=== PATIENT | female | born 1940 | race Caucasian/White ===

== ENCOUNTER 2016-03-17 12:24 | Inpatient (IN) | payer MEDICARE, OTHER ==
[~2016-03-17] VITALS: Ht 165.1 cm; Wt 68.2 kg
[~2016-03-17 12:24] MED LIST: DONE5TAB7 PO; NEBI5TAB9 PO; PRED20TA PO; TRAM50TA2 PO
[2016-03-17] MEDS ORDERED: morphine 2 MG INJ IV STA (15:46)
[2016-03-17] MEDS ORDERED: SOD CHLORIDE 0.9% 1,000 ML IV STA (15:46)
[2016-03-17] MEDS ORDERED: ONDANSETRON 4 MG INJ IV STA (15:46)
[2016-03-17 16:52] LABS: BASOPHILS % 0.4 % (0.0-2.0); CONDITION 1; HEMATOCRIT 41.9 % (37.0-47.0); HEMOGLOBIN 14.4 g/dl (12.0-16.0); LH ANALYZER COMMENTS 1; LYMPHOCYTES # 1.1 10^3/ul (0.8-2.9); LYMPHOCYTES % 17.4 % (15.0-51.0); MEAN CORPUSCULAR HEMOGLOBIN 30.4 pg (29.0-33.0); MEAN CORPUSCULAR HGB CONC 34.3 g/dl (32.0-37.0); MEAN CORPUSCULAR VOLUME 88.7 fl (82.0-101.0); MEAN PLATELET VOLUME 6.5 fl (7.4-10.4); MONOCYTE # 0.9 10^3/ul (0.3-0.9); NEUTROPHIL # 4.1 10^3/ul (1.6-7.5); NEUTROPHILS % 68.2 % (39.0-77.0); PLATELET COUNT 221 10^3/UL (140-440); RED BLOOD COUNT 4.72 10^6/ul (4.20-5.40); RED CELL DISTRIBUTION WIDTH 14.6 % (11.5-14.5); UNCORRECTED WBC 6.1 10^3/ul (4.8-10.8); WHITE BLOOD COUNT 6.1 10^3/ul (4.8-10.8)
[2016-03-17 17:01] LABS: ALBUMIN 3.5 g/dl (3.3-4.9); CHLORIDE 98 mmol/L (97-110); POTASSIUM 3.7 mmol/L (3.5-5.1); SODIUM 133 mmol/L (135-144)
[2016-03-17 17:02] LABS: INR 0.97; PROTIME 12.9 Sec (12.2-14.2)
[2016-03-17 17:03] LABS: CREATININE 0.88 mg/dl (0.44-1.00); PARTIAL THROMBOPLASTIN TIME 28.7 Sec (25.0-35.0)
[2016-03-17 17:04] LABS: ALANINE AMINOTRANSFERASE 46 IU/L (13-69); ALBUMIN/GLOBULIN RATIO 1.06; ALKALINE PHOSPHATASE 113 IU/L (42-121); ANION GAP 18 (8-16); ASPARTATE AMINO TRANSFERASE 58 IU/L (15-46); BILIRUBIN,INDIRECT 0.5 mg/dl (0-1.1); BILIRUBIN,TOTAL 0.5 mg/dl (0.2-1.3); BLOOD UREA NITROGEN 21 mg/dl (7-20); CARBON DIOXIDE 21 mmol/L (21-31); GLUCOSE 77 mg/dl (70-220); TOTAL PROTEIN 6.8 g/dl (6.1-8.1)
--- NOTE | 2016-03-17 17:10 | ERA ---
ER Documentation Chief Complaint Date/Time DATE: 03/17/16 TIME: 17:07 Chief Complaint sob, diarrhea HPI 75-year-old female who presents with family member for abdominal pain. Family reports abdominal pain nausea and diarrhea. She states multiple episodes of stool to the point where the patient cannot even get out of bed and is having regular bowel movements. She also collapsed once to the floor without hitting her head. She is having mild shortness of breath related to asthma but this is improving. She denies any chest pain, no pleuritic pain. No recent travel, sick contacts, antibiotics. Her abdominal pain is noted to the right upper quadrant, she states prior cholecystectomy. The pain is noted to be sharp and intermittent associated with diarrhea. ROS All systems reviewed and are negative except as per history of present illness. Medications Home Meds Active Scripts Tramadol HCl (Tramadol HCl) 50 Mg Tablet, 50 MG PO BID, #30 TAB Prov:TONY ALEJANDRO MD 01/19/16 Reported Medications Nebivolol* (Bystolic*) 5 Mg Tab, 5 MG PO DAILY, #30 TAB 01/15/16 Donepezil* (Donepezil*) 5 Mg Tablet, 5 MG PO DAILY, #30 TAB 01/15/16 Discontinued Scripts Prednisone* (Prednisone*) 20 Mg Tab, 20 MG PO DAILY for 5 Days, TAB Prov:TONY ALEJANDRO MD 01/19/16 Allergies Allergies: Coded Allergies: No Known Allergy (Unverified , 03/17/16) PMhx/Soc History of Surgery: Yes (APPENDECTOMY, CHOLECYSTECTOMY) Anesthesia Reaction: No Hx Neurological Disorder: No Hx Respiratory Disorders: No Hx Cardiac Disorders: Yes (HTN) Hx Psychiatric Problems: No Hx Miscellaneous Medical Probl: No Hx Alcohol Use: No Hx Substance Use: No Hx Tobacco Use: No Smoking Status: Never smoker FmHx Family History: No diabetes Physical Exam Vitals Vital Signs Date Time Temp Pulse Resp B/P Pulse Ox O2 Delivery O2 Flow Rate FiO2 03/17/16 18:02 74 18 108/57 98 Nasal Cannula 2.0 03/17/16 12:29 99.0 101 20 120/58 98 Physical Exam General: Well developed, well nourished, no acute distress Head: Normocephalic, atraumatic. Eyes: Pupils equally reactive, EOM intact ENT: Moist mucous membranes Neck: Supple, no lymphadenopathy Respiratory: Lungs clear bilaterally, no distress Cardiovascular: RRR, no murmurs, rubs, or gallops Abdominal: Soft, mild focal tenderness in the right upper quadrant without rebound or guarding, no pulsatile mass : Deferred MSK: No edema, no unilateral swelling, 5/5 strength Neurologic: Alert and oriented, moving all extremities, normal speech, no focal weakness, no cerebellar signs Skin: No rash Psych: Normal mood Result Diagram: 03/17/16 1635 03/17/16 1635 Results 24 hrs Laboratory Tests Test 03/17/16 16:35 Activated Partial Thromboplast Time 28.7Sec Alanine Aminotransferase (ALT/SGPT) 46IU/L Albumin 3.5g/dl Albumin/Globulin Ratio 1.06 Alkaline Phosphatase 113IU/L Anion Gap 18 Aspartate Amino Transf (AST/SGOT) 58IU/L Basophils # 0.010^3/ul Basophils % 0.4% Blood Morphology Comment Blood Urea Nitrogen 21mg/dl Calcium Level 9.0mg/dl Carbon Dioxide Level 21mmol/L Chloride Level 98mmol/L Creatinine 0.88mg/dl Direct Bilirubin 0.00mg/dl Eosinophils # 0.010^3/ul Eosinophils % 0.0% Globulin 3.30g/dl Glucose Level 77mg/dl Hematocrit 41.9% Hemoglobin 14.4g/dl INR International Normalized Ratio 0.97 Indirect Bilirubin 0.5mg/dl Lipase 356U/L Lymphocytes # 1.110^3/ul Lymphocytes % 17.4% Mean Corpuscular Hemoglobin 30.4pg Mean Corpuscular Hemoglobin Concent 34.3g/dl Mean Corpuscular Volume 88.7fl Mean Platelet Volume 6.5fl Monocytes # 0.910^3/ul Monocytes % 14.0% Neutrophils # 4.110^3/ul Neutrophils % 68.2% Nucleated Red Blood Cells # 0.010^3/ul Nucleated Red Blood Cells % 0.0/100WBC Platelet Count 35147^3/UL Potassium Level 3.7mmol/L Prothrombin Time 12.9Sec Prothrombin Time Ratio 1.0 Red Blood Count 4.7210^6/ul Red Cell Distribution Width 14.6% Sodium Level 133mmol/L Total Bilirubin 0.5mg/dl Total Protein 6.8g/dl Troponin I < 0.012ng/ml White Blood Count 6.110^3/ul Current Medications Medications (Trade) Dose Ordered Sig/Balaji Route PRN Reason Start Time Stop Time Status Last Admin Dose Admin Sodium Chloride (NS) 1,000 ml @ 1,000 mls/hr Q1H STAT IV 03/17/16 15:46 03/17/16 16:45 DC 03/17/16 17:05 Morphine Sulfate (morphine) 2 mg ONCE STAT IV 03/17/16 15:46 03/17/16 15:48 DC 03/17/16 17:05 Ondansetron HCl 4 mg 4 mg ONCE STAT IV 03/17/16 15:46 03/17/16 15:48 DC 03/17/16 17:04 Azithromycin (Zithromax 500mg/ NS (Pmx)) 250 ml @ 250 mls/hr ONCE ONCE IVPB 03/17/16 20:00 03/17/16 20:59 DC 03/17/16 20:09 Ondansetron HCl (Zofran Inj) 4 mg ER BRIDGE PRN IV NAUSEA AND/OR VOMITING 03/17/16 21:00 03/18/16 20:59 Acetaminophen (Tylenol Tab) 650 mg ER BRIDGE PRN PO MILD PAIN/FEVER 03/17/16 21:00 03/18/16 20:59 Procedures/MDM EKG, MONITORS, & DIAGNOSTIC IMAGING: EKG: I reviewed and interpreted a 12-lead EKG. Rhythm: Normal sinus rhythm Ectopy: None Intervals: No abnormalities ST segments: No elevations or depressions T waves: No contiguous inversions Chest x-ray: I reviewed and interpreted a 1 view of the chest Mediastinum: No enlargement Cardiac silhouette: No cardiomegaly Airspace: Clear lung rivas bilaterally without evidence of pneumothorax Bones: No evidence of fracture CT abdomen and pelvis: IMPRESSION: 1. Small high density fluid in the right adnexal region, likely reflecting small blood products of uncertain etiology. An underlying ruptured hemorrhagic ovarian cyst could be considered.. 2. Patchy reticulonodular interstitial densities through the lower lungs, suspicious for atypical infection, possibly Mycobacterium avium complex. 3. Mild to moderate aortic and branch vessel calcification. 4. Splenorenal venous shunt. 5. There is a prominent anterior left mesenteric vessel, with adjacent fat stranding. This may reflect a mesenteric thrombophlebitis. 6. Lumbar levoscoliosis. RPTAT: HBST Ultrasound pelvis: IMPRESSION: Very limited transabdominal study. Filled urinary bladder and the patient declined endovaginal scanning. Nonvisualization of the ovaries. CT with IV and oral contrast may be helpful to at least better delineate the pelvic small bowel loops. MRI could evaluate the uterus and ovaries if endovaginal ultrasound cannot be performed. RPTAT: [facility] LAB INTERPRETATION: No significant leukocytosis, no anemia MEDICAL DECISION MAKING: The patient presents with abdominal pain and diarrhea. This is most likely a viral process however the patient is elderly with focal tenderness of the right upper quadrant. I believe she would benefit from CT imaging of the abdomen and pelvis. Her symptoms do not seem consistent with acute vascular process such as aneurysm. No evidence of pulmonary embolism. The patient reports a history of cholecystectomy raising the concern for possible bowel obstruction. Her shortness of breath seems to be related to mild asthma, she has no wheezing no hypoxia currently. No signs of acute coronary syndrome. No indication for breathing treatment currently. ER COURSE: The patient has multiple diagnostic imaging that are somewhat confusing. The patient's CT reads multiple issues including possible thrombophlebitis, possible MAC and possible hemorrhagic cyst. The patient's pelvic ultrasound is unrevealing. Her constellation of symptoms do not match the CT findings. The patient has no significant cough, no fevers, no white count. Infection seems unlikely. However, the patient will be covered with azithromycin. No indication for steroids. Her CT findings more likely represent underlying COPD. The patient has no lower abdominal tenderness. Unclear etiology to the patient's possible hemorrhagic cyst. Thrombophlebitis also seems unlikely. The patient may benefit from repeat CT with IV contrast. I discussed this with the admitting team. At this time given the possible near syncope and multiple abnormalities and diagnostic imaging inpatient hospitalization is appropriate. I kept the patient and/or family informed of laboratory and diagnostic imaging results throughout the emergency room course. DISPOSITION PLAN: Telemetry admission for evaluation of near syncope CONSULTATION: Accepting care team and consultations: I discussed the current laboratory data, diagnostic imaging and emergency care provided. Admitting team: Dr. Iniguez Admitting team indication: Insurance directed Departure Diagnosis: Primary Impression: Abdominal pain Qualified Code: R10.84 - Generalized abdominal pain Additional Impressions: Diarrhea Qualified Code: R19.7 - Diarrhea, unspecified type Near syncope Condition: Stable BORM, FRANCISCO A., MD Mar 17, 2016 17:09
[2016-03-17 17:17] LABS: TROPONIN-I < 0.012 ng/ml (0.00-0.12)
--- NOTE | 2016-03-17 17:22 | RADRPT ---
PROCEDURE: XR Chest. CLINICAL INDICATION: Abdominal pain TECHNIQUE: Single frontal view of the chest was obtained COMPARISON: 01/31/2016 FINDINGS: The heart is within normal limits. The thoracic aorta is calcified. There is increased lucency underneath the right diaphragm, which may represent bowel eventration ravinder brenda free air. The lungs are clear. There is no pleural effusion or pneumothorax. RPTAT: AA IMPRESSION: Questionable free air underneath the right diaphragm. Calcified aorta consistent with atherosclerotic disease. A call report was made and the findings discussed with Josef Mccoy at 03/17/2016 5:21:08 P M. .Mayo Cooper MD, MD Date Time Electronically viewed and signed by .Mayo Cooper MD, on 03/17/2016 17:22 .S/
--- NOTE | 2016-03-17 19:02 | RADRPT ---
PROCEDURE: CT abdomen and pelvis without contrast. CLINICAL INDICATION: Patient experiencing Abdominal Pain TECHNIQUE: CT scan of the abdomen and pelvis without contrast was performed. The patient was scan gabriel without intravenous contrast. 3-D coronal reformatted images were obtained from the [facility] images. The calculated radiation dose measures 602 mGy centimeters. The CTDI measures 11 mGy COMPARISON: 01/15/2016 FINDINGS: CT abdomen: There is patchy reticulonodular interstitial densities through the bilateral lower lungs. There is bronchial wall thickening.. The liver is normal in size and density, without intrahepatic biliary dilatation. The spleen and p ancreas are unremarkable noncontrast appearance. The gallbladder is surgically absent . There is mi ld associated prominence of the common bile duct.. The adrenal glands are symmetric and normal. The kidneys appear normal in size and contour. No renal calculus or hydronephrosis is visualized. There is no retroperitoneal lymphadenopathy. There is mild to moderate aortic and branch vessel calc ification. There is a thickened appearing vascular structure in the left anterior abdominal mesenter y, with adjacent fat stranding. There is a splenorenal venous shunt. Visualized bowel loops appear within normal limits. The appendix is not well seen, without adjacent inflammatory change.. CT pelvis: The urinary bladder appears normal. The pelvic organs are within normal limits. There is no abnorm al pelvic mass or adenopathy. There is small high density fluid in the pelvis, seen in the right ad nexal region. There is a right trans sacral stimulator lead. There is a mild lumbar levoscoliosis. IMPRESSION: 1. Small high density fluid in the right adnexal region, likely reflecting small blood products of uncertain etiology. An underlying ruptured hemorrhagic ovarian cyst could be considered.. 2. Patchy reticulonodular interstitial densities through the lower lungs, suspicious for atypical i nfection, possibly Mycobacterium avium complex. 3. Mild to moderate aortic and branch vessel calcification. 4. Splenorenal venous shunt. 5. There is a prominent anterior left mesenteric vessel, with adjacent fat stranding. This may ref lect a mesenteric thrombophlebitis. 6. Lumbar levoscoliosis. RPTAT: HBST .Virgil Butts MD, MD Date Time Electronically viewed and signed by .Virgil Butts MD, on 03/17/2016 19:02 .T/
[2016-03-17] MEDS ORDERED: AZITHROMYCIN 500MG/NS (PMX) 250 ML IVPB ONE (20:00)
--- NOTE | 2016-03-17 20:01 | RADRPT ---
PROCEDURE: US pelvis complete CLINICAL INDICATION: Pelvic high density fluid on CT. Question ovarian lesion. TECHNIQUE: Jimenez scale and color Doppler imaging of the pelvis was performed. The patient declined endovaginal scanning. The images were reviewed on a PACS workstation. COMPARISON: CT from earlier FINDINGS: The uterus measures 8.4 x 4.7 x 6.3 centimeters. The endometrial stripe was not able to be seen as the patient declined endovaginal scanning in the urinary bladder was not filled for the examination. Neither ovary was able to be seen. A small of free fluid was seen in the cul-de-sac but the more h igh-density fluid suggested by CT was not clearly appreciated. Very limited study. IMPRESSION: Very limited transabdominal study. Filled urinary bladder and the patient declined endovaginal scan dayami. Nonvisualization of the ovaries. CT with IV and oral contrast may be helpful to at least bet ter delineate the pelvic small bowel loops. MRI could evaluate the uterus and ovaries if endovagina l ultrasound cannot be performed. RPTAT: [facility] Physician Paula Date Time Electronically viewed and signed by Sarah Padilla Physician on 03/17/2016 20:00 LE/
[2016-03-17] MEDS ORDERED: ACETAMINOPHEN 325 MG TAB PO PRN (21:00)
[2016-03-17] MEDS ORDERED: ONDANSETRON 4 MG INJ IV PRN (21:00)
[2016-03-17] MEDS: FAMOTIDINE 20 MG INJ IV SCH (23:58)
[2016-03-18] VITALS (10 sets, daily range): BP systolic 113–159; BP diastolic 52–74; PULSE 59–78; RESP 16–20; TEMP 98; Ht 165.1 cm; Wt 68.2 kg
[2016-03-18] MEDS ORDERED: ONDANSETRON 4 MG INJ IV PRN
--- NOTE | 2016-03-18 00:40 | HP ---
DATE OF ADMISSION: 03/17/2016 PRESENTING COMPLAINT: Intermittent abdominal pain with associated diarrhea. HISTORY OF PRESENTING COMPLAINT: Ms. Meyers is a 75-year-old female who comes with a myriad of sym ptoms and it is unclear how everything is connected. Physically, she says that she has been having epigastric abdominal pain that has been worse over the last 3 days. She says she has been having th is pain intermittently for the past 9 months and it tends to come on its own and tends to resolve on its own. This episode, however, for the first time is associated with intractable diarrhea that oc curs about 4 or 5 times a day. Her reports that sometimes the patient is unable to control her bowel enough to get to the bathroom to where she has to wear a diaper. The patient also has bee n having some shortness of breath without chest discomfort, but today she had a near collapse episod e, which her attributes to dehydration from the diarrhea. At that point, the decision was m carly to bring her to the emergency room for evaluation. Of note is that there was no fever. There w as no chest pain. She denies any headaches. There is no weakness in any extremity or anything that is suggestive of focal deficit. There are no vision changes. There are no earaches. There is no joint pain. She has occasional blood in her stool, but she does not have nausea, she does not have vomiting. She cannot really ascertain if the blood is in the stool or was present after she wiped. However, she denies history of contacts with sick persons and her and herself are the only ones who live at home and her does not have similar symptoms. In the emergency room, CT sca n of her abdomen and pelvis was read by radiology to show multiple findings, which include a probabi lity of a ruptured hemorrhagic ovarian cyst, atypical probable pneumonia, and probable mesenteric th rombophlebitis. However, pain is located more in the epigastric region and radiates to her right up per quadrant; however, the patient is status post cholecystectomy and there is no evidence of gallst ones on CT of the abdomen. Ultrasound of the upper abdomen was not done. She is being admitted for further workup and better control of her symptoms. The patient and her are extremely poor historians. A lot of our history is obtained by reviewing previous medical records. PAST MEDICAL HISTORY: Positive for high blood pressure only. 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 SURGICAL HISTORY: She has had an appendectomy as well as a cholecystectomy. The patient has had ri [facility] [place] breast partial mastectomy for ductal carcinoma in situ. FAMILY HISTORY: Positive for high blood pressure, diabetes, dementia, and cardiac disease in both p arents and grandparents. SOCIAL HISTORY: The patient is a chronic smoker. She has cut back now, but smokes about half a pac k a day, and has smoked for many years, up to 35 years. She denies alcohol or illicit drug use, how ever. REVIEW OF SYSTEMS: A 12-point review of system was done. Pertinent findings are as noted in the HP I. HOME MEDICATION: 1. Donepezil 5 mg daily. 2. Bystolic 5 mg daily. 3. Tramadol 50 mg p.o. b.i.d. PHYSICAL EXAMINATION VITAL SIGNS: Temperature 99.0, pulse is 74, respirations 18, blood pressure 108/57, saturations are 98% on room air. GENERAL: The patient did look somewhat lethargic, but she was alert and oriented, in no distress. HEENT: Head is normocephalic with equal, round, and reactive pupils. Mucous membranes are moist. She did have mild conjunctival pallor, but there was no scleral jaundice. Her posterior pharynx was clear of erythema and exudate. NECK: Supple and nontender. CHEST: Reveals clear breath sounds with good air entry on both sides. CARDIOVASCULAR: Heart sounds were S1 and S2 only without added sounds or murmurs. ABDOMEN: She did have mild right upper quadrant tenderness, point tenderness to palpation, not so m uch epigastric tenderness, however. There was no flank tenderness. She has normoactive bowel sound s in 4 quadrants. EXTREMITIES: Lower extremity was devoid of edema. SKIN: Devoid of rash or jaundice. NEUROLOGIC: She had no focal deficits. PSYCHIATRIC: She was calm, cooperative with exam, and denies hearing voices or hallucinations. LABORATORY VALUES: She had a CBC that was unremarkable. Her chemistry had the following nonspecifi c abnormalities: Serum sodium that was slightly low at 133. BUN that was slightly elevated at 21. AST that was slightly elevated at 58. However, this is not new for patient. Her troponins and the rest of her LFTs were unremarkable. Globulin level was slightly high at 3.3. Lipase level was jus t barely high at 356. The last time she was here, lipase was 67 two months ago. Urinalysis is pend ing at this time. I reviewed previous lab results and imaging studies. Today's imaging studies, ho andree, a chest x-ray, on my review, basically did not show any real acute cardiopulmonary abnormalit ies. However, the radiologist thought there was some free air underneath the right diaphragm. CT o f the abdomen and pelvis was done and essentially this free air was not confirmed; however, the find ings are summarized in my HPI were noted. A pelvic ultrasound was done to evaluate concerns for pro bable ruptured ovarian cyst. It did show that it was a very limited study, and the high-density flu id on CT was not clearly appreciated. The radiologist is recommending that if we wanted to proceed, we could do an MRI of the pelvis to further evaluate the uterus and the ovaries more appropriately, if patient continues to refuse and endovaginal ultrasound, which would have been more informative. EKG: I reviewed her EKG and it was nonischemic with normal sinus rhythm, normal rate control. ASSESSMENT: A 75-year-old female who presents with a 3-day history of abdominal pain and diarrhea a nd CT of the abdomen showing multiple abnormalities. 1. Epigastric abdominal pain and diarrhea. This could be secondary to an acute pancreatitis. Even though the patient's lipase levels are barely elevated, they are still significantly elevated as co mpared to prior and could explain the symptoms. Hence, the patient will be treated as ____ for panc reatitis, keeping her n.p.o., IV fluid hydration, and intravenous PPI therapy as well as pain contro l. We will also, however, order stool studies and see what we find. 2. Near syncopal episode likely secondary to dehydration from diarrhea. The dehydration is also vickers pported by the elevated BUN in her labs. Again continue hydration and see how she does. We will al so put the patient on fall precautions. 3. Chronic smoker. The patient is status post tobacco cessation counseling. This will continue to be reinforced during her hospitalization. This has taken more than [address] findings of reticulonodular densities throughout the lower lungs concerning for possible atyp ical infection. I will get a dedicated CT of the chest to better define the lung parenchyma, prefer ably with IV contrast and depending on the findings, we will proceed from there. 5. Findings of small high-density fluid in the right adnexal region with concerns for probable hemo rrhagic ovarian cyst. This is unlikely in this patient; however, patient also has no symptoms of pe lvic pain at this time or concerns of pelvic etiology of her problems. As such, we will continue to observe only and intervene only if there is concern, if the patient develops belly pain or develops vaginal bleeding that is concerning. 6. Concern for mesenteric thrombophlebitis based on findings of a prominent anterior mesenteric ves ronald. We will repeat the CT of the abdomen with intravenous contrast again to properly define these regions and intervene only if findings are confirmed. 7. History of ductal carcinoma in situ status post partial mastectomy. We will try and obtain andrew rds to find out where the patient stands with this, as the patient's and herself are not ravinder y good historians, and see if any further interventions are required. Probability of occult metasta sis would explain some of the CT findings. Again followup CT with IV contrast. 8. Chronic dementia. Continue home donepezil. 9. High blood pressure. Continue home Bystolic. 10. Supportive care will include pain control, antiemetics, and antipyretics as necessary. 11. Prophylaxis will be with heparin as well as Pepcid intravenously. For further intervention and clarifications, please review the patient's chart and my orders. Admission time has been about an hour. Dictated By: ROZ BECK MD, BA/MAYKEL Conf#: [id number] DID#: [id number]
[2016-03-18 00:43] LABS: CREATINE KINASE 30 IU/L (23-200)
[2016-03-18 00:53] LABS: CK-MB 0.39 ng/ml (0.0-2.4)
[2016-03-18 01:07] LABS: TROPONIN-I < 0.012 ng/ml (0.00-0.12)
[2016-03-18] MEDS: DEXTROSE 5%-0.45% NACL 1,000 ML IV SCH ×3 (01:08→20:11)
[2016-03-18 06:01] LABS: BASOPHILS % 0.8 % (0.0-2.0); EOSINOPHILS % 0.4 % (0.0-7.0); HEMATOCRIT 37.9 % (37.0-47.0); HEMOGLOBIN 12.9 g/dl (12.0-16.0); LYMPHOCYTES # 1.4 10^3/ul (0.8-2.9); LYMPHOCYTES % 34.8 % (15.0-51.0); MEAN CORPUSCULAR HEMOGLOBIN 30.4 pg (29.0-33.0); MEAN CORPUSCULAR HGB CONC 33.9 g/dl (32.0-37.0); MEAN CORPUSCULAR VOLUME 89.5 fl (82.0-101.0); MEAN PLATELET VOLUME 6.8 fl (7.4-10.4); MONOCYTE # 0.6 10^3/ul (0.3-0.9); NEUTROPHIL # 1.9 10^3/ul (1.6-7.5); PLATELET COUNT 151 10^3/UL (140-440); RED BLOOD COUNT 4.23 10^6/ul (4.20-5.40); RED CELL DISTRIBUTION WIDTH 14.8 % (11.5-14.5)
[2016-03-18 06:03] LABS: CONDITION 1; LH ANALYZER COMMENTS 1
[2016-03-18 06:05] LABS: ALBUMIN 2.5 g/dl (3.3-4.9)
[2016-03-18 06:06] LABS: POTASSIUM 3.7 mmol/L (3.5-5.1)
[2016-03-18 06:07] LABS: CREATININE 0.77 mg/dl (0.44-1.00)
[2016-03-18 06:08] LABS: BILIRUBIN,INDIRECT 0.4 mg/dl (0-1.1); BILIRUBIN,TOTAL 0.4 mg/dl (0.2-1.3); CALCIUM 8.1 mg/dl (8.4-10.2); TOTAL PROTEIN 5.2 g/dl (6.1-8.1)
[2016-03-18 06:09] LABS: CHOL/HDL RATIO 4.7 RATIO
[2016-03-18 06:12] LABS: CREATINE KINASE 30 IU/L (23-200)
[2016-03-18 06:26] LABS: TROPONIN-I < 0.012 ng/ml (0.00-0.12)
[2016-03-18] MEDS: traMADol 50 MG TAB PO PRN ×2 (06:34→20:11)
[2016-03-18] MEDS: ASPIRIN (EC) 81 MG TAB PO SCH (08:45)
[2016-03-18] MEDS: FAMOTIDINE 20 MG INJ IV SCH ×2 (08:45→20:11)
[2016-03-18] MEDS: DOCUSATE SODIUM 100 MG CAP PO SCH ×3 (08:45→20:11)
[2016-03-18] MEDS: ENOXAPARIN 40 MG/0.4 ML SYG SC SCH (08:49)
[2016-03-18] MEDS: NEBIVOLOL 5 MG TAB PO SCH ×2 (08:50→12:17)
[2016-03-18] MEDS: DONEPEZIL 5 MG TAB PO SCH ×2 (08:50→12:16)
[2016-03-18] MEDS ORDERED: IOHEXOL 300MG/ML 150 ML BTL ONE (08:56)
[2016-03-18] MEDS ORDERED: SOD CHLORIDE 0.9% 100 ML ONE (08:56)
--- NOTE | 2016-03-18 12:04 | PN ---
Date/Time of Note Date/Time of Note DATE: 03/18/16 TIME: 11:54 Assessment/Plan VTE Prophylaxis VTE Prophylaxis Intervention: LMWH Lines/Catheters IV Catheter Type (from [facility]): Peripheral IV Urinary Cath still in place: No Assessment/Plan Chief Complaint/Hosp Course Assessment and plan 1. Abdominal pain. Suspect secondary to pancreatitis. Continue IV fluids for now. npo for now. Continue on PPI 2. Reported syncope. Suspect secondary to dehydration from reported diarrhea. Continue IV hydration. 3. Suspect mesenteric thrombophlebitis. CT scan of the abdomen with IV contrast is pending. Follow-up. 4. Suspect underlying ruptured hemorrhagic ovarian cyst. A CT scan of the abdomen and pelvis with IV contrast ordered. We'll follow-up with diagnostic for better imaging. 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 Awaiting CT scan of the chest with contrast for further delineation. Check AFB 6. History of dementia. Continue on donepezil 7. Essential hypertension. Continue on antihypertensives and adjust as needed Disposition and plan: Follow-up on CT scan of the abdomen and chest with contrast. npo for now. Continue IV fluids Discussed plan of care with Problems: Subjective 24 Hr Interval Summary Free Text/Dictation still with reported abdominal pain Exam/Review of Systems Vital Signs Vitals Vital Signs Date Time Temp Pulse Resp B/P Pulse Ox O2 Delivery O2 Flow Rate FiO2 03/18/16 09:01 68 03/18/16 07:31 98.4 18 136/60 95 03/18/16 06:53 Room Air 03/18/16 02:00 2.0 Results Result Diagram: 03/18/16 0510 03/18/16 0510 Results 24 hrs Laboratory Tests Test 03/17/16 16:35 03/18/16 05:10 03/18/16 05:16 Activated Partial Thromboplast Time 28.7 Alanine Aminotransferase (ALT/SGPT) 46 33 Albumin 3.5 2.5 #L Albumin/Globulin Ratio 1.06 Alkaline Phosphatase 113 86 Anion Gap 18 H 12 Aspartate Amino Transf (AST/SGOT) 58 H 59 H Basophils # 0.0 0.0 Basophils % 0.4 0.8 Blood Morphology Comment Blood Urea Nitrogen 21 H 23 H Calcium Level 9.0 8.1 L Carbon Dioxide Level 21 24 Chloride Level 98 103 Creatinine 0.88 0.77 Direct Bilirubin 0.00 0.00 Eosinophils # 0.0 0.0 Eosinophils % 0.0 0.4 Globulin 3.30 H Glucose Level 77 70 Hematocrit 41.9 37.9 Hemoglobin 14.4 12.9 INR International Normalized Ratio 0.97 Indirect Bilirubin 0.5 0.4 Lipase 356 H 373 H Lymphocytes # 1.1 1.4 Lymphocytes % 17.4 34.8 Mean Corpuscular Hemoglobin 30.4 30.4 Mean Corpuscular Hemoglobin Concent 34.3 33.9 Mean Corpuscular Volume 88.7 89.5 Mean Platelet Volume 6.5 L 6.8 L Monocytes # 0.9 0.6 Monocytes % 14.0 H 16.0 H Neutrophils # 4.1 1.9 Neutrophils % 68.2 48.0 Nucleated Red Blood Cells # 0.0 0.0 Nucleated Red Blood Cells % 0.0 0.0 Platelet Count 221 151 # Potassium Level 3.7 3.7 Prothrombin Time 12.9 Prothrombin Time Ratio 1.0 Red Blood Count 4.72 4.23 Red Cell Distribution Width 14.6 H 14.8 H Sodium Level 133 L 135 Total Bilirubin 0.5 0.4 Total Protein 6.8 5.2 #L Troponin I < 0.012 < 0.012 White Blood Count 6.1 4.0 #L Amylase Level 104 Cholesterol Level 137 Cholesterol/HDL Ratio 4.7 HDL Cholesterol 29 L LDL Cholesterol, Calculated 88 Magnesium Level 2.0 Triglycerides Level 99 Creatine Kinase 30 Creatine Kinase Index 1.3 Creatinine Kinase MB (Mass) 0.40 Medications Medications Current Medications Donepezil HCl (Aricept) 5 mg DAILY PO ; Start 03/18/16 at 09:00 Miscellaneous Medication (Bystolic) 5 mg DAILY PO ; Start 03/18/16 at 09:00 Tramadol HCl (Ultram) 50 mg BID PRN PO pain Last administered on 03/18/16at 06: 34; Admin Dose 50 MG; Start 03/17/16 at 23:30 Aspirin (Halfprin) 81 mg DAILY PO Last administered on 03/18/16at 08:45; Admin Dose 81 MG; Start 03/18/16 at 09:00 Ondansetron HCl 4 mg 4 mg Q6H PRN IV NAUSEA AND/OR VOMITING; Start 03/18/16 at 00:00 Dextrose/Sodium Chloride (D5-1/2ns) 1,000 ml @ 100 mls/hr Q10H IV Last administered on 03/18/16at 08:46; Admin Dose 100 MLS/HR; Start 03/18/16 at 00: 00 Famotidine (Pepcid Iv) 20 mg BID IV Last administered on 03/18/16at 08:45; Admin Dose 20 MG; Start 03/18/16 at 00:00 Enoxaparin Sodium (Lovenox) 40 mg DAILY SC Last administered on 03/18/16at 08: 49; Admin Dose 40 MG; Start 03/18/16 at 09:00 Acetaminophen (Tylenol Tab) 650 mg Q6H PRN PO PAIN AND OR ELEVATED TEMP; Start 03/18/16 at 00:00 Morphine Sulfate (morphine) 2 mg Q4H PRN IV pain; Start 03/18/16 at 00:00 Docusate Sodium (Colace) 100 mg BID PO ; Start 03/18/16 at 00:00 LUCAS VELASCO Mar 18, 2016 12:03
--- NOTE | 2016-03-18 13:07 | RADRPT ---
PROCEDURE: CT Chest, Abdomen and Pelvis with intravenous contrast CLINICAL INDICATION: Dyspnea, pain. TECHNIQUE: CT of the chest, abdomen, and pelvis was performed on a multi-detector scanner. The pa tietroy was scanned following the uncomplicated administration of 100 cc Omnipaque-300 intravenous con trast. Coronal and sagittal images were obtained from the axial data set. Images were reviewed on a high-resolution PACS workstation. CTDI = 12.48 mGy. DLP = 866 mGy-cm. COMPARISON: CT, 03/17/2016 and 08/30/2015 FINDINGS: CT chest: Chronic biapical scarring and bronchiectasis is again noted, greater on the right, grossly stable ov er time. There is mild pulmonary emphysema. Areas of tree in bud opacity are noted at the bilatera l lung bases, greater on the left, new when compared to the prior CT, suggestive of infectious or in flammatory bronchiolitis. No pleural effusion or pneumothorax is seen. No suspicious pulmonary nod ule or mass lesion is identified. The heart size is normal, without pericardial effusion. There is no thoracic aortic aneurysm or dis section. Aortic atherosclerotic calcifications are noted. No mediastinal, hilar, axillary or supra clavicular lymphadenopathy is identified. The patient appears to be status post right breast lumpec tiffany. 4.4 cm low density collection is seen in the right breast, most likely postoperative seroma. CT abdomen and pelvis: Gallbladder is surgically absent. Liver demonstrates surface nodularity, concerning for cirrhosis. Superior mesenteric vein to left renal vein portosystemic shunt is identified, which can be seen in the setting of portal hypertension. Biliary tree, pancreas, spleen, adrenal glands and kidneys are unremarkable. No urolithiasis or obstructive uropathy is identified. The stomach is grossly unrem arkable. There is no abdominal aortic aneurysm or dissection. Aortic vascular calcifications are present. T here is no retroperitoneal lymphadenopathy. The ramon hepatis region is clear. No bowel obstruction, free intraperitoneal air or abscess is identified. There is no diverticulosis , diverticulitis, colitis or appendicitis. Again noted is mild inflammatory stranding surrounding a vascular structure in the lateral left omental fat, of uncertain etiology or significance. Urinary bladder is unremarkable. Uterus demonstrates a 3 cm fibroid. No pelvic free fluid or lymphadenopa thy is seen. Implanted stimulator device is present within left flank subcutaneous fat. The surrounding osseous structures are remarkable for degenerative spondylosis of the spine. No ost eolytic or osteoblastic lesion is detected. IMPRESSION: 1. Findings compatible with bilateral lower lobe infectious/inflammatory bronchiolitis, as above. 2. Mild pulmonary emphysema. 3. The patient is status post right breast lumpectomy. 4.4 cm low density collection is seen in th e surgical bed, most likely postoperative seroma. 4. Liver demonstrates surface nodularity, concerning for cirrhosis. Portosystemic shunt is identif ied, as described above, which can be seen in the setting of portal hypertension. 5. Gallbladder is surgically absent. 6. Aortoiliac atherosclerotic calcifications are present. 7. Mild inflammatory stranding/edema is seen surrounding a vascular structure in the lateral left o mental fat, unchanged from recent prior CT, of uncertain significance or etiology. 8. Uterus demonstrates a 3 cm fibroid. No pelvic free fluid is seen. RPTAT: UU .Dann Barnett MD, MD Date Time Electronically viewed and signed by .Dann Barnett MD, on 03/18/2016 13:07 .R/
--- NOTE | 2016-03-18 14:06 | RADRPT ---
Echocardiogram Report Patient Name: KATHLEEN ENCINAS Gender: Female Date: 1940 Study Date: 18-Mar-2016 [employer] Advisor: Johanna Rodriguez RDCS Location: [id number] Ref. Physician: ROZ BECK Quality: Good Procedures: Transthoracic echocardiogram with complete 2D, M-Mode, and doppler examination. Indications: Shortness of breath. 2D/M Mode Doppler Measurement Value Normal Ranges Measurement Value Normal Ranges LVIDd 2D 4.2 3.5 - 5.6 cm AV Peak Rodrigue 1.7 m/sec LVIDs 2D 2.2 2.1 - 4.1 cm AV Peak PG 12.0 mmHg LVPWd 2D 0.9 0.6 - 1.1 cm LVOT Peak Rodrigue 1.2 m/sec IVSd 2D 0.8 0.6 - 1.1 cm LVOT Peak PG 5.5 mmHg AoR Diam 2D 1.9 2.0 - 3.7 cm MV E Peak Rodrigue 0.8 m/sec EDV 2D 78.6 cm3 MV A Peak Rodrigue 0.8 m/sec ESV 2D 10.5 cm3 MV E/A 0.9 LA Dimen 2D 3.7 2.3 - 4.0 cm MV Decel Time 262 msec MV Decel [place] 3 MV E/A 0.9 Findings Left Ventricle: Normal left ventricular systolic function. Normal left ventricular cavity size. Normal left ventricular wall thickness. Ejection fraction is visually estimated at 65 %. Tissue Doppler/Mitral Doppler indices are consistent with impaired relaxation (Stage I diastolic dysfunction). Right Ventricle: Normal right ventricular size. Normal right ventricular systolic function. Left Atrium: The left atrium is normal in size. Right Atrium: The right atrium is normal in size. Mitral Valve: Mitral valve leaflets appear mildly thickened. Trace mitral regurgitation. Aortic Valve: Normal appearance of the aortic valve. No significant aortic stenosis or insufficiency. Tricuspid Valve: Normal appearance and function of the tricuspid valve with trace physiologic regurgitation. Pulmonic Valve: Normal pulmonic valve appearance. Pericardium: Normal pericardium with no significant pericardial effusion. Aorta: Normal aortic root. IVC: Normal size and normal respiratory collapse consistent with normal right atrial pressure. Pulmonary Artery: Normal pulmonary artery size. Conclusions 1.Normal left ventricular systolic function. Normal left ventricular cavity size. Normal left ventricular wall thickness. Ejection fraction is visually estimated at 65 %. Tissue Doppler/Mitral Doppler indices are consistent with impaired relaxation (Stage I diastolic dysfunction). 2.Normal right ventricular size. Normal right ventricular systolic function. 3.The left atrium is normal in size. 4.The right atrium is normal in size. 5.No significant valvular stenosis or regurgitation seen. 6.Normal pericardium with no significant pericardial effusion. Electronically Signed By: Ben Mark 18-Mar-2016 14:05:58 -0800 Patient Name: KATHLEEN ENCINAS Study Date: 18-Mar-2016 [id number]
[2016-03-18] MEDS: morphine 2 MG INJ IV PRN (17:04)
[2016-03-19 06:52] LABS: ADD UMIC YES; URINE BILIRUBIN (Dip) NEGATIVE (NEGATIVE); URINE BLOOD (Dip) 1+ (NEGATIVE); URINE COLOR LT. YELLOW (YELLOW); URINE GLUCOSE (Dip) NEGATIVE (NEGATIVE); URINE KETONES (Dip) NEGATIVE (NEGATIVE); URINE LEUKOCYTE ESTERASE (Dip) 1+ (NEGATIVE); URINE NITRITE (Dip) NEGATIVE (NEGATIVE); URINE TOTAL PROTEIN (Dip) NEGATIVE (NEGATIVE); URINE UROBILINOGEN (Dip) 1.0 E.U./dL (0.1-1.0)
[2016-03-19 07:34] LABS: BACTERIA,URINE FEW; URINE RBCS 0-2 /HPF (0)
[2016-03-19] MEDS: LEVOFLOXACIN 500MG/D5W (PMX) 100 ML IVPB SCH (09:40)
[2016-03-19] MEDS: FAMOTIDINE 20 MG INJ IV SCH ×2 (09:42→23:13)
[2016-03-19] MEDS: ENOXAPARIN 40 MG/0.4 ML SYG SC SCH (09:42)
[2016-03-19] MEDS: DEXTROSE 5%-0.45% NACL 1,000 ML IV SCH ×2 (09:48→18:54)
--- NOTE | 2016-03-19 10:34 | PN ---
Date/Time of Note Date/Time of Note DATE: 03/19/16 TIME: 10:22 Assessment/Plan VTE Prophylaxis VTE Prophylaxis Intervention: LMWH Lines/Catheters IV Catheter Type (from Nrs): Peripheral IV Urinary Cath still in place: No Assessment/Plan Assessment/Plan 1. Abdominal pain and diarrhea. Suspect secondary to pancreatitis vs gastroenteritis vs abd pain possibly from ?raptured ovarian cyst. - symptom improved, pt already asking to eat. plan is to start clear diet and advance as tolerated. Will consider additional imaging as needed. pain meds PRN. Continue on PPI 2. Reported syncope. Suspect secondary to dehydration from reported diarrhea. Continue IV hydration. - 2D-echo with preserved EF and trops neg x 3 - Cont to monitor closely 3. Suspect mesenteric thrombophlebitis. CT scan of the abdomen with IV contrast is pending. Follow-up. 4. Suspect underlying ruptured hemorrhagic ovarian cyst. REWORKER consult based on clinical course. 5. 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 checking AFB. Awaiting pulmonary eval 6. History of dementia. Continue Donepezil 7. Essential hypertension. Continue on antihypertensives and adjust as needed Subjective 24 Hr Interval Summary Free Text/Dictation sleepy, but somehow arousable. not interested in talking. No diarrhea per nursing Exam/Review of Systems Vital Signs Vitals Vital Signs Date Time Temp Pulse Resp B/P Pulse Ox O2 Delivery O2 Flow Rate FiO2 03/18/16 20:10 98.6 59 20 148/64 98 Room Air 03/18/16 02:00 2.0 Intake and Output 03/18/16 03/18/16 03/19/16 14:59 22:59 06:59 Intake Total 740 ml 700 ml Output Total 200 ml Balance 740 ml 500 ml Exam Constitutional: other (sleepy, but somehow arousable. not interested in talking ) Head: atraumatic, normocephalic Respiratory: diminished breath sounds Cardiovascular: regular rate and rhythm Gastrointestinal: other (mild grimaces noted on palpation), soft Extremities: normal pulses Results Result Diagram: 03/18/16 0510 03/18/16 0510 Results 24 hrs Laboratory Tests Test 03/19/16 04:30 Urine Bacteria FEW Urine Bilirubin NEGATIVE Urine Clarity CLEAR Urine Color LT. YELLOW Urine Epithelial Cells FEW Urine Glucose NEGATIVE Urine Hemoglobin 1+ H Urine Ketones NEGATIVE Urine Leukocyte Esterase 1+ H Urine Microscopic RBC 0-2 Urine Microscopic WBC 10-25 Urine Nitrite NEGATIVE Urine Specific [place] 1.010 Urine Total Protein NEGATIVE Urine Urobilinogen 1.0 E.U./dL Urine pH 6.5 Medications Medications Current Medications Donepezil HCl (Aricept) 5 mg DAILY PO Last administered on 03/18/16 12:16; Admin Dose 5 MG; Start 03/18/16 at 09:00 Miscellaneous Medication (Bystolic) 5 mg DAILY PO Last administered on 12:17; Admin Dose 5 MG; Start 03/18/16 at 09:00 Tramadol HCl (Ultram) 50 mg BID PRN PO pain Last administered on 03/18/16 20: 11; Admin Dose 50 MG; Start 03/17/16 at 23:30 Aspirin (Halfprin) 81 mg DAILY PO Last administered on 03/18/16 08:45; Admin Dose 81 MG; Start 03/18/16 at 09:00 Ondansetron HCl 4 mg 4 mg Q6H PRN IV NAUSEA AND/OR VOMITING; Start 03/18/16 at 00:00 Dextrose/Sodium Chloride (D5-1/2ns) 1,000 ml @ 100 mls/hr Q10H IV Last administered on 03/19/16 09:48; Admin Dose 100 MLS/HR; Start 03/18/16 at 00: 00 Famotidine (Pepcid Iv) 20 mg BID IV Last administered on 03/19/16 09:42; Admin Dose 20 MG; Start 03/18/16 at 00:00 Enoxaparin Sodium (Lovenox) 40 mg DAILY SC Last administered on 03/19/16 09: 42; Admin Dose 40 MG; Start 03/18/16 at 09:00 Acetaminophen (Tylenol Tab) 650 mg Q6H PRN PO PAIN AND OR ELEVATED TEMP; Start 03/18/16 at 00:00 Morphine Sulfate (morphine) 2 mg Q4H PRN IV pain Last administered on 17:04; Admin Dose 2 MG; Start 03/18/16 at 00:00 Docusate Sodium 100 mg 100 mg BID PO Last administered on 03/18/16at 20:11; Admin Dose 100 MG; Start 03/18/16 at 00:00 Levofloxacin/ Dextrose (Levaquin 500mg/ D5W 100 ml (Pmx)) 100 ml @ 100 mls/hr Q24H IVPB Last administered on 03/19/16at 09:40; Admin Dose 100 MLS/HR; Start 03/19/16 at 09:00 TONY ALEJANDRO MD Mar 19, 2016 10:32
[2016-03-19] MEDS: ASPIRIN (EC) 81 MG TAB PO SCH (12:45)
[2016-03-19] MEDS: DONEPEZIL 5 MG TAB PO SCH (12:45)
[2016-03-19] MEDS: DOCUSATE SODIUM 100 MG CAP PO SCH ×2 (12:46→20:57)
[2016-03-19] MEDS: NEBIVOLOL 5 MG TAB PO SCH (12:46)
[2016-03-19 13:13] VITALS: BP 146/81; PULSE 66; RESP 20
[2016-03-19 14:04] LABS: POTASSIUM 3.3 mmol/L (3.5-5.1)
[2016-03-19 14:06] LABS: CREATININE 0.56 mg/dl (0.44-1.00)
[2016-03-19 14:07] LABS: BASOPHILS % 0.3 % (0.0-2.0); CALCIUM 8.3 mg/dl (8.4-10.2); EOSINOPHILS % 0.4 % (0.0-7.0); HEMATOCRIT 37.2 % (37.0-47.0); HEMOGLOBIN 12.4 g/dl (12.0-16.0); LYMPHOCYTES # 1.7 10^3/ul (0.8-2.9); LYMPHOCYTES % 42.1 % (15.0-51.0); MEAN CORPUSCULAR HEMOGLOBIN 29.8 pg (29.0-33.0); MEAN CORPUSCULAR HGB CONC 33.5 g/dl (32.0-37.0); MEAN PLATELET VOLUME 6.6 fl (7.4-10.4); MONOCYTE # 0.6 10^3/ul (0.3-0.9); MONOCYTES % 14.2 % (0.0-11.0); NEUTROPHIL # 1.7 10^3/ul (1.6-7.5); PLATELET COUNT 194 10^3/UL (140-440); RED BLOOD COUNT 4.17 10^6/ul (4.20-5.40); RED CELL DISTRIBUTION WIDTH 14.8 % (11.5-14.5)
[2016-03-19 14:20] LABS: CONDITION 1; LH ANALYZER COMMENTS 1
[2016-03-19] MEDS: morphine 2 MG INJ IV PRN ×2 (15:23→23:14)
[2016-03-19 20:00] VITALS: BP 105/46; PULSE 58; RESP 24
[2016-03-19] MEDS ORDERED: POTASSIUM CHLORIDE 20 MEQ POWDER FOR ORAL SOLN PO ONE (20:00)
[2016-03-19] MEDS ORDERED: POTASSIUM CHLORIDE 20 MEQ in SOD CHLORIDE 0.9% 100 ML IVPB ONE (20:00)
[2016-03-20] MEDS: DEXTROSE 5%-0.45% NACL 1,000 ML IV SCH ×3 (02:00→16:52)
[2016-03-20] MEDS: morphine 2 MG INJ IV PRN ×3 (05:44→16:48)
[2016-03-20 06:04] LABS: BASOPHILS % 0.4 % (0.0-2.0); EOSINOPHILS # 0.1 10^3/ul (0.0-0.5); EOSINOPHILS % 1.1 % (0.0-7.0); HEMATOCRIT 38.5 % (37.0-47.0); HEMOGLOBIN 13.1 g/dl (12.0-16.0); LYMPHOCYTES # 2.3 10^3/ul (0.8-2.9); LYMPHOCYTES % 46.4 % (15.0-51.0); MEAN CORPUSCULAR HEMOGLOBIN 30.3 pg (29.0-33.0); MEAN CORPUSCULAR VOLUME 89.2 fl (82.0-101.0); MEAN PLATELET VOLUME 6.7 fl (7.4-10.4); MONOCYTE # 0.8 10^3/ul (0.3-0.9); NEUTROPHIL # 1.8 10^3/ul (1.6-7.5); NEUTROPHILS % 36.1 % (39.0-77.0); PLATELET COUNT 178 10^3/UL (140-440); RED BLOOD COUNT 4.32 10^6/ul (4.20-5.40); RED CELL DISTRIBUTION WIDTH 14.8 % (11.5-14.5); UNCORRECTED WBC 4.9 10^3/ul (4.8-10.8); WHITE BLOOD COUNT 4.9 10^3/ul (4.8-10.8)
[2016-03-20 06:05] LABS: POTASSIUM 3.8 mmol/L (3.5-5.1)
[2016-03-20 06:07] LABS: CREATININE 0.51 mg/dl (0.44-1.00)
[2016-03-20 06:08] LABS: CALCIUM 8.7 mg/dl (8.4-10.2)
[2016-03-20 06:28] LABS: CONDITION 1; LH ANALYZER COMMENTS 1
[2016-03-20] MEDS: LEVOFLOXACIN 500MG/D5W (PMX) 100 ML IVPB SCH (08:33)
[2016-03-20] MEDS: FAMOTIDINE 20 MG INJ IV SCH ×2 (08:36→20:04)
[2016-03-20] MEDS: DOCUSATE SODIUM 100 MG CAP PO SCH ×2 (08:38→20:05)
[2016-03-20] MEDS: ASPIRIN (EC) 81 MG TAB PO SCH (08:38)
[2016-03-20] MEDS: NEBIVOLOL 5 MG TAB PO SCH (08:38)
[2016-03-20] MEDS: DONEPEZIL 5 MG TAB PO SCH (08:39)
[2016-03-20] MEDS: ENOXAPARIN 40 MG/0.4 ML SYG SC SCH (08:43)
[2016-03-20 10:30] VITALS: BP 138/68; PULSE 60; RESP 18
--- NOTE | 2016-03-20 10:43 | PN ---
Date/Time of Note Date/Time of Note DATE: 03/20/16 TIME: 10:41 Assessment/Plan VTE Prophylaxis VTE Prophylaxis Intervention: LMWH Lines/Catheters IV Catheter Type (from Nrs): Peripheral IV Urinary Cath still in place: No Assessment/Plan Assessment/Plan 1. Abdominal pain and diarrhea. Suspect secondary to pancreatitis vs gastroenteritis vs abd pain possibly from ?raptured ovarian cyst. - symptom improved, pt already asking to eat. plan is to start clear diet and advance as tolerated. Will consider additional imaging as needed. pain meds PRN. Continue on PPI 2. Reported syncope. Suspect secondary to dehydration from reported diarrhea. Continue IV hydration. - 2D-echo with preserved EF and trops neg x 3 - Cont to monitor closely 3. Suspect mesenteric thrombophlebitis. CT scan of the abdomen with IV contrast is pending. Follow-up. 4. Suspect underlying ruptured hemorrhagic ovarian cyst. [employer]ER consult based on clinical course. 5. 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 checking AFB. Awaiting pulmonary eval 6. History of dementia. Continue Donepezil 7. Essential hypertension. Continue on antihypertensives and adjust as needed Subjective 24 Hr Interval Summary Free Text/Dictation sleepy. no distress. AFB sputum was collected today Exam/Review of Systems Vital Signs Vitals Vital Signs Date Time Temp Pulse Resp B/P Pulse Ox O2 Delivery O2 Flow Rate FiO2 03/20/16 10:30 98.1 60 18 138/68 100 Room Air 03/18/16 02:00 2.0 Intake and Output 03/19/16 03/19/16 03/20/16 15:00 23:00 07:00 Intake Total 900 ml 1900 ml 1440 ml Output Total 1400 ml Balance 900 ml 500 ml 1440 ml Exam Constitutional: other (sleepy, but somehow arousable. not interested in talking ) Head: atraumatic, normocephalic Respiratory: diminished breath sounds Cardiovascular: regular rate and rhythm Gastrointestinal: other (mild grimaces noted on palpation), soft Extremities: normal pulses Results Result Diagram: 03/20/16 0517 03/20/16 0506 Results 24 hrs Laboratory Tests Test 03/19/16 13:35 03/20/16 05:06 03/20/16 05:17 Anion Gap 14 15 Basophils # 0.0 0.0 Basophils % 0.3 0.4 Blood Morphology Comment Blood Urea Nitrogen 8 # 5 L Calcium Level 8.3 L 8.7 Carbon Dioxide Level 25 25 Chloride Level 105 109 Creatinine 0.56 0.51 Eosinophils # 0.0 0.1 Eosinophils % 0.4 1.1 Glucose Level 108 73 Hematocrit 37.2 38.5 Hemoglobin 12.4 13.1 Lipase 394 H Lymphocytes # 1.7 2.3 Lymphocytes % 42.1 46.4 Mean Corpuscular Hemoglobin 29.8 30.3 Mean Corpuscular Hemoglobin Concent 33.5 34.0 Mean Corpuscular Volume 89.0 89.2 Mean Platelet Volume 6.6 L 6.7 L Monocytes # 0.6 0.8 Monocytes % 14.2 H 16.0 H Neutrophils # 1.7 1.8 Neutrophils % 43.0 36.1 L Nucleated Red Blood Cells # 0.0 0.0 Nucleated Red Blood Cells % 0.0 0.0 Platelet Count 194 # 178 Potassium Level 3.3 L 3.8 Red Blood Count 4.17 L 4.32 Red Cell Distribution Width 14.8 H 14.8 H Sodium Level 141 145 H White Blood Count 4.0 L 4.9 # Medications Medications Current Medications Donepezil HCl (Aricept) 5 mg DAILY PO Last administered on 03/20/16at 08:39; Admin Dose 5 MG; Start 03/18/16 at 09:00 Miscellaneous Medication (Bystolic) 5 mg DAILY PO Last administered on 08:38; Admin Dose 5 MG; Start 03/18/16 at 09:00 Tramadol HCl (Ultram) 50 mg BID PRN PO pain Last administered on 03/18/16at 20: 11; Admin Dose 50 MG; Start 03/17/16 at 23:30 Aspirin (Halfprin) 81 mg DAILY PO Last administered on 03/20/16 08:38; Admin Dose 81 MG; Start 03/18/16 at 09:00 Ondansetron HCl 4 mg 4 mg Q6H PRN IV NAUSEA AND/OR VOMITING; Start 03/18/16 at 00:00 Dextrose/Sodium Chloride (D5-1/2ns) 1,000 ml @ 100 mls/hr Q10H IV Last administered on 03/20/16at 05:48; Admin Dose 100 MLS/HR; Start 03/18/16 at 00: 00 Famotidine (Pepcid Iv) 20 mg BID IV Last administered on 03/20/16 08:36; Admin Dose 20 MG; Start 03/18/16 at 00:00 Enoxaparin Sodium (Lovenox) 40 mg DAILY SC Last administered on 03/20/16 08: 43; Admin Dose 40 MG; Start 03/18/16 at 09:00 Acetaminophen (Tylenol Tab) 650 mg Q6H PRN PO PAIN AND OR ELEVATED TEMP; Start 03/18/16 at 00:00 Morphine Sulfate (morphine) 2 mg Q4H PRN IV pain Last administered on 05:44; Admin Dose 2 MG; Start 03/18/16 at 00:00 Docusate Sodium 100 mg 100 mg BID PO Last administered on 03/20/16 08:38; Admin Dose 100 MG; Start 03/18/16 at 00:00 Levofloxacin/ Dextrose (Levaquin 500mg/ D5W 100 ml (Pmx)) 100 ml @ 100 mls/hr Q24H IVPB Last administered on 03/20/16 08:33; Admin Dose 100 MLS/HR; Start 03/19/16 at 09:00 TONY ALEJANDRO MD Mar 20, 2016 10:42
[2016-03-20 15:25] LABS: TB-NIL 0.45 IU/mL
[2016-03-20 20:00] VITALS: BP 166/67; PULSE 57; RESP 18
[2016-03-20] MEDS: hydrALAzine 20 MG INJ IV PRN (20:58)
[2016-03-20] MEDS: ACETAMINOPHEN 325 MG TAB PO PRN (22:44)
[2016-03-21] MEDS: DEXTROSE 5%-0.45% NACL 1,000 ML IV SCH ×3 (04:39→18:00)
[2016-03-21 06:35] LABS: BASOPHILS % 0.7 % (0.0-2.0); EOSINOPHILS % 1.6 % (0.0-7.0); HEMATOCRIT 34.2 % (37.0-47.0); HEMOGLOBIN 12.1 g/dl (12.0-16.0); LYMPHOCYTES # 1.8 10^3/ul (0.8-2.9); LYMPHOCYTES % 66.8 % (15.0-51.0); MEAN CORPUSCULAR HEMOGLOBIN 31.1 pg (29.0-33.0); MEAN CORPUSCULAR HGB CONC 35.3 g/dl (32.0-37.0); MONOCYTE # 0.2 10^3/ul (0.3-0.9); MONOCYTES % 7.2 % (0.0-11.0); NEUTROPHIL # 0.6 10^3/ul (1.6-7.5); NEUTROPHILS % 23.7 % (39.0-77.0); RED BLOOD COUNT 3.88 10^6/ul (4.20-5.40); RED CELL DISTRIBUTION WIDTH 15.3 % (11.5-14.5); UNCORRECTED WBC 2.7 10^3/ul (4.8-10.8); WHITE BLOOD COUNT 2.7 10^3/ul (4.8-10.8)
[2016-03-21 06:38] LABS: CONDITION 1; MEAN PLATELET VOLUME 9.8 fl (7.4-10.4); PLATELET COUNT 105 10^3/UL (140-440)
[2016-03-21 06:39] LABS: LH ANALYZER COMMENTS 1
[2016-03-21 06:44] LABS: ALBUMIN 2.7 g/dl (3.3-4.9)
[2016-03-21 06:45] LABS: POTASSIUM 4.1 mmol/L (3.5-5.1)
[2016-03-21 06:47] LABS: ALBUMIN/GLOBULIN RATIO 0.9; BILIRUBIN,INDIRECT 0.7 mg/dl (0-1.1); BILIRUBIN,TOTAL 0.7 mg/dl (0.2-1.3); CREATININE 0.46 mg/dl (0.44-1.00); TOTAL PROTEIN 5.7 g/dl (6.1-8.1)
[2016-03-21 06:48] LABS: CALCIUM 8.6 mg/dl (8.4-10.2)
[2016-03-21 07:30] VITALS: BP 168/73; PULSE 66; RESP 18
[2016-03-21] MEDS: FAMOTIDINE 20 MG INJ IV SCH ×2 (09:12→20:32)
[2016-03-21] MEDS: morphine 2 MG INJ IV PRN (09:12)
[2016-03-21] MEDS: DOCUSATE SODIUM 100 MG CAP PO SCH ×2 (09:12→20:32)
[2016-03-21] MEDS: ASPIRIN (EC) 81 MG TAB PO SCH (09:12)
[2016-03-21] MEDS: LEVOFLOXACIN 500MG/D5W (PMX) 100 ML IVPB SCH (09:12)
[2016-03-21] MEDS: DONEPEZIL 5 MG TAB PO SCH (09:13)
[2016-03-21] MEDS: NEBIVOLOL 5 MG TAB PO SCH (09:13)
[2016-03-21] MEDS: ENOXAPARIN 40 MG/0.4 ML SYG SC SCH (09:18)
[2016-03-21 09:41] LABS: ANISOCYTOSIS 1+
[2016-03-21 09:42] LABS: PLATELET ESTIMATE PLT APPEAR DECREASED
--- NOTE | 2016-03-21 11:15 | PN ---
Date/Time of Note Date/Time of Note DATE: 03/21/16 TIME: 11:13 Assessment/Plan VTE Prophylaxis VTE Prophylaxis Intervention: LMWH Lines/Catheters IV Catheter Type (from Nrs): Peripheral IV Urinary Cath still in place: No Assessment/Plan Assessment/Plan 1. Abdominal pain and diarrhea. Suspect secondary to pancreatitis vs gastroenteritis vs abd pain possibly from ?raptured ovarian cyst. - symptom improved, pt already asking to eat. plan is to start clear diet and advance as tolerated. Will consider additional imaging as needed. pain meds PRN. Continue on PPI 2. Reported syncope. Suspect secondary to dehydration from reported diarrhea. Continue IV hydration. - 2D-echo with preserved EF and trops neg x 3 - Cont to monitor closely 3. Suspect mesenteric thrombophlebitis. CT scan of the abdomen with IV contrast is pending. Follow-up. 4. Suspect underlying ruptured hemorrhagic ovarian cyst. 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 5. 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 awaiting AFB sputum results. Quantiferon test was positive. Will place an ID consult. also awaiting pulmonary eval 6. History of dementia. Continue Donepezil 7. Essential hypertension. Continue on antihypertensives and adjust as needed Subjective 24 Hr Interval Summary Free Text/Dictation sleepy. no distress Exam/Review of Systems Vital Signs Vitals Vital Signs Date Time Temp Pulse Resp B/P Pulse Ox O2 Delivery O2 Flow Rate FiO2 03/21/16 07:30 98.4 66 18 168/73 96 Room Air 03/18/16 02:00 2.0 Intake and Output 03/20/16 03/20/16 03/21/16 15:00 23:00 07:00 Intake Total 550 ml 1050 ml Balance 550 ml 1050 ml Exam Constitutional: other (sleepy, but somehow arousable. not interested in talking ) Head: atraumatic, normocephalic Respiratory: diminished breath sounds Cardiovascular: regular rate and rhythm Gastrointestinal: other (mild grimaces noted on palpation), soft Extremities: normal pulses Results Result Diagram: 03/21/16 0503/21/16 0520 Results 24 hrs Laboratory Tests Test 03/21/16 05:20 Alanine Aminotransferase (ALT/SGPT) 26 Albumin 2.7 L Albumin/Globulin Ratio 0.90 Alkaline Phosphatase 89 Anion Gap 12 Anisocytosis 1+ Aspartate Amino Transf (AST/SGOT) 49 H Basophils # 0.0 Basophils % 0.7 Blood Morphology Comment Blood Urea Nitrogen 3 L Calcium Level 8.6 Carbon Dioxide Level 25 Chloride Level 110 Creatinine 0.46 Direct Bilirubin 0.00 Eosinophils # 0.0 Eosinophils % 1.6 Globulin 3.00 Glucose Level 88 Hematocrit 34.2 L Hemoglobin 12.1 Indirect Bilirubin 0.7 Lymphocytes # 1.8 Lymphocytes % 66.8 H Mean Corpuscular Hemoglobin 31.1 Mean Corpuscular Hemoglobin Concent 35.3 Mean Corpuscular Volume 88.0 Mean Platelet Volume 9.8 # Monocytes # 0.2 L Monocytes % 7.2 Neutrophils # 0.6 L Neutrophils % 23.7 L Nucleated Red Blood Cells # 0.0 Nucleated Red Blood Cells % 0.0 Platelet Count 105 #L Platelet Estimate PLT APPEAR DECREASED Potassium Level 4.1 Red Blood Count 3.88 L Red Cell Distribution Width 15.3 H Sodium Level 143 Total Bilirubin 0.7 Total Protein 5.7 L White Blood Count 2.7 #L Medications Medications Current Medications Donepezil HCl (Aricept) 5 mg DAILY PO Last administered on 03/21/16 09:13; Admin Dose 5 MG; Start 03/18/16 at 09:00 Miscellaneous Medication (Bystolic) 5 mg DAILY PO Last administered on 09:13; Admin Dose 5 MG; Start 03/18/16 at 09:00 Tramadol HCl (Ultram) 50 mg BID PRN PO pain Last administered on 03/18/16 20: 11; Admin Dose 50 MG; Start 03/17/16 at 23:30 Aspirin (Halfprin) 81 mg DAILY PO Last administered on 03/21/16 09:12; Admin Dose 81 MG; Start 03/18/16 at 09:00 Ondansetron HCl 4 mg 4 mg Q6H PRN IV NAUSEA AND/OR VOMITING; Start 03/18/16 at 00:00 Dextrose/Sodium Chloride (D5-1/2ns) 1,000 ml @ 100 mls/hr Q10H IV Last administered on 03/21/16 04:39; Admin Dose 100 MLS/HR; Start 03/18/16 at 00: 00 Famotidine (Pepcid Iv) 20 mg BID IV Last administered on 03/21/16 09:12; Admin Dose 20 MG; Start 03/18/16 at 00:00 Enoxaparin Sodium (Lovenox) 40 mg DAILY SC Last administered on 03/21/16 09: 18; Admin Dose 40 MG; Start 03/18/16 at 09:00 Acetaminophen (Tylenol Tab) 650 mg Q6H PRN PO PAIN AND OR ELEVATED TEMP Last administered on 03/20/16 22:44; Admin Dose 650 MG; Start 03/18/16 at 00:00 Morphine Sulfate (morphine) 2 mg Q4H PRN IV pain Last administered on 09:12; Admin Dose 2 MG; Start 03/18/16 at 00:00 Docusate Sodium 100 mg 100 mg BID PO Last administered on 03/21/16 09:12; Admin Dose 100 MG; Start 03/18/16 at 00:00 Levofloxacin/ Dextrose (Levaquin 500mg/ D5W 100 ml (Pmx)) 100 ml @ 100 mls/hr Q24H IVPB Last administered on 03/21/16 09:12; Admin Dose 100 MLS/HR; Start 03/19/16 at 09:00 Hydralazine HCl (Apresoline) 10 mg Q6H PRN IV ELEVATED BLOOD PRESSURE Last administered on 03/20/16 20:58; Admin Dose 10 MG; Start 03/20/16 at 21:00 TONY ALEJANDRO MD Mar 21, 2016 11:15
[2016-03-21] MEDS: hydrALAzine 20 MG INJ IV PRN (14:16)
--- NOTE | 2016-03-21 17:00 | CONS ---
DATE OF ADMISSION: 03/19/2016 DATE OF CONSULTATION: 03/21/2016 TYPE OF CONSULTATION: Infectious disease. REASON FOR CONSULTATION: Antibiotic management. HISTORY OF PRESENT ILLNESS: Eva Meyers is a 75-year-old female who comes in with inte rmittent abdominal pain and associated diarrhea. The patient has had epigastric abdominal pain, wor se over the last 3 days. The pain has been intermittent over the last 9 months. It tends to resolve on its own. This episode was also associated with intractable diarrhea 4 or 5 times a day. She has had to wear a diaper because it has gotten so bad. She also has some shortness of breath without ch est discomfort. She almost had a collapse, probably secondary to dehydration. She came to the [facility] room. She has no fever or chest pain. There is no nausea or vomiting. She denies contact wi th sick individuals. In the ER her CT scan of the abdomen and pelvis was read by radiology to show multiple findings, which include a probable ruptured hemorrhagic ovarian cyst, atypical pneumonia, a nd probable mesenteric thrombophlebitis. The pain is, however, more distinctly located in the epiga stric region, radiating to the right upper quadrant. She is status post cholecystectomy. There is no evidence of gallstones on the CT scan of the abdomen. Her past problems include COPD. 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 She had an tiffany endectomy and a cholecystectomy, as noted. FAMILY HISTORY: Positive for high blood pressure, diabetes, dementia and cardiac disease. SOCIAL HISTORY: She is a chronic smoker. She smokes about a half pack of cigarettes a day. She bhandari s smoked for many years, up to 35 years. She denies alcohol or illicit drugs. LABORATORY DATA: On admission on the her white count was 6.1, H and H of 14.4 and 41.9, platel et count 221,000. Her white count has gone down to 4.0 and then 4.9, and then 2.7 today, with plate lets appearing to be decreased as well, 105,000 platelets. BUN and creatinine are 3/0.46. Urine, 1 + leukocyte esterase, 1+ hemoglobin. Her urine showed mixed gram-positive organisms. Stool culture s show coliform. Clostridium difficile assay was negative. She had a sputum for AFB. She actually had 2 done, which are negative. The CT scan of the abdomen and pelvis showed bilateral lower lobe infectious inflammatory bronchiolitis, mild pulmonary emphysema, status post right breast lumpectomy . A 4.4 cm low density collection is seen in the surgical bed, most likely postoperative seroma. Her liver demonstrated surface nodularity, positive for cirrhosis. Portosystemic shunt is identified, consistent with portal hypertension. Gallbladder is absent. Aortoiliac atherosclerosis is present . Mild inflammatory stranding and edema are seen. Uterus demonstrates a 3-cm fibroid. No pelvic f luid is seen. PHYSICAL EXAMINATION: GENERAL: The patient is an elderly 75-year-old female, who is lethargic but arousable, in no acute distress. VITAL SIGNS: Stable. She is afebrile. SKIN: Without generalized rash. HEENT: Within normal limits. There is some scleral conjunctival pallor, but no scleral icterus. M outh is without pharyngeal exudates or injection. NECK: Supple. LYMPH NODES: None palpable. CHEST: Decreased breath sounds at the bases. HEART: Without murmur or gallop. ABDOMEN: Soft, nontender, without organosplenomegaly or masses. EXTREMITIES: Without cyanosis, clubbing, or edema. RECTAL AND GENITAL EXAM: Deferred. NEUROLOGIC EVALUATION: No focal neurological abnormalities. IMPRESSION AND PLAN: The patient comes in with epigastric abdominal pain and diarrhea, which could be secondary to pancreatitis; however, her lipase is elevated at 373, amylase is 104, so the lipase is somewhat elevated. She does not have C. difficile. In her hospital course her abdominal pain co ntinues to improve. It could be secondary to pancreatitis, gastroenteritis or a possibly ruptured o varian cyst. A 2D echo was done, with a normal ejection fraction. She has bilateral lower lobe infe ctious inflammatory bronchiolitis and patchy reticular nodular interstitial densities, suspect for M ycobacterium avium complex. QuantiFERON test was positive, which goes for her a past history of con tact with [employer]. Will complete the AFB. Will continue her on Levaquin, which was started on the . Will continue to observe for leukopenia and thrombocytopenia. She may need a hematology/oncology consult. She may also need treatment for an atypical Mycobacterium. I will dictate my findings to felipa ramos hospitalist. Thank you for asking us to see this vaughn lady in consultation. Dictated By: JASMYNE NAILS MD, JD/MAYKEL Conf#: [id number] DID#: [id number]
[2016-03-21 17:07] VITALS: BP 130/75; PULSE 73; RESP 16
--- NOTE | 2016-03-21 18:34 | CONS ---
DATE OF ADMISSION: 03/19/2016 DATE OF CONSULTATION: 03/21/2016 REASON FOR CONSULTATION: Abnormal chest CT. HISTORY OF PRESENT ILLNESS: This is a 75-year-old lady, with multiple medical problems, admitted to the hospital for abdominal pain, diarrhea, mild nausea and vomiting. Denied any shortness of breat h or palpitations. Had a subsequent CT abdomen and chest, which demonstrated significant abnormalit ies in the right apex, consistent with bronchiectasis, possible prior Mycobacterium avium disease. QuantiFERON Gold was positive. The patient denies any prior history of TB; unclear of TB exposure. Denies any hemoptysis. SOCIAL HISTORY: Nonsmoker, no alcohol, no history of drug use. PAST MEDICAL HISTORY: A history of breast cancer with partial mastectomy, dementia, hypertension, h yperlipidemia, history of tobacco use. 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 Patient to continue with sputum studies, bronchodilators, deep veno us thrombosis/gastrointestinal prophylaxis. Given radiographic changes, I think that it is unlikely that this is active Mycobacterium tuberculosis. Dictated By: MAXIM LEDBETTER/MAYKEL Conf#: [id number] DID#: [id number]
[2016-03-21 20:00] VITALS: BP 119/56; PULSE 68; RESP 18
[2016-03-22] MEDS: DEXTROSE 5%-0.45% NACL 1,000 ML IV SCH ×2 (04:00→05:34)
[2016-03-22 08:01] VITALS: BP 170/76; RESP 20
[2016-03-22] MEDS: ENOXAPARIN 40 MG/0.4 ML SYG SC SCH (10:53)
[2016-03-22] MEDS: DONEPEZIL 5 MG TAB PO SCH (10:54)
[2016-03-22] MEDS: FAMOTIDINE 20 MG INJ IV SCH (10:54)
[2016-03-22] MEDS: LEVOFLOXACIN 500MG/D5W (PMX) 100 ML IVPB SCH (10:54)
[2016-03-22 10:55] LABS: BASOPHILS % 0.5 % (0.0-2.0); EOSINOPHILS # 0.1 10^3/ul (0.0-0.5); EOSINOPHILS % 1.3 % (0.0-7.0); HEMATOCRIT 40.4 % (37.0-47.0); HEMOGLOBIN 13.4 g/dl (12.0-16.0); LYMPHOCYTES # 1.7 10^3/ul (0.8-2.9); LYMPHOCYTES % 31.2 % (15.0-51.0); MEAN CORPUSCULAR HEMOGLOBIN 29.8 pg (29.0-33.0); MEAN CORPUSCULAR HGB CONC 33.2 g/dl (32.0-37.0); MEAN CORPUSCULAR VOLUME 89.6 fl (82.0-101.0); MEAN PLATELET VOLUME 6.6 fl (7.4-10.4); MONOCYTE # 0.7 10^3/ul (0.3-0.9); MONOCYTES % 12.3 % (0.0-11.0); NEUTROPHILS % 54.7 % (39.0-77.0); PLATELET COUNT 275 10^3/UL (140-440); RED BLOOD COUNT 4.51 10^6/ul (4.20-5.40); RED CELL DISTRIBUTION WIDTH 15.2 % (11.5-14.5); UNCORRECTED WBC 5.4 10^3/ul (4.8-10.8); WHITE BLOOD COUNT 5.4 10^3/ul (4.8-10.8)
[2016-03-22] MEDS: ASPIRIN (EC) 81 MG TAB PO SCH (10:55)
[2016-03-22] MEDS: NEBIVOLOL 5 MG TAB PO SCH (10:55)
[2016-03-22] MEDS: DOCUSATE SODIUM 100 MG CAP PO SCH ×2 (10:55→21:03)
[2016-03-22 10:59] LABS: CONDITION 1; LH ANALYZER COMMENTS 1
[2016-03-22] MEDS: morphine 2 MG INJ IV PRN (10:59)
[2016-03-22 11:18] LABS: POTASSIUM 3.3 mmol/L (3.5-5.1)
[2016-03-22 11:20] LABS: ALBUMIN/GLOBULIN RATIO 0.9; BILIRUBIN,INDIRECT 0.8 mg/dl (0-1.1); BILIRUBIN,TOTAL 0.8 mg/dl (0.2-1.3); CREATININE 0.5 mg/dl (0.44-1.00); TOTAL PROTEIN 6.3 g/dl (6.1-8.1)
[2016-03-22 11:21] LABS: CALCIUM 9.1 mg/dl (8.4-10.2)
--- NOTE | 2016-03-22 12:55 | PN ---
Date/Time of Note Date/Time of Note DATE: 03/22/16 TIME: 12:47 Assessment/Plan VTE Prophylaxis VTE Prophylaxis Intervention: LMWH Lines/Catheters IV Catheter Type (from Nrs): Peripheral IV Urinary Cath still in place: No Assessment/Plan Chief Complaint/Hosp Course A/P 1) Diarrhea/abd pain; ukn etio; possible colitis/G-E/viral illness/ vs pancreatitis; stable, cont supportive care; may need GI eval 2) COPD/emphysema 3) Atypical Pneumonia/ MAC? ro MTB; +QGold; cont isolation. 4) Tobacco 5) Pre syncope; likely hypovolemia related 6) Vre stool? contaminant?? 7) Htn 8) Cirrhosis? viral eval 9) Leukopenia/ monocytic predominence? 10) Fibroids 11) Abd Lt Lateral Omental Fat vascular structure? GI eval 12) Ho Ca Breast Problems: Subjective 24 Hr Interval Summary Free Text/Dictation S- no further abd pain/ diarrhea. no gi bleed. denies previous dairy issues. no sig dyspnea/ hemoptysis. 2 afb's in lab. wants diet changed. refused pelvic usg. Exam/Review of Systems Vital Signs Vitals Vital Signs Date Time Temp Pulse Resp B/P Pulse Ox O2 Delivery O2 Flow Rate FiO2 03/22/16 08:01 98.6 62 20 170/76 96 03/21/16 20:00 Room Air Intake and Output 03/21/16 03/21/16 03/22/16 15:00 23:00 07:00 Intake Total 100 ml 2120 ml 350 ml Balance 100 ml 2120 ml 350 ml Exam Constitutional: alert Respiratory: clear to auscultation, diminished breath sounds Cardiovascular: regular rate and rhythm Gastrointestinal: non-tender (nd; no r r g; ), soft Extremities: other (no edema) Results Result Diagram: 03/22/16 1040 03/22/16 1042 Results 24 hrs Laboratory Tests Test 03/22/16 10:40 03/22/16 10:42 Basophils # 0.0 Basophils % 0.5 Blood Morphology Comment Eosinophils # 0.1 Eosinophils % 1.3 Hematocrit 40.4 Hemoglobin 13.4 Lymphocytes # 1.7 Lymphocytes % 31.2 Mean Corpuscular Hemoglobin 29.8 Mean Corpuscular Hemoglobin Concent 33.2 Mean Corpuscular Volume 89.6 Mean Platelet Volume 6.6 #L Monocytes # 0.7 Monocytes % 12.3 H Neutrophils # 3.0 Neutrophils % 54.7 Nucleated Red Blood Cells # 0.0 Nucleated Red Blood Cells % 0.0 Platelet Count 275 # Red Blood Count 4.51 Red Cell Distribution Width 15.2 H White Blood Count 5.4 # Alanine Aminotransferase (ALT/SGPT) 32 Albumin 3.0 L Albumin/Globulin Ratio 0.90 Alkaline Phosphatase 110 Anion Gap 12 Aspartate Amino Transf (AST/SGOT) 33 Blood Urea Nitrogen 5 L Calcium Level 9.1 Carbon Dioxide Level 27 Chloride Level 109 Creatinine 0.50 Direct Bilirubin 0.00 Globulin 3.30 H Glucose Level 110 Indirect Bilirubin 0.8 Potassium Level 3.3 L Sodium Level 145 H Total Bilirubin 0.8 Total Protein 6.3 Medications Medications Current Medications Donepezil HCl (Aricept) 5 mg DAILY PO Last administered on 03/22/16 10:54; Admin Dose 5 MG; Start 03/18/16 at 09:00 Miscellaneous Medication (Bystolic) 5 mg DAILY PO Last administered on 10:55; Admin Dose 5 MG; Start 03/18/16 at 09:00 Tramadol HCl (Ultram) 50 mg BID PRN PO pain Last administered on 03/18/16at 20: 11; Admin Dose 50 MG; Start 03/17/16 at 23:30 Aspirin (Halfprin) 81 mg DAILY PO Last administered on 03/22/16 10:55; Admin Dose 81 MG; Start 03/18/16 at 09:00 Ondansetron HCl 4 mg 4 mg Q6H PRN IV NAUSEA AND/OR VOMITING; Start 03/18/16 at 00:00 Dextrose/Sodium Chloride (D5-1/2ns) 1,000 ml @ 100 mls/hr Q10H IV Last administered on 03/22/16 05:34; Admin Dose 100 MLS/HR; Start 03/18/16 at 00:00 Famotidine (Pepcid Iv) 20 mg BID IV Last administered on 03/22/16 10:54; Admin Dose 20 MG; Start 03/18/16 at 00:00 Enoxaparin Sodium (Lovenox) 40 mg DAILY SC Last administered on 03/22/16 10:53 ; Admin Dose 40 MG; Start 12/28/16 at 09:00 Acetaminophen (Tylenol Tab) 650 mg Q6H PRN PO PAIN AND OR ELEVATED TEMP Last administered on 03/20/16at 22:44; Admin Dose 650 MG; Start 03/18/16 at 00:00 Morphine Sulfate (morphine) 2 mg Q4H PRN IV pain Last administered on 03/22/16 10:59; Admin Dose 2 MG; Start 03/18/16 at 00:00 Docusate Sodium 100 mg 100 mg BID PO Last administered on 03/22/16 10:55; Admin Dose 100 MG; Start 03/18/16 at 00:00 Levofloxacin/ Dextrose (Levaquin 500mg/ D5W 100 ml (Pmx)) 100 ml @ 100 mls/hr Q24H IVPB Last administered on 03/22/16 10:54; Admin Dose 100 MLS/HR; Start at 09:00 Hydralazine HCl (Apresoline) 10 mg Q6H PRN IV ELEVATED BLOOD PRESSURE Last administered on 03/21/16at 14:16; Admin Dose 10 MG; Start 03/20/16 at 21:00 ODILON VOSS MD Mar 22, 2016 12:54
[2016-03-22] MEDS ORDERED: ALBUTEROL HFA 8 GM INHALER INH PRN (13:00)
[2016-03-22] MEDS: POTASSIUM CHLORIDE 20 MEQ POWDER FOR ORAL SOLN PO SCH (14:50)
[2016-03-22 14:54] VITALS: BP 163/70; PULSE 64; RESP 18
--- NOTE | 2016-03-22 17:42 | CONS ---
Date/Time of Note Date/Time of Note DATE: 03/22/16 TIME: 17:42 Assessment/Plan Assessment/Plan Chief Complaint/Hosp Course DUPLICATE NOTE PLACED IN ERROR -- UNABLE TO DELETE PLEASE REFER TO ALTERNATIVE ID PROGRESS NOTE OF SAME DATE Problems: Consultation Date/Type/Reason Admit Date/Time Mar 19, 2016 at 11:28 Initial Consult Date Exam/Review of Systems Vital Signs Vitals Vital Signs Date Time Temp Pulse Resp B/P Pulse Ox O2 Delivery O2 Flow Rate FiO2 03/22/16 14:54 64 18 163/70 95 Room Air 03/22/16 08:01 98.6 Intake and Output 03/21/16 03/21/16 03/22/16 15:00 23:00 07:00 Intake Total 100 ml 2120 ml 350 ml Balance 100 ml 2120 ml 350 ml Results Result Diagram: 03/22/16 1040 03/22/16 1042 Results 24 hrs Laboratory Tests Test 03/22/16 10:40 03/22/16 10:42 Basophils # 0.0 Basophils % 0.5 Blood Morphology Comment Eosinophils # 0.1 Eosinophils % 1.3 Hematocrit 40.4 Hemoglobin 13.4 Lymphocytes # 1.7 Lymphocytes % 31.2 Mean Corpuscular Hemoglobin 29.8 Mean Corpuscular Hemoglobin Concent 33.2 Mean Corpuscular Volume 89.6 Mean Platelet Volume 6.6 #L Monocytes # 0.7 Monocytes % 12.3 H Neutrophils # 3.0 Neutrophils % 54.7 Nucleated Red Blood Cells # 0.0 Nucleated Red Blood Cells % 0.0 Platelet Count 275 # Red Blood Count 4.51 Red Cell Distribution Width 15.2 H White Blood Count 5.4 # Alanine Aminotransferase (ALT/SGPT) 32 Albumin 3.0 L Albumin/Globulin Ratio 0.90 Alkaline Phosphatase 110 Anion Gap 12 Aspartate Amino Transf (AST/SGOT) 33 Blood Urea Nitrogen 5 L Calcium Level 9.1 Carbon Dioxide Level 27 Chloride Level 109 Creatinine 0.50 Direct Bilirubin 0.00 Globulin 3.30 H Glucose Level 110 Indirect Bilirubin 0.8 Potassium Level 3.3 L Sodium Level 145 H Total Bilirubin 0.8 Total Protein 6.3 Medications Medications Current Medications Donepezil HCl (Aricept) 5 mg DAILY PO Last administered on 03/22/16t 10:54; Admin Dose 5 MG; Start 03/18/16 at 09:00 Miscellaneous Medication (Bystolic) 5 mg DAILY PO Last administered on 10:55; Admin Dose 5 MG; Start 03/18/16 at 09:00 Tramadol HCl (Ultram) 50 mg BID PRN PO pain Last administered on 03/18/16at 20: 11; Admin Dose 50 MG; Start 03/17/16 at 23:30 Aspirin (Halfprin) 81 mg DAILY PO Last administered on 03/22/16 10:55; Admin Dose 81 MG; Start 03/18/16 at 09:00 Ondansetron HCl 4 mg 4 mg Q6H PRN IV NAUSEA AND/OR VOMITING; Start 03/18/16 at 00:00 Dextrose/Sodium Chloride (D5-1/2ns) 1,000 ml @ 50 mls/hr Q20H IV Last administered on 03/22/16 05:34; Admin Dose 100 MLS/HR; Start 03/18/16 at 00:00 ; Stop 03/22/16 at 23:00 Enoxaparin Sodium (Lovenox) 40 mg DAILY SC Last administered on 03/22/16 10:53 ; Admin Dose 40 MG; Start 03/18/16 at 09:00 Acetaminophen (Tylenol Tab) 650 mg Q6H PRN PO PAIN AND OR ELEVATED TEMP Last administered on 03/20/16at 22:44; Admin Dose 650 MG; Start 03/18/16 at 00:00 Morphine Sulfate (morphine) 2 mg Q4H PRN IV pain Last administered on 03/22/16 10:59; Admin Dose 2 MG; Start 03/18/16 at 00:00 Docusate Sodium (Colace) 100 mg BID PO Last administered on 03/22/16 10:55; Admin Dose 100 MG; Start 03/18/16 at 00:00 Hydralazine HCl (Apresoline) 10 mg Q6H PRN IV ELEVATED BLOOD PRESSURE Last administered on 03/21/16at 14:16; Admin Dose 10 MG; Start 03/20/16 at 21:00 Levofloxacin (Levaquin) 500 mg DAILY@06 PO ; Start 03/23/16 at 06:00 Famotidine (Pepcid) 20 mg DAILY PO ; Start 03/23/16 at 09:00 Lactobacillus Acidoph/Bulgaricus (Floranex) 1 tab BID PO ; Start 03/22/16 at 21: 00 Potassium Chloride (Potassium Chloride Pwd/Soln) 40 meq DAILY PO Last administered on 03/22/16 14:50; Admin Dose 40 MEQ; Start 03/22/16 at 13:30 CASSIA EDMONDSON NP Mar 22, 2016 17:42 at 00:00 Dextrose/Sodium Chloride (D5-1/2ns) 1,000 ml @ 50 mls/hr Q20H IV Last administered on 03/22/16 05:34; Admin Dose 100 MLS/HR; Start 03/18/16 at 00:00 ; Stop 03/22/16 at 23:00 Enoxaparin Sodium (Lovenox) 40 mg DAILY SC Last administered on 03/22/16 10:53 ; Admin Dose 40 MG; Start 03/18/16 at 09:00 Acetaminophen (Tylenol Tab) 650 mg Q6H PRN PO PAIN AND OR ELEVATED TEMP Last administered on 03/20/16at 22:44; Admin Dose 650 MG; Start 03/18/16 at 00:00 Morphine Sulfate (morphine) 2 mg Q4H PRN IV pain Last administered on 03/22/16 10:59; Admin Dose 2 MG; Start 03/18/16 at 00:00 Docusate Sodium (Colace) 100 mg BID PO Last administered on 03/22/16 10:55; Admin Dose 100 MG; Start 03/18/16 at 00:00 Hydralazine HCl (Apresoline) 10 mg Q6H PRN IV ELEVATED BLOOD PRESSURE Last administered on 03/21/16at 14:16; Admin Dose 10 MG; Start 03/20/16 at 21:00 Levofloxacin (Levaquin) 500 mg DAILY@06 PO ; Start 03/23/16 at 06:00 Famotidine (Pepcid) 20 mg DAILY PO ; Start 03/23/16 at 09:00 Lactobacillus Acidoph/Bulgaricus (Floranex) 1 tab BID PO ; Start 03/22/16 at 21: 00 Potassium Chloride (Potassium Chloride Pwd/Soln) 40 meq DAILY PO Last administered on 03/22/16 14:50; Admin Dose 40 MEQ; Start 03/22/16 at 13:30 CASSIA EDMONDSON NP Mar 22, 2016 17:42
--- NOTE | 2016-03-22 18:05 | CONS ---
Date/Time of Note Date/Time of Note DATE: 03/22/16 TIME: 17:39 Assessment/Plan Assessment/Plan Chief Complaint/Hosp Course Assessment and Recommendations: 1) abd pain: ddx include ruptured ovarian cyst, pancreatitis, and possible mesenteric mesenteric thrombophlebitis. Currently has no abdominal pain. 2) Diarrhea: resolving 3) Atypical Pneumonia/ MAC? ro MTB; +QGold; cont isolation. - f/u ID eval 4) Mesenteric thrombophlebitis: usually due to some kind of bowel or [employer] inflammmation/infection, associated with venous thrombosis. Tobacco use is also a risk factor. - hematology consult to see if pt needs hypercoagulable w/u and anti-coagulation - continue abx per ID 5) Pre syncope; likely hypovolemia related 6) Vre stool: management per ID. 7) CT showing nodular liver thus possible cirrhosis. Even if she has cirrhosis, it is well compensated as her liver synthetic function is preserved. - check acute hepatitis panel - check autoimmune serology to screen for autoimmune caused cirrhosis Problems: Consultation Date/Type/Reason Admit Date/Time Mar 19, 2016 at 11:28 Type of Consultation: GI Reason for Consultation diarrhea, possible cirrhosis, abdominal pain Hx of Present Illness 75-year-old female who is admitted with intermittent abdominal pain and associated diarrhea. The patient has had epigastric abdominal pain, worse over the last 3 days. The pain has been intermittent over the last 9 months. It tends to resolve on its own. This episode was also associated with intractable diarrhea 4 or 5 times a day with bowel incontinence that lead patient to wear a diaper. She also has some shortness of breath without chest discomfort. She almost had a collapse, probably secondary to dehydration. She has no fever or chest pain. There is no nausea or vomiting. She denies contact with sick individuals. Hospital w/u with CT scan of the abdomen and pelvis showed a probable ruptured hemorrhagic ovarian cyst, atypical pneumonia, and probable mesenteric thrombophlebitis. She is status post cholecystectomy. There is no evidence of gallstones on the CT scan of the abdomen. At this time, her abdominal pain, diarrhea has resolved. All point ROS administered, pertinent positives and negatives in HPI otherwise negative. 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 Past Surgical History Past Surgical Hx: appendectomy, cholecystectomy, endoscopy, other (partial right mastectomy) Family History Significant Family History: heart disease, diabetes, hypertension, other ( dementia) Social History Alcohol Use: none Smoking Status: Current every day smoker Drug Use: none Exam/Review of Systems Vital Signs Vitals Vital Signs Date Time Temp Pulse Resp B/P Pulse Ox O2 Delivery O2 Flow Rate FiO2 03/22/16 14:54 64 18 163/70 95 Room Air 03/22/16 08:01 98.6 Intake and Output 03/21/16 03/21/16 03/22/16 15:00 23:00 07:00 Intake Total 100 ml 2120 ml 350 ml Balance 100 ml 2120 ml 350 ml Exam Constitutional: alert, oriented, well developed Psych: nl mood/affect, no complaints Head: atraumatic, normocephalic Eyes: EOMI, nl conjunctiva, nl lids ENMT: nl external ears & nose, nl lips & teeth, nl nasal mucosa & septum Neck: non-tender, supple Respiratory: clear to auscultation, normal air movement Cardiovascular: nl pulses, regular rate and rhythm Gastrointestinal: bowel sounds, non-tender, soft Neurological: nl mental status, nl speech, nl strength Results Result Diagram: 03/22/16 1040 03/22/16 1042 Results 24 hrs Laboratory Tests Test 03/22/16 10:40 03/22/16 10:42 Basophils # 0.0 Basophils % 0.5 Blood Morphology Comment Eosinophils # 0.1 Eosinophils % 1.3 Hematocrit 40.4 Hemoglobin 13.4 Lymphocytes # 1.7 Lymphocytes % 31.2 Mean Corpuscular Hemoglobin 29.8 Mean Corpuscular Hemoglobin Concent 33.2 Mean Corpuscular Volume 89.6 Mean Platelet Volume 6.6 #L Monocytes # 0.7 Monocytes % 12.3 H Neutrophils # 3.0 Neutrophils % 54.7 Nucleated Red Blood Cells # 0.0 Nucleated Red Blood Cells % 0.0 Platelet Count 275 # Red Blood Count 4.51 Red Cell Distribution Width 15.2 H White Blood Count 5.4 # Alanine Aminotransferase (ALT/SGPT) 32 Albumin 3.0 L Albumin/Globulin Ratio 0.90 Alkaline Phosphatase 110 Anion Gap 12 Aspartate Amino Transf (AST/SGOT) 33 Blood Urea Nitrogen 5 L Calcium Level 9.1 Carbon Dioxide Level 27 Chloride Level 109 Creatinine 0.50 Direct Bilirubin 0.00 Globulin 3.30 H Glucose Level 110 Indirect Bilirubin 0.8 Potassium Level 3.3 L Sodium Level 145 H Total Bilirubin 0.8 Total Protein 6.3 Medications Medications Current Medications Donepezil HCl (Aricept) 5 mg DAILY PO Last administered on 03/22/16 10:54; Admin Dose 5 MG; Start 03/18/16 at 09:00 Miscellaneous Medication (Bystolic) 5 mg DAILY PO Last administered on 10:55; Admin Dose 5 MG; Start 03/18/16 at 09:00 Tramadol HCl (Ultram) 50 mg BID PRN PO pain Last administered on 03/18/16at 20: 11; Admin Dose 50 MG; Start 03/17/16 at 23:30 Aspirin (Halfprin) 81 mg DAILY PO Last administered on 03/22/16 10:55; Admin Dose 81 MG; Start 03/18/16 at 09:00 Ondansetron HCl 4 mg 4 mg Q6H PRN IV NAUSEA AND/OR VOMITING; Start 03/18/16 at 00:00 Dextrose/Sodium Chloride (D5-1/2ns) 1,000 ml @ 50 mls/hr Q20H IV Last administered on 03/22/16 05:34; Admin Dose 100 MLS/HR; Start 03/18/16 at 00:00 ; Stop 03/22/16 at 23:00 Enoxaparin Sodium (Lovenox) 40 mg DAILY SC Last administered on 03/22/16 10:53 ; Admin Dose 40 MG; Start 03/18/16 at 09:00 Acetaminophen (Tylenol Tab) 650 mg Q6H PRN PO PAIN AND OR ELEVATED TEMP Last administered on 03/20/16at 22:44; Admin Dose 650 MG; Start 03/18/16 at 00:00 Morphine Sulfate (morphine) 2 mg Q4H PRN IV pain Last administered on 03/22/16 10:59; Admin Dose 2 MG; Start 03/18/16 at 00:00 Docusate Sodium (Colace) 100 mg BID PO Last administered on 03/22/16 10:55; Admin Dose 100 MG; Start 03/18/16 at 00:00 Hydralazine HCl (Apresoline) 10 mg Q6H PRN IV ELEVATED BLOOD PRESSURE Last administered on 03/21/16at 14:16; Admin Dose 10 MG; Start 03/20/16 at 21:00 Levofloxacin (Levaquin) 500 mg DAILY@06 PO ; Start 03/23/16 at 06:00 Famotidine (Pepcid) 20 mg DAILY PO ; Start 03/23/16 at 09:00 Lactobacillus Acidoph/Bulgaricus (Floranex) 1 tab BID PO ; Start 03/22/16 at 21: 00 Potassium Chloride (Potassium Chloride Pwd/Soln) 40 meq DAILY PO Last administered on 03/22/16t 14:50; Admin Dose 40 MEQ; Start 03/22/16 at 13:30 HOWARD LEMA MD Mar 22, 2016 17:49
--- NOTE | 2016-03-22 18:32 | CONS ---
Date/Time of Note Date/Time of Note DATE: 03/22/16 TIME: 17:42 Assessment/Plan Assessment/Plan Chief Complaint/Hosp Course ID PROGRESS NOTE TOTAL ABX DAY #6 => Levaquin #4 s/p Azith 03/17 s/p Vanco 24H INTERVAL SUMMARY * Awake, alert, taking Filipino on the phone, without dyspnea with talking, room air * No fevers, VSS, NAD * Chart reviewed PHYSICAL EXAMINATION: GENERAL: 75 yo F, VSS, NAD HEENT: Unremarkable NECK: Supple, trachea midline. CHEST: Rise symmetrical without dyspnea, no wheezing HEART: Pulse RRR ABDOMEN: Soft EXTREMITIES: Warm SKIN:Warm, dry, intact ID ASSESSMENT: 75 yo M w/MMP admit with: 1. Admit 03/17/16 w/SIRS, Tmax 99.+, tachycardia, SOB, diarrhea, ABD pain, + near syncopal episode = multifactorial as per acute conditions below * ?early UTI w/mixed pathogens contaminated urine sample vs early true UTI? 2. GI: Acute recurrent ABD epigastric pain =>?etiology Pancreatitis vs ? Ischemic bowel vs GERD w/?Gastroparesis while on opioids ? * Recurrent Pancreatitis * Lipase elevated 394 * ABD PAD/PVD => Ischemic Bowel? * CT 03/17/16: There is a prominent anterior left mesenteric vessel, with adjacent fat stranding. This may reflect a mesenteric thrombophlebitis. 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 Related to liver disease ? * Hx of Cholecystectomy followed by choledocholithiasis=> s/p 04/16/15 ERCP w/ sphincterectomy and removal of gallstones * Hx of remote appendectomy * Hx of Constipation = opioid pain meds * Diarrhea on admission = resolved: (-)Ova/Para/(-)C.Diff/(+)VRE Stool colonization 3. PULM: Acute infectious vs Inflammatory bronchiolitis on CT: Patchy reticulonodular interstitial densities through the lower lungs, suspicious for atypical infection, possibly Mycobacterium avium complex. * (+)QTF Gold Serology w/AFB sputum (-)smears x2 * (-)Influenza A/B screening * Acute COPD exacerbation on chronic Emphysema/Asthmatic-bronchitis = STABLE 4. [employer]/: Suspect underlying ruptured hemorrhagic ovarian cyst. [employer] consult based on clinical course. * Hx of Cystocele per records = Declined endovaginal US exam on limited Pelvic US Screening * Urine cx w/mixed pathogens = contaminant vs early true UTI ? 5. 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 Hx of CAD, HTN, HLD 7. (+)Tobacco user 8. Leukopenia and thrombocytopenia. 9. History of dementia. Continue Donepezil = suspect chronic microvascular ischemic changes per hx of risk factors CURRENT ABX: Levaquin s/p Azith s/p Vanco IV ID RECOMMENDATIONS/PLAN: Awaiting results of AFB cultures = so far AFB smears x2/3 are (-)for AFB. Await further recs from surgery . Problems: Consultation Date/Type/Reason Admit Date/Time Mar 19, 2016 at 11:28 Exam/Review of Systems Vital Signs Vitals Vital Signs Date Time Temp Pulse Resp B/P Pulse Ox O2 Delivery O2 Flow Rate FiO2 03/22/16 14:54 64 18 163/70 95 Room Air 03/22/16 08:01 98.6 Intake and Output 03/21/16 03/21/16 03/22/16 15:00 23:00 07:00 Intake Total 100 ml 2120 ml 350 ml Balance 100 ml 2120 ml 350 ml Results Result Diagram: 03/22/16 1040 03/22/16 1042 Results 24 hrs Laboratory Tests Test 03/22/16 10:40 03/22/16 10:42 Basophils # 0.0 Basophils % 0.5 Blood Morphology Comment Eosinophils # 0.1 Eosinophils % 1.3 Hematocrit 40.4 Hemoglobin 13.4 Lymphocytes # 1.7 Lymphocytes % 31.2 Mean Corpuscular Hemoglobin 29.8 Mean Corpuscular Hemoglobin Concent 33.2 Mean Corpuscular Volume 89.6 Mean Platelet Volume 6.6 #L Monocytes # 0.7 Monocytes % 12.3 H Neutrophils # 3.0 Neutrophils % 54.7 Nucleated Red Blood Cells # 0.0 Nucleated Red Blood Cells % 0.0 Platelet Count 275 # Red Blood Count 4.51 Red Cell Distribution Width 15.2 H White Blood Count 5.4 # Alanine Aminotransferase (ALT/SGPT) 32 Albumin 3.0 L Albumin/Globulin Ratio 0.90 Alkaline Phosphatase 110 Anion Gap 12 Aspartate Amino Transf (AST/SGOT) 33 Blood Urea Nitrogen 5 L Calcium Level 9.1 Carbon Dioxide Level 27 Chloride Level 109 Creatinine 0.50 Direct Bilirubin 0.00 Globulin 3.30 H Glucose Level 110 Indirect Bilirubin 0.8 Potassium Level 3.3 L Sodium Level 145 H Total Bilirubin 0.8 Total Protein 6.3 Medications Medications Current Medications Donepezil HCl (Aricept) 5 mg DAILY PO Last administered on 03/22/16 10:54; Admin Dose 5 MG; Start 03/18/16 at 09:00 Miscellaneous Medication (Bystolic) 5 mg DAILY PO Last administered on 10:55; Admin Dose 5 MG; Start 03/18/16 at 09:00 Tramadol HCl (Ultram) 50 mg BID PRN PO pain Last administered on 03/18/16at 20: 11; Admin Dose 50 MG; Start 03/17/16 at 23:30 Aspirin (Halfprin) 81 mg DAILY PO Last administered on 03/22/16 10:55; Admin Dose 81 MG; Start 03/18/16 at 09:00 Ondansetron HCl 4 mg 4 mg Q6H PRN IV NAUSEA AND/OR VOMITING; Start 03/18/16 at 00:00 Dextrose/Sodium Chloride (D5-1/2ns) 1,000 ml @ 50 mls/hr Q20H IV Last administered on 03/22/16 05:34; Admin Dose 100 MLS/HR; Start 03/18/16 at 00:00 ; Stop 03/22/16 at 23:00 Enoxaparin Sodium (Lovenox) 40 mg DAILY SC Last administered on 03/22/16 10:53 ; Admin Dose 40 MG; Start 03/18/16 at 09:00 Acetaminophen (Tylenol Tab) 650 mg Q6H PRN PO PAIN AND OR ELEVATED TEMP Last administered on 03/20/16at 22:44; Admin Dose 650 MG; Start 03/18/16 at 00:00 Morphine Sulfate (morphine) 2 mg Q4H PRN IV pain Last administered on 03/22/16 10:59; Admin Dose 2 MG; Start 03/18/16 at 00:00 Docusate Sodium (Colace) 100 mg BID PO Last administered on 03/22/16 10:55; Admin Dose 100 MG; Start 03/18/16 at 00:00 Hydralazine HCl (Apresoline) 10 mg Q6H PRN IV ELEVATED BLOOD PRESSURE Last administered on 03/21/16at 14:16; Admin Dose 10 MG; Start 03/20/16 at 21:00 Levofloxacin (Levaquin) 500 mg DAILY@06 PO ; Start 03/23/16 at 06:00 Famotidine (Pepcid) 20 mg DAILY PO ; Start 03/23/16 at 09:00 Lactobacillus Acidoph/Bulgaricus (Floranex) 1 tab BID PO ; Start 03/22/16 at 21: 00 Potassium Chloride (Potassium Chloride Pwd/Soln) 40 meq DAILY PO Last administered on 03/22/16 14:50; Admin Dose 40 MEQ; Start 03/22/16 at 13:30 CASSIA EDMONDSON NP Mar 22, 2016 18:07
[2016-03-22 19:28] VITALS: BP 140/60; RESP 20
[2016-03-22] MEDS: LACTOBACILLUS CHEW TAB PO SCH (21:03)
[2016-03-23] MEDS: LEVOFLOXACIN 500 MG TAB PO SCH (05:11)
[2016-03-23 07:40] VITALS: BP 143/59; RESP 18
[2016-03-23] MEDS: LACTOBACILLUS CHEW TAB PO SCH ×2 (09:00→20:55)
[2016-03-23] MEDS: ENOXAPARIN 40 MG/0.4 ML SYG SC SCH (09:00)
[2016-03-23] MEDS: DOCUSATE SODIUM 100 MG CAP PO SCH ×2 (09:20→20:55)
[2016-03-23] MEDS: FAMOTIDINE 20 MG TAB PO SCH (09:20)
[2016-03-23] MEDS: ASPIRIN (EC) 81 MG TAB PO SCH (09:21)
[2016-03-23] MEDS: NEBIVOLOL 5 MG TAB PO SCH (09:21)
[2016-03-23] MEDS: DONEPEZIL 5 MG TAB PO SCH (09:21)
[2016-03-23] MEDS: POTASSIUM CHLORIDE 20 MEQ POWDER FOR ORAL SOLN PO SCH (09:22)
[2016-03-23 10:07] LABS: HAAIG REFLEX REFLEX FILED
[2016-03-23 10:12] LABS: BASOPHILS % 0.4 % (0.0-2.0); CONDITION 1; EOSINOPHILS # 0.1 10^3/ul (0.0-0.5); EOSINOPHILS % 2.4 % (0.0-7.0); HEMOGLOBIN 12.8 g/dl (12.0-16.0); LH ANALYZER COMMENTS 1; LYMPHOCYTES # 1.5 10^3/ul (0.8-2.9); LYMPHOCYTES % 24.9 % (15.0-51.0); MEAN CORPUSCULAR HEMOGLOBIN 29.7 pg (29.0-33.0); MEAN CORPUSCULAR HGB CONC 32.9 g/dl (32.0-37.0); MEAN CORPUSCULAR VOLUME 90.2 fl (82.0-101.0); MEAN PLATELET VOLUME 6.6 fl (7.4-10.4); MONOCYTE # 0.9 10^3/ul (0.3-0.9); MONOCYTES % 14.3 % (0.0-11.0); NEUTROPHIL # 3.5 10^3/ul (1.6-7.5); PLATELET COUNT 313 10^3/UL (140-440); RED BLOOD COUNT 4.32 10^6/ul (4.20-5.40); RED CELL DISTRIBUTION WIDTH 14.6 % (11.5-14.5)
[2016-03-23 10:25] LABS: INR 1.08; PT RATIO 1.1
[2016-03-23 10:29] LABS: ALBUMIN 3.1 g/dl (3.3-4.9)
[2016-03-23 10:31] LABS: BILIRUBIN,INDIRECT 0.8 mg/dl (0-1.1); BILIRUBIN,TOTAL 0.8 mg/dl (0.2-1.3); CREATININE 0.55 mg/dl (0.44-1.00)
[2016-03-23 10:32] LABS: ALBUMIN/GLOBULIN RATIO 0.93; CALCIUM 9.4 mg/dl (8.4-10.2); PHOSPHORUS 2.9 mg/dl (2.5-4.9); TOTAL PROTEIN 6.4 g/dl (6.1-8.1)
[2016-03-23 10:33] LABS: MAGNESIUM 1.6 mg/dl (1.7-2.5)
--- NOTE | 2016-03-23 10:37 | CONS ---
Date/Time of Note Date/Time of Note DATE: 03/23/16 TIME: 10:34 Assessment/Plan Assessment/Plan Chief Complaint/Hosp Course Assessment and Recommendations: 1) abd pain: ddx include ruptured ovarian cyst, pancreatitis, and possible mesenteric mesenteric thrombophlebitis. Currently has no abdominal pain. 2) Diarrhea: resolving 3) Atypical Pneumonia/ MAC? ro MTB; +QGold; cont isolation. - f/u ID eval 4) Mesenteric thrombophlebitis: usually due to some kind of bowel or Business Practices Supervisor inflammmation/infection, associated with venous thrombosis. Tobacco use is also a risk factor. - hematology consult to see if pt needs hypercoagulable w/u and anti-coagulation - continue abx per ID which will treat the mesenteric thrombophlebitis if it is caused by intra-abdominal infection from GI or Business Practices Supervisor causes. 5) Pre syncope; likely hypovolemia related 6) Vre stool: management per ID. 7) CT showing nodular liver thus possible cirrhosis. Even if she has cirrhosis, it is well compensated as her liver synthetic function is preserved. - check acute hepatitis panel - check autoimmune serology to screen for autoimmune caused cirrhosis 8) Anemia: occult blood negative Dr. Reyes to resume the care of this patient tomorrow. Problems: Consultation Date/Type/Reason Admit Date/Time Mar 19, 2016 at 11:28 Initial Consult Date Type of Consultation: GI 24 HR Interval Summary Free Text/Dictation no further abd pain/ diarrhea. no gi bleed. Constitutional: improved Exam/Review of Systems Vital Signs Vitals Vital Signs Date Time Temp Pulse Resp B/P Pulse Ox O2 Delivery O2 Flow Rate FiO2 03/23/16 07:40 98.1 68 18 143/59 97 03/22/16 20:00 Room Air Intake and Output 03/22/16 03/22/16 03/23/16 15:00 23:00 07:00 Intake Total 2280 ml 400 ml Balance 2280 ml 400 ml Exam Constitutional: alert, oriented, well developed Psych: nl mood/affect, no complaints Head: atraumatic, normocephalic Eyes: EOMI, nl conjunctiva, nl lids, nl sclera ENMT: mucosa pink and moist, nl external ears & nose, nl lips & teeth, nl nasal mucosa & septum Neck: non-tender, supple Respiratory: clear to auscultation, normal air movement Cardiovascular: nl pulses, regular rate and rhythm Gastrointestinal: bowel sounds, non-tender, soft Results Result Diagram: 03/23/16 0554 03/23/16 0954 Results 24 hrs Laboratory Tests Test 03/22/16 10:40 03/22/16 10:42 03/23/16 05:54 03/23/16 09:54 Basophils # 0.0 0.0 Basophils % 0.5 0.4 Blood Morphology Comment Eosinophils # 0.1 0.1 Eosinophils % 1.3 2.4 Hematocrit 40.4 39.0 Hemoglobin 13.4 12.8 Lymphocytes # 1.7 1.5 Lymphocytes % 31.2 24.9 Mean Corpuscular Hemoglobin 29.8 29.7 Mean Corpuscular Hemoglobin Concent 33.2 32.9 Mean Corpuscular Volume 89.6 90.2 Mean Platelet Volume 6.6 #L 6.6 L Monocytes # 0.7 0.9 Monocytes % 12.3 H 14.3 H Neutrophils # 3.0 3.5 Neutrophils % 54.7 58.0 Nucleated Red Blood Cells # 0.0 0.0 Nucleated Red Blood Cells % 0.0 0.0 Platelet Count 275 # 313 Red Blood Count 4.51 4.32 Red Cell Distribution Width 15.2 H 14.6 H White Blood Count 5.4 # 6.0 Alanine Aminotransferase (ALT/SGPT) 32 25 Albumin 3.0 L 3.1 L Albumin/Globulin Ratio 0.90 0.93 Alkaline Phosphatase 110 93 Anion Gap 12 14 Aspartate Amino Transf (AST/SGOT) 33 30 Blood Urea Nitrogen 5 L 7 Calcium Level 9.1 9.4 Carbon Dioxide Level 27 29 Chloride Level 109 105 Creatinine 0.50 0.55 Direct Bilirubin 0.00 0.00 Globulin 3.30 H 3.30 H Glucose Level 110 111 Indirect Bilirubin 0.8 0.8 Potassium Level 3.3 L 4.0 Sodium Level 145 H 144 Total Bilirubin 0.8 0.8 Total Protein 6.3 6.4 Hepatitis B Core Total Antibody Pending Hepatitis B Surface Antigen Pending Hepatitis C Antibody Pending INR International Normalized Ratio 1.08 Magnesium Level 1.6 L Phosphorus Level 2.9 Prothrombin Time 14.0 Prothrombin Time Ratio 1.1 Thyroid Stimulating Hormone (TSH) Pending Test 03/23/16 09:58 Lipase 184 Medications Medications Current Medications Donepezil HCl (Aricept) 5 mg DAILY PO Last administered on 03/23/16 09:21; Admin Dose 5 MG; Start 03/18/16 at 09:00 Miscellaneous Medication (Bystolic) 5 mg DAILY PO Last administered on 09:21; Admin Dose 5 MG; Start 03/18/16 at 09:00 Tramadol HCl (Ultram) 50 mg BID PRN PO pain Last administered on 03/18/16at 20: 11; Admin Dose 50 MG; Start 03/17/16 at 23:30 Aspirin (Halfprin) 81 mg DAILY PO Last administered on 03/23/16 09:21; Admin Dose 81 MG; Start 03/18/16 at 09:00 Ondansetron HCl (Zofran Inj) 4 mg Q6H PRN IV NAUSEA AND/OR VOMITING; Start at 00:00 Enoxaparin Sodium (Lovenox) 40 mg DAILY SC Last administered on 03/22/16 10:53 ; Admin Dose 40 MG; Start 03/18/16 at 09:00 Acetaminophen (Tylenol Tab) 650 mg Q6H PRN PO PAIN AND OR ELEVATED TEMP Last administered on 03/20/16at 22:44; Admin Dose 650 MG; Start 03/18/16 at 00:00 Morphine Sulfate (morphine) 2 mg Q4H PRN IV pain Last administered on 03/22/16 10:59; Admin Dose 2 MG; Start 03/18/16 at 00:00 Docusate Sodium (Colace) 100 mg BID PO Last administered on 03/23/16 09:20; Admin Dose 100 MG; Start 03/18/16 at 00:00 Hydralazine HCl (Apresoline) 10 mg Q6H PRN IV ELEVATED BLOOD PRESSURE Last administered on 03/21/16at 14:16; Admin Dose 10 MG; Start 03/20/16 at 21:00 Levofloxacin (Levaquin) 500 mg DAILY@06 PO Last administered on 03/23/16 05:11 ; Admin Dose 500 MG; Start 03/23/16 at 06:00 Famotidine (Pepcid) 20 mg DAILY PO Last administered on 03/23/16 09:20; Admin Dose 20 MG; Start 03/23/16 at 09:00 Lactobacillus Acidoph/Bulgaricus (Floranex) 1 tab BID PO Last administered on 21:03; Admin Dose 1 TAB; Start 03/22/16 at 21:00 Potassium Chloride (Potassium Chloride Pwd/Soln) 40 meq DAILY PO Last administered on 03/23/16 09:22; Admin Dose 40 MEQ; Start 03/22/16 at 13:30 HOWARD LEMA MD Mar 23, 2016 10:37
[2016-03-23 11:03] LABS: THYROID STIMULATING HORMONE 1.07 MIU/L (0.465-4.680)
[2016-03-23 12:02] LABS: HEPATITIS B CORE ANTIBODY NEGATIVE (NEGATIVE)
--- NOTE | 2016-03-23 15:45 | RADRPT ---
PROCEDURE: US guidance for PICC line CLINICAL INDICATION: PICC line placement TECHNIQUE: Multiple real-time images were acquired of the patient's arm utilizing a high resolutio n transducer. This was performed by the PICC line nurse for venous access. COMPARISON: None FINDINGS: Ultrasound guidance for PICC line placement. IMPRESSION: Ultrasound guidance for PICC line placement. RPTAT: AA .Mayo Cooper MD, MD Date Time Electronically viewed and signed by .Mayo Cooper MD, on 03/23/2016 15:45 .S/
--- NOTE | 2016-03-23 15:53 | RADRPT ---
PROCEDURE: XR Chest. CLINICAL INDICATION: PICC line placement TECHNIQUE: Single frontal view of the chest was obtained COMPARISON: 03/17/16 FINDINGS: There is a new left-sided PICC line in place with its tip overlying the mid SVC. The heart, mediastinum, and lungs are unchanged. The heart is normal in size . There is a patchy right upper lobe nodularity/infiltrate. The thoracic aorta is calcified. RPTAT: AA IMPRESSION: New PICC line in appropriate position. Patchy right upper lobe nodularity/infiltrate. .Mayo Cooper MD, MD Date Time Electronically viewed and signed by .Mayo Cooper MD, on 03/23/2016 15:53 .S/
--- NOTE | 2016-03-23 16:11 | CONS ---
Date/Time of Note Date/Time of Note DATE: 03/23/16 TIME: 15:44 Assessment/Plan Assessment/Plan Chief Complaint/Hosp Course ID PROGRESS NOTE TOTAL ABX DAY #7 => Levaquin #5 s/p Azith 03/17 s/p Vanco 24H INTERVAL SUMMARY * DDX: ABD Pain = ruptured ovarian cyst, pancreatitis, and possible mesenteric mesenteric thrombophlebitis. * DDX: MTB vs Atyipical mycobacterium w/(+)QTFG serology w/AFB smears (-)x2 * Awake, alert, taking Armenian on the phone, without dyspnea with talking, room air * No fevers, VSS, NAD * Chart reviewed PHYSICAL EXAMINATION: GENERAL: 75 yo F, VSS, NAD HEENT: Unremarkable NECK: Supple, trachea midline. CHEST: Rise symmetrical without dyspnea, no wheezing HEART: Pulse RRR ABDOMEN: Soft EXTREMITIES: Warm SKIN:Warm, dry, intact ID ASSESSMENT: 75 yo M w/MMP admit with: 1. Admit 03/17/16 w/SIRS, Tmax 99.+, tachycardia, SOB, diarrhea, ABD pain, + near syncopal episode = multifactorial as per acute conditions below * ?early UTI w/mixed pathogens contaminated urine sample vs early true UTI? 2. GI: Acute recurrent ABD epigastric pain =>?etiology Pancreatitis vs ? Ischemic bowel vs GERD w/?Gastroparesis while on opioids ? * Recurrent Pancreatitis * Lipase elevated 394 * ABD PAD/PVD => Ischemic Bowel? * CT 03/17/16: There is a prominent anterior left mesenteric vessel, with adjacent fat stranding. This may reflect a mesenteric thrombophlebitis. 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 Related to liver disease ? * Hx of Cholecystectomy followed by choledocholithiasis=> s/p 04/16/15 ERCP w/ sphincterectomy and removal of gallstones * Hx of remote appendectomy * Hx of Constipation = opioid pain meds * Diarrhea on admission = resolved: (-)Ova/Para/(-)C.Diff/(+)VRE Stool colonization 3. PULM: Acute infectious vs Inflammatory bronchiolitis on CT: Patchy reticulonodular interstitial densities through the lower lungs, suspicious for atypical infection, possibly Mycobacterium avium complex. * (+)QTF Gold Serology w/AFB sputum (-)smears x2 * (-)Influenza A/B screening * Acute COPD exacerbation on chronic Emphysema/Asthmatic-bronchitis = STABLE 4. BANK VAULT CLERK/: Suspect underlying ruptured hemorrhagic ovarian cyst. BANK VAULT CLERK consult based on clinical course. * Hx of Cystocele per records = Declined endovaginal US exam on limited Pelvic US Screening * Urine cx w/mixed pathogens = contaminant vs early true UTI ? 5. 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 Hx of CAD, HTN, HLD 7. (+)Tobacco user 8. Leukopenia and thrombocytopenia. 9. History of dementia. Continue Donepezil = suspect chronic microvascular ischemic changes per hx of risk factors CURRENT ABX: Levaquin s/p Azith s/p Vanco IV ID RECOMMENDATIONS/PLAN: Awaiting results of AFB cultures = so far AFB smears x2/3 are (-)for AFB. * Suspect Atypical NTB strains (+)QTFG DDX: M. Kasasii and M. Marinum, M. Riyadhense, M. Szulgai which will results in (+)QTFG w/expected SLOW GROWTH NTB. LITERATURE REVIEW https://www.ncbi.nlm.nih.gov/pmc/articles/ZWS9739040/ PLoS One. 2014; 9(4): t44343. Published online 2013Jun 23. doi: 10.1371/journal.pone.3012454 PMCID: [id number] Non-Tuberculous Mycobacteria and the Performance of Interferon Gamma Release Assays in [place] The RD1 is present in mycobacteria belonging to the M. tuberculosis complex ( M.tuberculosis, M. africanum, M. bovis, M. canettii, M. caprae, M. microti, M. pinnipedii, M. mungi and M. orygis) [23] and very few NTM species also share the RD1 of MTB (M. gastri, M. kansasii, M. marinum, M. riyadhense and M. szulgai ) [13], [24], [25]. Infection with these strains can potentially result in a positive QFT-result [13]. In the vaccine strain M. bovis BCG and in the majority of NTMs, the RD1 is absent. Thus, in BCG-vaccinated and the vast majority of individuals infected with NTM, the QFT should be negative. Problems: Consultation Date/Type/Reason Admit Date/Time Mar 19, 2016 at 11:28 Type of Consultation: ID Exam/Review of Systems Vital Signs Vitals Vital Signs Date Time Temp Pulse Resp B/P Pulse Ox O2 Delivery O2 Flow Rate FiO2 03/23/16 07:40 98.1 68 18 143/59 97 03/22/16 20:00 Room Air Intake and Output 03/22/16 03/22/16 03/23/16 15:00 23:00 07:00 Intake Total 2280 ml 400 ml Balance 2280 ml 400 ml Results Result Diagram: 03/23/16 0554 03/23/16 0954 Results 24 hrs Laboratory Tests Test 03/23/16 05:54 03/23/16 09:54 03/23/16 09:58 Basophils # 0.0 Basophils % 0.4 Blood Morphology Comment Eosinophils # 0.1 Eosinophils % 2.4 Hematocrit 39.0 Hemoglobin 12.8 Lymphocytes # 1.5 Lymphocytes % 24.9 Mean Corpuscular Hemoglobin 29.7 Mean Corpuscular Hemoglobin Concent 32.9 Mean Corpuscular Volume 90.2 Mean Platelet Volume 6.6 L Monocytes # 0.9 Monocytes % 14.3 H Neutrophils # 3.5 Neutrophils % 58.0 Nucleated Red Blood Cells # 0.0 Nucleated Red Blood Cells % 0.0 Platelet Count 313 Red Blood Count 4.32 Red Cell Distribution Width 14.6 H White Blood Count 6.0 Alanine Aminotransferase (ALT/SGPT) 25 Albumin 3.1 L Albumin/Globulin Ratio 0.93 Alkaline Phosphatase 93 Anion Gap 14 Aspartate Amino Transf (AST/SGOT) 30 Blood Urea Nitrogen 7 Calcium Level 9.4 Carbon Dioxide Level 29 Chloride Level 105 Creatinine 0.55 Direct Bilirubin 0.00 Free Thyroxine 1.70 Globulin 3.30 H Glucose Level 111 Hepatitis B Core Total Antibody NEGATIVE Hepatitis B Surface Antigen NEGATIVE Hepatitis C Antibody REACTIVE H INR International Normalized Ratio 1.08 Indirect Bilirubin 0.8 Magnesium Level 1.6 L Phosphorus Level 2.9 Potassium Level 4.0 Prothrombin Time 14.0 Prothrombin Time Ratio 1.1 Sodium Level 144 Thyroid Stimulating Hormone (TSH) 1.070 Total Bilirubin 0.8 Total Protein 6.4 Hemoglobin A1c 5.0 Lipase 184 Medications Medications Current Medications Donepezil HCl (Aricept) 5 mg DAILY PO Last administered on 03/23/16 09:21; Admin Dose 5 MG; Start 03/18/16 at 09:00 Miscellaneous Medication (Bystolic) 5 mg DAILY PO Last administered on 09:21; Admin Dose 5 MG; Start 03/18/16 at 09:00 Tramadol HCl (Ultram) 50 mg BID PRN PO pain Last administered on 03/18/16at 20: 11; Admin Dose 50 MG; Start 03/17/16 at 23:30 Aspirin (Halfprin) 81 mg DAILY PO Last administered on 03/23/16 09:21; Admin Dose 81 MG; Start 03/18/16 at 09:00 Ondansetron HCl (Zofran Inj) 4 mg Q6H PRN IV NAUSEA AND/OR VOMITING; Start at 00:00 Enoxaparin Sodium (Lovenox) 40 mg DAILY SC Last administered on 03/22/16 10:53 ; Admin Dose 40 MG; Start 03/18/16 at 09:00 Acetaminophen (Tylenol Tab) 650 mg Q6H PRN PO PAIN AND OR ELEVATED TEMP Last administered on 03/20/16at 22:44; Admin Dose 650 MG; Start 03/18/16 at 00:00 Morphine Sulfate (morphine) 2 mg Q4H PRN IV pain Last administered on 03/22/16 10:59; Admin Dose 2 MG; Start 03/18/16 at 00:00 Docusate Sodium (Colace) 100 mg BID PO Last administered on 03/23/16 09:20; Admin Dose 100 MG; Start 03/18/16 at 00:00 Hydralazine HCl (Apresoline) 10 mg Q6H PRN IV ELEVATED BLOOD PRESSURE Last administered on 03/21/16at 14:16; Admin Dose 10 MG; Start 03/20/16 at 21:00 Levofloxacin (Levaquin) 500 mg DAILY@06 PO Last administered on 03/23/16 05:11 ; Admin Dose 500 MG; Start 03/23/16 at 06:00 Famotidine (Pepcid) 20 mg DAILY PO Last administered on 03/23/16 09:20; Admin Dose 20 MG; Start 03/23/16 at 09:00 Lactobacillus Acidoph/Bulgaricus (Floranex) 1 tab BID PO Last administered on 21:03; Admin Dose 1 TAB; Start 03/22/16 at 21:00 Potassium Chloride (Potassium Chloride Pwd/Soln) 40 meq DAILY PO Last administered on 03/23/16 09:22; Admin Dose 40 MEQ; Start 03/22/16 at 13:30 CASSIA EDMONDSON NP Mar 23, 2016 16:11
--- NOTE | 2016-03-23 16:34 | PN ---
Date/Time of Note Date/Time of Note DATE: 03/23/16 TIME: 16:33 Assessment/Plan VTE Prophylaxis VTE Prophylaxis Intervention: LMWH Lines/Catheters IV Catheter Type (from Nrs): Peripheral IV Urinary Cath still in place: No Assessment/Plan Assessment/Plan 1. Abdominal pain and diarrhea. Suspect secondary to pancreatitis vs gastroenteritis vs abd pain possibly from ?raptured ovarian cyst. - symptom improved, pt already asking to eat. plan is to start clear diet and advance as tolerated. Will consider additional imaging as needed. pain meds PRN. Continue on PPI 2. Reported syncope. Suspect secondary to dehydration from reported diarrhea. Continue IV hydration. - 2D-echo with preserved EF and trops neg x 3 - Cont to monitor closely 3. Suspect mesenteric thrombophlebitis. CT scan of the abdomen with IV contrast is pending. Follow-up. 4. Suspect underlying ruptured hemorrhagic ovarian cyst. RADIOLOGIC TECHNOLOGY PROGRAM DIRECTOR consult based on clinical course. 5. 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 awaiting AFB sputum results. Quantiferon test was positive. Will place an ID consult. also awaiting pulmonary eval 6. History of dementia. Continue Donepezil 7. Essential hypertension. Continue on antihypertensives and adjust as needed Subjective 24 Hr Interval Summary Free Text/Dictation no distress Exam/Review of Systems Vital Signs Vitals Vital Signs Date Time Temp Pulse Resp B/P Pulse Ox O2 Delivery O2 Flow Rate FiO2 03/23/16 07:40 98.1 68 18 143/59 97 03/22/16 20:00 Room Air Intake and Output 03/22/16 03/22/16 03/23/16 14:59 22:59 06:59 Intake Total 2280 ml 400 ml Balance 2280 ml 400 ml Exam Constitutional: other (sleepy, but somehow arousable. not interested in talking ) Head: atraumatic, normocephalic Respiratory: diminished breath sounds Cardiovascular: regular rate and rhythm Gastrointestinal: other (mild grimaces noted on palpation), soft Extremities: normal pulses Results Result Diagram: 03/23/16 0554 03/23/16 0954 Results 24 hrs Laboratory Tests Test 03/23/16 05:54 03/23/16 09:54 03/23/16 09:58 Basophils # 0.0 Basophils % 0.4 Blood Morphology Comment Eosinophils # 0.1 Eosinophils % 2.4 Hematocrit 39.0 Hemoglobin 12.8 Lymphocytes # 1.5 Lymphocytes % 24.9 Mean Corpuscular Hemoglobin 29.7 Mean Corpuscular Hemoglobin Concent 32.9 Mean Corpuscular Volume 90.2 Mean Platelet Volume 6.6 L Monocytes # 0.9 Monocytes % 14.3 H Neutrophils # 3.5 Neutrophils % 58.0 Nucleated Red Blood Cells # 0.0 Nucleated Red Blood Cells % 0.0 Platelet Count 313 Red Blood Count 4.32 Red Cell Distribution Width 14.6 H White Blood Count 6.0 Alanine Aminotransferase (ALT/SGPT) 25 Albumin 3.1 L Albumin/Globulin Ratio 0.93 Alkaline Phosphatase 93 Anion Gap 14 Aspartate Amino Transf (AST/SGOT) 30 Blood Urea Nitrogen 7 Calcium Level 9.4 Carbon Dioxide Level 29 Chloride Level 105 Creatinine 0.55 Direct Bilirubin 0.00 Free Thyroxine 1.70 Globulin 3.30 H Glucose Level 111 Hepatitis B Core Total Antibody NEGATIVE Hepatitis B Surface Antigen NEGATIVE Hepatitis C Antibody REACTIVE H INR International Normalized Ratio 1.08 Indirect Bilirubin 0.8 Magnesium Level 1.6 L Phosphorus Level 2.9 Potassium Level 4.0 Prothrombin Time 14.0 Prothrombin Time Ratio 1.1 Sodium Level 144 Thyroid Stimulating Hormone (TSH) 1.070 Total Bilirubin 0.8 Total Protein 6.4 Hemoglobin A1c 5.0 Lipase 184 Medications Medications Current Medications Donepezil HCl (Aricept) 5 mg DAILY PO Last administered on 03/23/16 09:21; Admin Dose 5 MG; Start 03/18/16 at 09:00 Miscellaneous Medication (Bystolic) 5 mg DAILY PO Last administered on 09:21; Admin Dose 5 MG; Start 03/18/16 at 09:00 Tramadol HCl (Ultram) 50 mg BID PRN PO pain Last administered on 03/18/16at 20: 11; Admin Dose 50 MG; Start 03/17/16 at 23:30 Aspirin (Halfprin) 81 mg DAILY PO Last administered on 03/23/16 09:21; Admin Dose 81 MG; Start 03/18/16 at 09:00 Ondansetron HCl (Zofran Inj) 4 mg Q6H PRN IV NAUSEA AND/OR VOMITING; Start at 00:00 Enoxaparin Sodium (Lovenox) 40 mg DAILY SC Last administered on 03/22/16 10:53 ; Admin Dose 40 MG; Start 03/18/16 at 09:00 Acetaminophen (Tylenol Tab) 650 mg Q6H PRN PO PAIN AND OR ELEVATED TEMP Last administered on 03/20/16 22:44; Admin Dose 650 MG; Start 03/18/16 at 00:00 Morphine Sulfate (morphine) 2 mg Q4H PRN IV pain Last administered on 03/22/16 10:59; Admin Dose 2 MG; Start 03/18/16 at 00:00 Docusate Sodium (Colace) 100 mg BID PO Last administered on 03/23/16 09:20; Admin Dose 100 MG; Start 03/18/16 at 00:00 Hydralazine HCl (Apresoline) 10 mg Q6H PRN IV ELEVATED BLOOD PRESSURE Last administered on 03/21/16 14:16; Admin Dose 10 MG; Start 03/20/16 at 21:00 Levofloxacin (Levaquin) 500 mg DAILY@06 PO Last administered on 03/23/16 05:11 ; Admin Dose 500 MG; Start 03/23/16 at 06:00 Famotidine (Pepcid) 20 mg DAILY PO Last administered on 03/23/16 09:20; Admin Dose 20 MG; Start 03/23/16 at 09:00 Lactobacillus Acidoph/Bulgaricus (Floranex) 1 tab BID PO Last administered on 21:03; Admin Dose 1 TAB; Start 03/22/16 at 21:00 Potassium Chloride (Potassium Chloride Pwd/Soln) 40 meq DAILY PO Last administered on 03/23/16 09:22; Admin Dose 40 MEQ; Start 03/22/16 at 13:30 TONY ALEJANDRO MD Mar 23, 2016 16:34
[2016-03-23 20:57] VITALS: BP 138/63; RESP 20
[2016-03-24] MEDS: LEVOFLOXACIN 500 MG TAB PO SCH (05:55)
[2016-03-24 07:58] VITALS: BP 200/75; RESP 16
[2016-03-24] MEDS: ASPIRIN (EC) 81 MG TAB PO SCH (08:11)
[2016-03-24] MEDS: DONEPEZIL 5 MG TAB PO SCH (08:11)
[2016-03-24] MEDS: DOCUSATE SODIUM 100 MG CAP PO SCH ×2 (08:11→20:19)
[2016-03-24] MEDS: ENOXAPARIN 40 MG/0.4 ML SYG SC SCH (08:11)
[2016-03-24] MEDS: LACTOBACILLUS CHEW TAB PO SCH ×2 (08:11→20:19)
[2016-03-24] MEDS: POTASSIUM CHLORIDE 20 MEQ POWDER FOR ORAL SOLN PO SCH (08:11)
[2016-03-24] MEDS: FAMOTIDINE 20 MG TAB PO SCH (08:11)
[2016-03-24] MEDS: ACETAMINOPHEN 325 MG TAB PO PRN (08:11)
[2016-03-24] MEDS: NEBIVOLOL 5 MG TAB PO SCH (08:19)
[2016-03-24 08:20] VITALS: BP 148/77; PULSE 69
--- NOTE | 2016-03-24 12:39 | PN ---
DATE: 03/24/2016 SUBJECTIVE: No changes overnight per report. The patient is awake, looks comfortable, no fevers. No labs this morning. MICROBIOLOGY: Sputum for AFB came back negative x2 sets. ANTIMICROBIALS: Levaquin. PHYSICAL EXAMINATION: GENERAL: Fragile, elderly woman who is awake, in no distress. HEENT: Head atraumatic, normocephalic. Sclerae anicteric. Buccal mucosa dry. NECK: Supple, trachea midline. CHEST: Rise symmetrical. Breath sounds diminished to bases. HEART: S1, S2. ABDOMEN: Soft. Bowel tones present. EXTREMITIES: Without cyanosis. ASSESSMENT: 1. Bronchiectasis infectious versus inflammatory. Rule out Mycobacterium avium disease. So far, sputum for AFB was negative x2 sets. 2. Abdominal pain and diarrhea, questionable gastroenteritis, questionable pancreatitis, gastroente rology on case. 3. History of dementia. 4. Status post syncopal episodes. PLAN: The patient remains hemodynamically stable, awaiting for third AFB smear. Continue present c are, antibiotics. Pulmonary gastroenterology recommendations. Dictated By: ULISSES SANDERS INSPECTING SUPERVISOR for JASMYNE WHITE/MAYKEL Conf#: [id number] DID#: [id number]
--- NOTE | 2016-03-24 17:27 | PN ---
Date/Time of Note Date/Time of Note DATE: 03/24/16 TIME: 17:25 Assessment/Plan VTE Prophylaxis VTE Prophylaxis Intervention: LMWH Lines/Catheters IV Catheter Type (from Nrsg): PICC Line Central line still needed: Yes Urinary Cath still in place: No Assessment/Plan Assessment/Plan 1. Abdominal pain and diarrhea. Suspect secondary to pancreatitis vs gastroenteritis vs abd pain possibly from ?raptured ovarian cyst. - symptom improved, pt already tolerating po. Will consider additional imaging as needed. pain meds PRN. Continue on PPI 2. Reported syncope. Suspect secondary to dehydration from reported diarrhea. Continue IV hydration. - 2D-echo with preserved EF and trops neg x 3 - Cont to monitor closely 3. Suspect mesenteric thrombophlebitis. CT scan of the abdomen with IV contrast is pending. Follow-up. 4. Suspect underlying ruptured hemorrhagic ovarian cyst. LINUX SOLARIS ADMINISTRATOR consult based on clinical course. 5. 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 awaiting third AFB sputum result. Quantiferon test was positive. ID and pulmonary on board. 6. History of dementia. Continue Donepezil 7. Essential hypertension. Continue on antihypertensives and adjust as needed Subjective 24 Hr Interval Summary Free Text/Dictation no acute issue. Exam/Review of Systems Vital Signs Vitals Vital Signs Date Time Temp Pulse Resp B/P Pulse Ox O2 Delivery O2 Flow Rate FiO2 03/24/16 08:20 69 148/77 03/24/16 07:58 98.1 16 96 03/22/16 20:00 Room Air Intake and Output 03/23/16 03/23/16 03/24/16 14:59 22:59 06:59 Intake Total 760 ml 720 ml Balance 760 ml 720 ml Exam Constitutional: other (sleepy, but somehow arousable. not interested in talking ) Head: atraumatic, normocephalic Respiratory: diminished breath sounds Cardiovascular: regular rate and rhythm Gastrointestinal: other (mild grimaces noted on palpation), soft Extremities: normal pulses Results Result Diagram: 03/23/16 0554 03/23/16 0954 Medications Medications Current Medications Donepezil HCl (Aricept) 5 mg DAILY PO Last administered on 03/24/16t 08:11; Admin Dose 5 MG; Start 03/18/16 at 09:00 Miscellaneous Medication (Bystolic) 5 mg DAILY PO Last administered on 08:19; Admin Dose 5 MG; Start 03/18/16 at 09:00 Tramadol HCl (Ultram) 50 mg BID PRN PO pain Last administered on 03/18/16at 20: 11; Admin Dose 50 MG; Start 03/17/16 at 23:30 Aspirin (Halfprin) 81 mg DAILY PO Last administered on 03/24/16 08:11; Admin Dose 81 MG; Start 03/18/16 at 09:00 Ondansetron HCl (Zofran Inj) 4 mg Q6H PRN IV NAUSEA AND/OR VOMITING; Start at 00:00 Enoxaparin Sodium (Lovenox) 40 mg DAILY SC Last administered on 03/24/16 08:11 ; Admin Dose 40 MG; Start 03/18/16 at 09:00 Acetaminophen (Tylenol Tab) 650 mg Q6H PRN PO PAIN AND OR ELEVATED TEMP Last administered on 03/24/16 08:11; Admin Dose 650 MG; Start 03/18/16 at 00:00 Morphine Sulfate (morphine) 2 mg Q4H PRN IV pain Last administered on 03/22/16 10:59; Admin Dose 2 MG; Start 03/18/16 at 00:00 Docusate Sodium (Colace) 100 mg BID PO Last administered on 03/24/16 08:11; Admin Dose 100 MG; Start 03/18/16 at 00:00 Hydralazine HCl (Apresoline) 10 mg Q6H PRN IV ELEVATED BLOOD PRESSURE Last administered on 03/21/16at 14:16; Admin Dose 10 MG; Start 03/20/16 at 21:00 Levofloxacin (Levaquin) 500 mg DAILY@06 PO Last administered on 03/24/16 05:55 ; Admin Dose 500 MG; Start 03/23/16 at 06:00 Famotidine (Pepcid) 20 mg DAILY PO Last administered on 03/24/16 08:11; Admin Dose 20 MG; Start 03/23/16 at 09:00 Lactobacillus Acidoph/Bulgaricus (Floranex) 1 tab BID PO Last administered on 08:11; Admin Dose 1 TAB; Start 03/22/16 at 21:00 Potassium Chloride (Potassium Chloride Pwd/Soln) 40 meq DAILY PO Last administered on 03/24/16t 08:11; Admin Dose 40 MEQ; Start 03/22/16 at 13:30 IV Flush (NS 10 ml) 10 ml PRN PRN IV IV PROTOCOL; Start 03/23/16 at 17:30 TONY ALEJANDRO MD Mar 24, 2016 17:27
--- NOTE | 2016-03-24 18:42 | CONS ---
Date/Time of Note Date/Time of Note DATE: 03/24/16 TIME: 18:38 Assessment/Plan Assessment/Plan Additional Assessment/Plan 1) abd pain: ddx include ruptured ovarian cyst, pancreatitis, and possible mesenteric thrombophlebitis. Currently has no abdominal pain. 2) Diarrhea: resolving 3) Atypical Pneumonia/ MAC? ro MTB; +QGold; cont isolation. - f/u ID eval 4) Mesenteric thrombophlebitis: usually due to some kind of bowel or Merchandise Manager inflammation/infection, associated with venous thrombosis. Tobacco use is also a risk factor. - hematology consult to see if pt needs hypercoagulable w/u and anti-coagulation - continue abx per ID which will treat the mesenteric thrombophlebitis if it is caused by intra-abdominal infection from GI or Merchandise Manager causes. 5) Pre syncope; likely hypovolemia related 6) Vre stool: management per ID. 7) CT showing nodular liver thus possible cirrhosis. Even if she has cirrhosis, it is well compensated as her liver synthetic function is preserved. - check acute hepatitis panel - check autoimmune serology to screen for autoimmune caused cirrhosis 8) Anemia: occult blood negative Consultation Date/Type/Reason Admit Date/Time Mar 19, 2016 at 11:28 Initial Consult Date Type of Consultation: ID 24 HR Interval Summary Free Text/Dictation Will order CT angiogram of abdomen to r/out mesenteric thrombophlebitis Patient denies abdominal pain, nausea/vomiting, and diarrhea AFB in process Exam/Review of Systems Vital Signs Vitals Vital Signs Date Time Temp Pulse Resp B/P Pulse Ox O2 Delivery O2 Flow Rate FiO2 03/24/16 08:20 69 148/77 03/24/16 07:58 98.1 16 96 03/22/16 20:00 Room Air Intake and Output 03/23/16 03/23/16 03/24/16 15:00 23:00 07:00 Intake Total 760 ml 720 ml Balance 760 ml 720 ml Results Result Diagram: 03/23/16 0554 03/23/16 0954 Medications Medications Current Medications Donepezil HCl (Aricept) 5 mg DAILY PO Last administered on 03/24/16 08:11; Admin Dose 5 MG; Start 03/18/16 at 09:00 Miscellaneous Medication (Bystolic) 5 mg DAILY PO Last administered on 08:19; Admin Dose 5 MG; Start 03/18/16 at 09:00 Tramadol HCl (Ultram) 50 mg BID PRN PO pain Last administered on 03/18/16at 20: 11; Admin Dose 50 MG; Start 03/17/16 at 23:30 Aspirin (Halfprin) 81 mg DAILY PO Last administered on 03/24/16 08:11; Admin Dose 81 MG; Start 03/18/16 at 09:00 Ondansetron HCl (Zofran Inj) 4 mg Q6H PRN IV NAUSEA AND/OR VOMITING; Start at 00:00 Enoxaparin Sodium (Lovenox) 40 mg DAILY SC Last administered on 03/24/16 08:11 ; Admin Dose 40 MG; Start 03/18/16 at 09:00 Acetaminophen (Tylenol Tab) 650 mg Q6H PRN PO PAIN AND OR ELEVATED TEMP Last administered on 03/24/16 08:11; Admin Dose 650 MG; Start 03/18/16 at 00:00 Morphine Sulfate (morphine) 2 mg Q4H PRN IV pain Last administered on 03/22/16 10:59; Admin Dose 2 MG; Start 03/18/16 at 00:00 Docusate Sodium (Colace) 100 mg BID PO Last administered on 03/24/16 08:11; Admin Dose 100 MG; Start 03/18/16 at 00:00 Hydralazine HCl (Apresoline) 10 mg Q6H PRN IV ELEVATED BLOOD PRESSURE Last administered on 03/21/16at 14:16; Admin Dose 10 MG; Start 03/20/16 at 21:00 Levofloxacin (Levaquin) 500 mg DAILY@06 PO Last administered on 03/24/16 05:55 ; Admin Dose 500 MG; Start 03/23/16 at 06:00 Famotidine (Pepcid) 20 mg DAILY PO Last administered on 03/24/16 08:11; Admin Dose 20 MG; Start 03/23/16 at 09:00 Lactobacillus Acidoph/Bulgaricus (Floranex) 1 tab BID PO Last administered on 08:11; Admin Dose 1 TAB; Start 03/22/16 at 21:00 Potassium Chloride (Potassium Chloride Pwd/Soln) 40 meq DAILY PO Last administered on 1/3/17at 08:11; Admin Dose 40 MEQ; Start 03/22/16 at 13:30 IV Flush (NS 10 ml) 10 ml PRN PRN IV IV PROTOCOL; Start 03/23/16 at 17:30 JANAY HWANG Mar 24, 2016 18:41
[2016-03-24] MEDS: morphine 2 MG INJ IV PRN (20:19)
[2016-03-24 20:30] VITALS: BP 157/68; PULSE 67; RESP 18
[2016-03-24 20:43] VITALS: BP 157/68; RESP 18
[2016-03-25] MEDS: LEVOFLOXACIN 500 MG TAB PO SCH (05:26)
[2016-03-25 08:15] VITALS: BP 187/72; RESP 18
[2016-03-25] MEDS: ACETAMINOPHEN 325 MG TAB PO PRN (08:47)
[2016-03-25] MEDS: ENOXAPARIN 40 MG/0.4 ML SYG SC SCH (08:48)
[2016-03-25] MEDS: LACTOBACILLUS CHEW TAB PO SCH ×2 (08:48→20:00)
[2016-03-25] MEDS: POTASSIUM CHLORIDE 20 MEQ POWDER FOR ORAL SOLN PO SCH (08:48)
[2016-03-25] MEDS: ASPIRIN (EC) 81 MG TAB PO SCH (08:48)
[2016-03-25] MEDS: FAMOTIDINE 20 MG TAB PO SCH (08:49)
[2016-03-25] MEDS: DONEPEZIL 5 MG TAB PO SCH (08:49)
[2016-03-25] MEDS: NEBIVOLOL 5 MG TAB PO SCH (08:49)
[2016-03-25] MEDS: DOCUSATE SODIUM 100 MG CAP PO SCH ×2 (08:49→20:00)
[2016-03-25 09:11] VITALS: BP 154/66; PULSE 68
--- NOTE | 2016-03-25 12:26 | PN ---
DATE: 03/25/2016 SUBJECTIVE: Patient is awake, looks comfortable, no fevers. Vital signs stable. She is on Levaqui n. PHYSICAL EXAMINATION: GENERAL: Fragile, elderly woman in no distress. HEENT: Head atraumatic, normocephalic. Sclerae anicteric. Buccal mucosa pink. NECK: Supple, trachea midline. CHEST: Rise symmetrical. Breath sounds diminished at the bases. HEART: S1, S2. ABDOMEN: Soft. Bowel tones present. EXTREMITIES: Without cyanosis. ASSESSMENT: 1. Bronchiectasis, infectious versus inflammatory, rule out mycobacterium avium disease, so far AFB smears 2 sets have been negative, awaiting for third one. 2. Resolving abdominal pain with diarrhea. 3. History of dementia. 4. Questionable mesenteric thrombophlebitis pending CT of the abdomen with IV contrast. PLAN: The patient remains stable. Continue present care. Continue on current antibiotics. Await for third AFB smear. Follow GI and pulmonary recommendations. Dictated By: ULISSES SANDERS WHALE TRAINER for JASMYNE WHITE/MAYKEL Conf#: [id number] DID#: [id number]
[2016-03-25 12:54] LABS: ANA SCREEN NEGATIVE (NEGATIVE)
--- NOTE | 2016-03-25 18:59 | CONS ---
Date/Time of Note Date/Time of Note DATE: 03/25/16 TIME: 18:53 Assessment/Plan Assessment/Plan Additional Assessment/Plan 1) abd pain: ddx include ruptured ovarian cyst, pancreatitis, and possible mesenteric thrombophlebitis. Currently has no abdominal pain. 2) Diarrhea: resolving 3) Atypical Pneumonia/ MAC? ro MTB; +QGold; cont isolation. - f/u ID eval 4) Mesenteric thrombophlebitis: usually due to some kind of bowel or Pump Room Operator inflammation/infection, associated with venous thrombosis. Tobacco use is also a risk factor. - hematology consult to see if pt needs hypercoagulable w/u and anti-coagulation - continue abx per ID which will treat the mesenteric thrombophlebitis if it is caused by intra-abdominal infection from GI or Pump Room Operator causes. 5) Pre syncope; likely hypovolemia related 6) Vre stool: management per ID. 7) Hep C pos and CT showing nodular liver thus possible cirrhosis. Even if she has cirrhosis, it is well compensated as her liver synthetic function is preserved. - Hep C positive, awaiting HCV RNA quantitative - check autoimmune serology to screen for autoimmune caused cirrhosis 8) Anemia: occult blood negative Consultation Date/Type/Reason Admit Date/Time Mar 19, 2016 at 11:28 Type of Consultation: Gastroenterology 24 HR Interval Summary Free Text/Dictation Awaiting AFB and HCV viral load results Tolerating diet CT angiogram in process Hemoglobin stable Denies abdominal pain, nausea, vomiting Exam/Review of Systems Vital Signs Vitals Vital Signs Date Time Temp Pulse Resp B/P Pulse Ox O2 Delivery O2 Flow Rate FiO2 03/25/16 09:11 68 154/66 03/25/16 08:15 98.1 18 96 03/24/16 20:30 Room Air Intake and Output 03/24/16 03/24/16 03/25/16 15:00 23:00 07:00 Intake Total 960 ml 500 ml Balance 960 ml 500 ml Exam Constitutional: alert, oriented, well developed Psych: nl mood/affect, no complaints Head: atraumatic, normocephalic Eyes: EOMI, nl conjunctiva, nl lids, nl sclera ENMT: mucosa pink and moist, nl external ears & nose, nl lips & teeth, nl nasal mucosa & septum Neck: non-tender, supple Respiratory: clear to auscultation, normal air movement Cardiovascular: nl pulses, regular rate and rhythm Gastrointestinal: bowel sounds, non-tender, soft Results Result Diagram: 03/23/16 0554 03/23/16 0954 Medications Medications Current Medications Donepezil HCl (Aricept) 5 mg DAILY PO Last administered on 03/25/16 08:49; Admin Dose 5 MG; Start 03/18/16 at 09:00 Miscellaneous Medication (Bystolic) 5 mg DAILY PO Last administered on 08:49; Admin Dose 5 MG; Start 03/18/16 at 09:00 Tramadol HCl (Ultram) 50 mg BID PRN PO pain Last administered on 03/18/16at 20: 11; Admin Dose 50 MG; Start 03/17/16 at 23:30 Aspirin (Halfprin) 81 mg DAILY PO Last administered on 03/25/16 08:48; Admin Dose 81 MG; Start 03/18/16 at 09:00 Ondansetron HCl (Zofran Inj) 4 mg Q6H PRN IV NAUSEA AND/OR VOMITING; Start at 00:00 Enoxaparin Sodium (Lovenox) 40 mg DAILY SC Last administered on 03/25/16 08:48 ; Admin Dose 40 MG; Start 03/18/16 at 09:00 Acetaminophen (Tylenol Tab) 650 mg Q6H PRN PO PAIN AND OR ELEVATED TEMP Last administered on 03/25/16 08:47; Admin Dose 650 MG; Start 03/18/16 at 00:00 Morphine Sulfate (morphine) 2 mg Q4H PRN IV pain Last administered on 03/24/16 20:19; Admin Dose 2 MG; Start 03/18/16 at 00:00 Docusate Sodium (Colace) 100 mg BID PO Last administered on 03/25/16 08:49; Admin Dose 100 MG; Start 03/18/16 at 00:00 Hydralazine HCl (Apresoline) 10 mg Q6H PRN IV ELEVATED BLOOD PRESSURE Last administered on 03/21/16at 14:16; Admin Dose 10 MG; Start 03/20/16 at 21:00 Levofloxacin (Levaquin) 500 mg DAILY@06 PO Last administered on 03/25/16 05:26 ; Admin Dose 500 MG; Start 03/23/16 at 06:00 Famotidine (Pepcid) 20 mg DAILY PO Last administered on 03/25/16 08:49; Admin Dose 20 MG; Start 03/23/16 at 09:00 Lactobacillus Acidoph/Bulgaricus (Floranex) 1 tab BID PO Last administered on 08:48; Admin Dose 1 TAB; Start 03/22/16 at 21:00 Potassium Chloride (Potassium Chloride Pwd/Soln) 40 meq DAILY PO Last administered on 03/25/16 08:48; Admin Dose 40 MEQ; Start 03/22/16 at 13:30 IV Flush (NS 10 ml) 10 ml PRN PRN IV IV PROTOCOL; Start 03/23/16 at 17:30 JANAY HWANG Mar 25, 2016 18:59
--- NOTE | 2016-03-25 19:17 | PN ---
Date/Time of Note Date/Time of Note DATE: 03/25/16 TIME: 19:17 Assessment/Plan VTE Prophylaxis VTE Prophylaxis Intervention: SCD's Lines/Catheters IV Catheter Type (from Nrsg): PICC Line Central line still needed: Yes Urinary Cath still in place: No Assessment/Plan Assessment/Plan 1. Abdominal pain and diarrhea. Suspect secondary to pancreatitis vs gastroenteritis vs abd pain possibly from ?raptured ovarian cyst. - symptom improved, pt already tolerating po. Will consider additional imaging as needed. pain meds PRN. Continue on PPI 2. Reported syncope. Suspect secondary to dehydration from reported diarrhea. Continue IV hydration. - 2D-echo with preserved EF and trops neg x 3 - Cont to monitor closely 3. Suspect mesenteric thrombophlebitis. CT scan of the abdomen with IV contrast is pending. Follow-up. 4. Suspect underlying ruptured hemorrhagic ovarian cyst. [employer] consult based on clinical course. 5. 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 awaiting third AFB sputum result. Quantiferon test was positive. ID and pulmonary on board. 6. History of dementia. Continue Donepezil 7. Essential hypertension. Continue on antihypertensives and adjust as needed Exam/Review of Systems Vital Signs Vitals Vital Signs Date Time Temp Pulse Resp B/P Pulse Ox O2 Delivery O2 Flow Rate FiO2 03/25/16 09:11 68 154/66 03/25/16 08:15 98.1 18 96 03/24/16 20:30 Room Air Intake and Output 03/24/16 03/24/16 03/25/16 15:00 23:00 07:00 Intake Total 960 ml 500 ml Balance 960 ml 500 ml Exam Constitutional: other (sleepy, but somehow arousable. not interested in talking ) Head: atraumatic, normocephalic Respiratory: diminished breath sounds Cardiovascular: regular rate and rhythm Gastrointestinal: other (mild grimaces noted on palpation), soft Extremities: normal pulses Results Result Diagram: 03/23/16 0554 03/23/16 0954 Medications Medications Current Medications Donepezil HCl (Aricept) 5 mg DAILY PO Last administered on 03/25/16t 08:49; Admin Dose 5 MG; Start 03/18/16 at 09:00 Miscellaneous Medication (Bystolic) 5 mg DAILY PO Last administered on 08:49; Admin Dose 5 MG; Start 03/18/16 at 09:00 Tramadol HCl (Ultram) 50 mg BID PRN PO pain Last administered on 03/18/16at 20: 11; Admin Dose 50 MG; Start 03/17/16 at 23:30 Aspirin (Halfprin) 81 mg DAILY PO Last administered on 03/25/16 08:48; Admin Dose 81 MG; Start 03/18/16 at 09:00 Ondansetron HCl (Zofran Inj) 4 mg Q6H PRN IV NAUSEA AND/OR VOMITING; Start at 00:00 Enoxaparin Sodium (Lovenox) 40 mg DAILY SC Last administered on 03/25/16 08:48 ; Admin Dose 40 MG; Start 03/18/16 at 09:00 Acetaminophen (Tylenol Tab) 650 mg Q6H PRN PO PAIN AND OR ELEVATED TEMP Last administered on 03/25/16 08:47; Admin Dose 650 MG; Start 03/18/16 at 00:00 Morphine Sulfate (morphine) 2 mg Q4H PRN IV pain Last administered on 03/24/16 20:19; Admin Dose 2 MG; Start 03/18/16 at 00:00 Docusate Sodium (Colace) 100 mg BID PO Last administered on 03/25/16 08:49; Admin Dose 100 MG; Start 03/18/16 at 00:00 Hydralazine HCl (Apresoline) 10 mg Q6H PRN IV ELEVATED BLOOD PRESSURE Last administered on 03/21/16at 14:16; Admin Dose 10 MG; Start 03/20/16 at 21:00 Levofloxacin (Levaquin) 500 mg DAILY@06 PO Last administered on 03/25/16 05:26 ; Admin Dose 500 MG; Start 03/23/16 at 06:00 Famotidine (Pepcid) 20 mg DAILY PO Last administered on 03/25/16 08:49; Admin Dose 20 MG; Start 03/23/16 at 09:00 Lactobacillus Acidoph/Bulgaricus (Floranex) 1 tab BID PO Last administered on 08:48; Admin Dose 1 TAB; Start 03/22/16 at 21:00 Potassium Chloride (Potassium Chloride Pwd/Soln) 40 meq DAILY PO Last administered on 03/25/16 08:48; Admin Dose 40 MEQ; Start 03/22/16 at 13:30 IV Flush (NS 10 ml) 10 ml PRN PRN IV IV PROTOCOL; Start 03/23/16 at 17:30 TONY ALEJANDRO MD Mar 25, 2016 19:17
[2016-03-25] MEDS: morphine 2 MG INJ IV PRN (20:01)
[2016-03-25 20:13] VITALS: BP 200/76; RESP 18
[2016-03-25 20:17] VITALS: BP 200/76
[2016-03-25] MEDS: hydrALAzine 20 MG INJ IV PRN (20:17)
[2016-03-25 21:00] VITALS: BP 133/63
[2016-03-26] MEDS: LEVOFLOXACIN 500 MG TAB PO SCH (05:19)
[2016-03-26] MEDS: morphine 2 MG INJ IV PRN (05:21)
[2016-03-26] MEDS: hydrALAzine 20 MG INJ IV PRN (06:34)
[2016-03-26 06:39] VITALS: BP 176/72
[2016-03-26 07:47] VITALS: BP 127/56; RESP 21
[2016-03-26] MEDS: POTASSIUM CHLORIDE 20 MEQ POWDER FOR ORAL SOLN PO SCH ×2 (09:00→09:55)
[2016-03-26] MEDS: ENOXAPARIN 40 MG/0.4 ML SYG SC SCH (09:54)
[2016-03-26] MEDS: DONEPEZIL 5 MG TAB PO SCH (09:54)
[2016-03-26] MEDS: DOCUSATE SODIUM 100 MG CAP PO SCH ×2 (09:55→19:56)
[2016-03-26] MEDS: FAMOTIDINE 20 MG TAB PO SCH (09:55)
[2016-03-26] MEDS: ASPIRIN (EC) 81 MG TAB PO SCH (09:55)
[2016-03-26] MEDS: NEBIVOLOL 5 MG TAB PO SCH (09:55)
[2016-03-26] MEDS: LACTOBACILLUS CHEW TAB PO SCH ×2 (09:55→19:56)
[2016-03-26] MEDS ORDERED: SOD CHLORIDE 0.9% 100 ML ONE (10:29)
[2016-03-26] MEDS ORDERED: IODIXANOL LOCM 100 ML BTL ONE (10:29)
[2016-03-26] MEDS ORDERED: IODIXANOL LOCM 50 ML BTL ONE (10:29)
[2016-03-26] MEDS: traMADol 50 MG TAB PO PRN (13:07)
--- NOTE | 2016-03-26 13:18 | PN ---
DATE: 03/26/2016 SUBJECTIVE: No changes overnight. The patient is alert, feels good, looks comfortable. Denies amira n, discomfort. MICROBIOLOGY: Her third AFB smear came back negative. ANTIMICROBIALS: The patient remains on Levaquin. PHYSICAL EXAMINATION: GENERAL: Well-developed, elderly woman who is awake, in no distress. HEENT: Head atraumatic, normocephalic. Sclerae anicteric. Buccal mucosa pink. NECK: Supple, trachea midline. CHEST: Rise symmetrical. Breath sounds clear, diminished to bases. HEART: S1, S2. ABDOMEN: Soft, bowel sounds present. EXTREMITIES: No cyanosis. ASSESSMENT: 1. Bronchiectasis, questionable inflammatory versus infectious. So far, 3 AFB smears have been neg ative. Patient remains on Levaquin. 2. Resolving abdominal pain and diarrhea. 3. Questionable mesenteric thrombophlebitis. PLAN: The patient remains stable. We are going to discontinue her isolation given 3 negative AFB s kristi. Continue her on Levaquin for now. Follow GI and pulmonary recommendations. Dictated By: ULISSES SANDERS OUTBOARD MOTORBOAT OPERATOR for JASMYNE WHITE/MAYKEL Conf#: [id number] DID#: [id number]
--- NOTE | 2016-03-26 16:26 | RADRPT ---
PROCEDURE: CT scan of the abdomen and pelvis with contrast. CT angiogram of the abdomen, and pelvi s. CLINICAL INDICATION: Abdominal and pelvic pain. TECHNIQUE: CT scan of the abdomen, and pelvis with contrast was performed with helical axial secti ons. The patient was scanned during intravenous administration of 110 ml of Visipaque 320. 2-D cor onal reformatted images were obtained from the axial source images. In addition, 3-D post processin g was performed. Total exam DLP is 750.82 mGy-cm. CTDIvol is 49.29 mGy. One or more of the follow ing dose reduction techniques were used: Automated exposure control, adjustment of the mA and/or kV according to patient size, use of iterative reconstruction technique. COMPARISON: None available FINDINGS: The liver is normal in size and attenuation. There is no focal hepatic lesion. The gallbladder is surgically absent with clips noted in the gallbladder bed. The bile ducts are no rmal. The spleen is normal in size. There is no focal splenic lesion. The pancreas is normal with no mass or evidence of pancreatitis. Both adrenals are normal with no enlargement or mass. Both kidneys demonstrate normal contrast enhancement. There is no renal mass or hydronephrosis. There is no retroperitoneal lymphadenopathy or mass. There is no pelvic lymphadenopathy or mass. The bladder and distal ureters are normal. The periappendiceal region is unremarkable with no evidence of appendicitis. The bowel and mesentery are normal. There is no free fluid or free gas. There is a stimulator device with the generator in the left gluteal subcutaneous region and a wire e xtending to the right side of the sacrum. CT angiogram: The abdominal aorta demonstrates atherosclerotic calcification in the wall. The abdominal aorta is otherwise normal with no aneurysm or dissection. The celiac axis, superior mesenteric artery, and inferior mesenteric artery are all well seen and ap pear normal with no stenosis or occlusion. The renal arteries are normal with no stenosis or occlusion. The common iliac arteries, internal iliac arteries, and external iliac arteries are normal. The com mon femoral arteries are normal. IMPRESSION: 1. Status post cholecystectomy. 2. Atherosclerosis. 3. Otherwise normal CT angiogram of the abdomen and pelvis. 4. Electronic stimulator device noted in the sacrum. RPTAT: QQ .Ronaldo Sharpe MD, MD Date Time Electronically viewed and signed by .Ronaldo Sharpe MD, on 03/26/2016 16:26 .R/
[2016-03-26] MEDS ORDERED: hydrOXYzine HCL 25 MG TAB PO PRN (17:00)
--- NOTE | 2016-03-26 17:55 | CONS ---
Date/Time of Note Date/Time of Note DATE: 03/26/16 TIME: 17:55 Assessment/Plan Assessment/Plan Additional Assessment/Plan 1) abd pain: ddx include ruptured ovarian cyst, pancreatitis, and possible mesenteric thrombophlebitis. Currently has no abdominal pain. 2) Diarrhea: Improved 3) Atypical Pneumonia/ MAC? ro MTB; +QGold; cont isolation. - f/u ID eval 4) Mesenteric thrombophlebitis: usually due to some kind of bowel or Rail Manager inflammation/infection, associated with venous thrombosis. Tobacco use is also a risk factor. - hematology consult to see if pt needs hypercoagulable w/u and anti- coagulation. CT angiogram of abdomen negative 5) Pre syncope; likely hypovolemia related 6) Vre stool: management per ID. 7) Hep C pos and CT showing nodular liver thus possible cirrhosis. Even if she has cirrhosis, it is well compensated as her liver synthetic function is preserved. - Hep C positive, awaiting HCV RNA quantitative - check autoimmune serology to screen for autoimmune caused cirrhosis 8) Anemia: occult blood negative Further recommendations depend on clinical course patient stable from GI standpoint Will sign off, available as needed for consultation Patient seen in collaboration with Dr. Reyes Consultation Date/Type/Reason Admit Date/Time Mar 19, 2016 at 11:28 Type of Consultation: Gastroenterology 24 HR Interval Summary Free Text/Dictation Tolerating diet Denies abdominal pain, nausea, CT angiogram of abdomen negative GI sign off Exam/Review of Systems Vital Signs Vitals Vital Signs Date Time Temp Pulse Resp B/P Pulse Ox O2 Delivery O2 Flow Rate FiO2 03/26/16 07:47 98.0 75 21 127/56 94 03/24/16 20:30 Room Air Intake and Output 03/25/16 03/25/16 03/26/16 15:00 23:00 07:00 Intake Total 1200 ml 810 ml Balance 1200 ml 810 ml Exam Constitutional: alert, oriented, well developed Psych: nl mood/affect, no complaints Head: atraumatic, normocephalic Eyes: EOMI, nl conjunctiva, nl lids, nl sclera ENMT: mucosa pink and moist, nl external ears & nose, nl lips & teeth, nl nasal mucosa & septum Neck: non-tender, supple Respiratory: clear to auscultation, normal air movement Cardiovascular: nl pulses, regular rate and rhythm Gastrointestinal: bowel sounds, non-tender, soft Results Result Diagram: 03/23/16 0554 03/23/16 0954 Medications Medications Current Medications Donepezil HCl (Aricept) 5 mg DAILY PO Last administered on 03/26/16 09:54; Admin Dose 5 MG; Start 03/18/16 at 09:00 Miscellaneous Medication (Bystolic) 5 mg DAILY PO Last administered on 09:55; Admin Dose 5 MG; Start 03/18/16 at 09:00 Tramadol HCl (Ultram) 50 mg BID PRN PO pain Last administered on 03/26/16 13:07 ; Admin Dose 50 MG; Start 03/17/16 at 23:30 Aspirin (Halfprin) 81 mg DAILY PO Last administered on 03/26/16 09:55; Admin Dose 81 MG; Start 03/18/16 at 09:00 Ondansetron HCl (Zofran Inj) 4 mg Q6H PRN IV NAUSEA AND/OR VOMITING; Start at 00:00 Enoxaparin Sodium (Lovenox) 40 mg DAILY SC Last administered on 03/26/16 09:54 ; Admin Dose 40 MG; Start 03/18/16 at 09:00 Acetaminophen (Tylenol Tab) 650 mg Q6H PRN PO PAIN AND OR ELEVATED TEMP Last administered on 03/25/16 08:47; Admin Dose 650 MG; Start 03/18/16 at 00:00 Morphine Sulfate (morphine) 2 mg Q4H PRN IV pain Last administered on 03/26/16 05:21; Admin Dose 2 MG; Start 03/18/16 at 00:00 Docusate Sodium (Colace) 100 mg BID PO Last administered on 03/26/16 09:55; Admin Dose 100 MG; Start 03/18/16 at 00:00 Hydralazine HCl (Apresoline) 10 mg Q6H PRN IV ELEVATED BLOOD PRESSURE Last administered on 03/26/16 06:34; Admin Dose 10 MG; Start 03/20/16 at 21:00 Levofloxacin (Levaquin) 500 mg DAILY@06 PO Last administered on 03/26/16 05:19 ; Admin Dose 500 MG; Start 03/23/16 at 06:00 Famotidine (Pepcid) 20 mg DAILY PO Last administered on 03/26/16 09:55; Admin Dose 20 MG; Start 03/23/16 at 09:00 Lactobacillus Acidoph/Bulgaricus (Floranex) 1 tab BID PO Last administered on 09:55; Admin Dose 1 TAB; Start 03/22/16 at 21:00 Potassium Chloride (Potassium Chloride Pwd/Soln) 40 meq DAILY PO Last administered on 03/25/16 08:48; Admin Dose 40 MEQ; Start 03/22/16 at 13:30 IV Flush (NS 10 ml) 10 ml PRN PRN IV IV PROTOCOL; Start 03/23/16 at 17:30 Hydralazine HCl (Apresoline) 10 mg Q8 PO Last administered on 03/26/16 17:04; Admin Dose 10 MG; Start 03/26/16 at 17:15 Hydroxyzine HCl (Atarax) 25 mg Q6H PRN PO ITCHING; Start 03/26/16 at 17:00 JANAY HWANG Mar 26, 2016 17:55
--- NOTE | 2016-03-26 18:37 | PN ---
Date/Time of Note Date/Time of Note DATE: 03/26/16 TIME: 18:35 Assessment/Plan VTE Prophylaxis VTE Prophylaxis Intervention: LMWH Lines/Catheters IV Catheter Type (from Nrsg): PICC Line Central line still needed: Yes Urinary Cath still in place: No Assessment/Plan Assessment/Plan 1. Abdominal pain and diarrhea. Suspect secondary to pancreatitis vs gastroenteritis vs abd pain possibly from ?raptured ovarian cyst. - symptom improved, pt already tolerating po. Will consider additional imaging as needed. pain meds PRN. Continue on PPI 2. Reported syncope. Suspect secondary to dehydration from reported diarrhea. Continue IV hydration. - 2D-echo with preserved EF and trops neg x 3 - Cont to monitor closely 3. Suspect mesenteric thrombophlebitis. CT scan of the abdomen with IV contrast is pending. Follow-up. 4. Suspect underlying ruptured hemorrhagic ovarian cyst. [employer] consult based on clinical course. 5. 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 awaiting third AFB sputum result. Quantiferon test was positive. ID and pulmonary on board. 6. History of dementia. Continue Donepezil 7. Essential hypertension. Continue on antihypertensives and adjust as needed DISP: pending result of third AFB smear Subjective 24 Hr Interval Summary Free Text/Dictation no acute issues Exam/Review of Systems Vital Signs Vitals Vital Signs Date Time Temp Pulse Resp B/P Pulse Ox O2 Delivery O2 Flow Rate FiO2 03/26/16 07:47 98.0 75 21 127/56 94 03/24/16 20:30 Room Air Intake and Output 03/25/16 03/25/16 03/26/16 15:00 23:00 07:00 Intake Total 1200 ml 810 ml Balance 1200 ml 810 ml Results Result Diagram: 03/23/16 0554 03/23/16 0954 Medications Medications Current Medications Donepezil HCl (Aricept) 5 mg DAILY PO Last administered on 03/26/16 09:54; Admin Dose 5 MG; Start 03/18/16 at 09:00 Miscellaneous Medication (Bystolic) 5 mg DAILY PO Last administered on 09:55; Admin Dose 5 MG; Start 03/18/16 at 09:00 Tramadol HCl (Ultram) 50 mg BID PRN PO pain Last administered on 03/26/16 13:07 ; Admin Dose 50 MG; Start 03/17/16 at 23:30 Aspirin (Halfprin) 81 mg DAILY PO Last administered on 03/26/16 09:55; Admin Dose 81 MG; Start 03/18/16 at 09:00 Ondansetron HCl (Zofran Inj) 4 mg Q6H PRN IV NAUSEA AND/OR VOMITING; Start at 00:00 Enoxaparin Sodium (Lovenox) 40 mg DAILY SC Last administered on 03/26/16 09:54 ; Admin Dose 40 MG; Start 03/18/16 at 09:00 Acetaminophen (Tylenol Tab) 650 mg Q6H PRN PO PAIN AND OR ELEVATED TEMP Last administered on 03/25/16 08:47; Admin Dose 650 MG; Start 03/18/16 at 00:00 Morphine Sulfate (morphine) 2 mg Q4H PRN IV pain Last administered on 03/26/16 05:21; Admin Dose 2 MG; Start 03/18/16 at 00:00 Docusate Sodium (Colace) 100 mg BID PO Last administered on 03/26/16 09:55; Admin Dose 100 MG; Start 03/18/16 at 00:00 Hydralazine HCl (Apresoline) 10 mg Q6H PRN IV ELEVATED BLOOD PRESSURE Last administered on 03/26/16 06:34; Admin Dose 10 MG; Start 03/20/16 at 21:00 Levofloxacin (Levaquin) 500 mg DAILY@06 PO Last administered on 03/26/16 05:19 ; Admin Dose 500 MG; Start 03/23/16 at 06:00 Famotidine (Pepcid) 20 mg DAILY PO Last administered on 03/26/16 09:55; Admin Dose 20 MG; Start 03/23/16 at 09:00 Lactobacillus Acidoph/Bulgaricus (Floranex) 1 tab BID PO Last administered on 09:55; Admin Dose 1 TAB; Start 03/22/16 at 21:00 Potassium Chloride (Potassium Chloride Pwd/Soln) 40 meq DAILY PO Last administered on 03/25/16 08:48; Admin Dose 40 MEQ; Start 03/22/16 at 13:30 IV Flush (NS 10 ml) 10 ml PRN PRN IV IV PROTOCOL; Start 03/23/16 at 17:30 Hydralazine HCl (Apresoline) 10 mg Q8 PO Last administered on 03/26/16t 17:04; Admin Dose 10 MG; Start 03/26/16 at 17:15 Hydroxyzine HCl (Atarax) 25 mg Q6H PRN PO ITCHING; Start 03/26/16 at 17:00 TONY ALEJANDRO MD Mar 26, 2016 18:37
[2016-03-26 21:34] VITALS: BP 168/67; RESP 18
[2016-03-27] MEDS: LEVOFLOXACIN 500 MG TAB PO SCH (05:21)
[2016-03-27 06:11] LABS: BASOPHILS % 0.5 % (0.0-2.0); EOSINOPHILS # 0.4 10^3/ul (0.0-0.5); EOSINOPHILS % 4.9 % (0.0-7.0); HEMATOCRIT 35.3 % (37.0-47.0); HEMOGLOBIN 12.2 g/dl (12.0-16.0); LYMPHOCYTES # 1.9 10^3/ul (0.8-2.9); LYMPHOCYTES % 26.4 % (15.0-51.0); MEAN CORPUSCULAR HEMOGLOBIN 30.8 pg (29.0-33.0); MEAN CORPUSCULAR HGB CONC 34.6 g/dl (32.0-37.0); MEAN CORPUSCULAR VOLUME 88.8 fl (82.0-101.0); MEAN PLATELET VOLUME 6.8 fl (7.4-10.4); MONOCYTE # 1.1 10^3/ul (0.3-0.9); MONOCYTES % 15.3 % (0.0-11.0); NEUTROPHIL # 3.9 10^3/ul (1.6-7.5); NEUTROPHILS % 52.9 % (39.0-77.0); PLATELET COUNT 318 10^3/UL (140-440); RED BLOOD COUNT 3.98 10^6/ul (4.20-5.40); RED CELL DISTRIBUTION WIDTH 15.3 % (11.5-14.5); UNCORRECTED WBC 7.3 10^3/ul (4.8-10.8); WHITE BLOOD COUNT 7.3 10^3/ul (4.8-10.8)
[2016-03-27 06:12] LABS: ALBUMIN 2.8 g/dl (3.3-4.9)
[2016-03-27 06:13] LABS: POTASSIUM 3.9 mmol/L (3.5-5.1)
[2016-03-27 06:15] LABS: ALBUMIN/GLOBULIN RATIO 0.84; BILIRUBIN,INDIRECT 0.5 mg/dl (0-1.1); BILIRUBIN,TOTAL 0.5 mg/dl (0.2-1.3); CREATININE 0.56 mg/dl (0.44-1.00); TOTAL PROTEIN 6.1 g/dl (6.1-8.1)
[2016-03-27 06:16] LABS: CALCIUM 9.3 mg/dl (8.4-10.2); CONDITION 1; LH ANALYZER COMMENTS 1
[2016-03-27 07:59] VITALS: BP 144/63; RESP 18
[2016-03-27] MEDS: LACTOBACILLUS CHEW TAB PO SCH (09:13)
[2016-03-27] MEDS: ASPIRIN (EC) 81 MG TAB PO SCH (09:13)
[2016-03-27] MEDS: DOCUSATE SODIUM 100 MG CAP PO SCH (09:13)
[2016-03-27] MEDS: FAMOTIDINE 20 MG TAB PO SCH (09:13)
[2016-03-27] MEDS: POTASSIUM CHLORIDE 20 MEQ POWDER FOR ORAL SOLN PO SCH (09:13)
[2016-03-27] MEDS: NEBIVOLOL 5 MG TAB PO SCH (09:13)
[2016-03-27] MEDS: DONEPEZIL 5 MG TAB PO SCH (09:13)
[2016-03-27] MEDS: ENOXAPARIN 40 MG/0.4 ML SYG SC SCH (09:18)
[2016-03-27] MEDS ORDERED: BECL8.7A INH (11:12)
[2016-03-27] MEDS ORDERED: ASPI-664 PO (11:12)
[2016-03-27] MEDS ORDERED: HYDR-3670 PO (11:12)
[2016-03-27] MEDS ORDERED: ALBU18HF INH (11:12)
--- NOTE | 2016-03-27 11:15 | PDOCDIS ---
Discharge Instructions CONDITION Patient Condition: Stable HOME CARE INSTRUCTIONS: Special Diet: regular ACTIVITY: Activity Restrictions: Slowly Increase Activity FOLLOW UP/APPOINTMENTS Appointments follow-up with primary care doctor REFERRALS Other Referrals Call 911 or go to the nearest ER if you develop fever, chills, shortness of breath, chest pain, diarrhea, abd pain TONY ALEJANDRO MD Mar 27, 2016 11:14
[2016-03-27] MEDS: morphine 2 MG INJ IV PRN (11:29)
[2016-03-27] MEDS ORDERED: ALBUTEROL/IPRATROPIUM (NEB) 3 ML AMP HHN PRN (11:30)
[2016-03-27] MEDS ORDERED: METHYLPREDNISOLONE 125 MG INJ IV ONE (12:00)
--- NOTE | 2016-03-27 13:59 | CONS ---
Date/Time of Note Date/Time of Note DATE: 03/27/16 TIME: 13:58 Consult Date/Type/Reason Admit Date/Time Mar 19, 2016 at 11:28 Initial Consult Date Type of Consultation: ID Subjective alert, feels good, no fevers, nad Objective Vital Signs Date Time Temp Pulse Resp B/P Pulse Ox O2 Delivery O2 Flow Rate FiO2 03/27/16 07:59 97.7 69 18 144/63 97 03/24/16 20:30 Room Air Intake and Output 03/26/16 03/26/16 03/27/16 15:00 23:00 07:00 Intake Total 1000 ml 920 ml Balance 1000 ml 920 ml Results/Medications Result Diagram: 03/27/16 0455 03/27/16 0455 Results 24 hrs Laboratory Tests Test 03/27/16 04:55 Alanine Aminotransferase (ALT/SGPT) 25 Albumin 2.8 L Albumin/Globulin Ratio 0.84 Alkaline Phosphatase 89 Anion Gap 14 Aspartate Amino Transf (AST/SGOT) 25 Basophils # 0.0 Basophils % 0.5 Blood Morphology Comment Blood Urea Nitrogen 18 Calcium Level 9.3 Carbon Dioxide Level 26 Chloride Level 108 Creatinine 0.56 Direct Bilirubin 0.00 Eosinophils # 0.4 Eosinophils % 4.9 Globulin 3.30 H Glucose Level 79 Hematocrit 35.3 L Hemoglobin 12.2 Indirect Bilirubin 0.5 Lymphocytes # 1.9 Lymphocytes % 26.4 Mean Corpuscular Hemoglobin 30.8 Mean Corpuscular Hemoglobin Concent 34.6 Mean Corpuscular Volume 88.8 Mean Platelet Volume 6.8 L Monocytes # 1.1 H Monocytes % 15.3 H Neutrophils # 3.9 Neutrophils % 52.9 Nucleated Red Blood Cells # 0.0 Nucleated Red Blood Cells % 0.0 Platelet Count 318 Potassium Level 3.9 Red Blood Count 3.98 L Red Cell Distribution Width 15.3 H Sodium Level 144 Total Bilirubin 0.5 Total Protein 6.1 White Blood Count 7.3 # Medications Current Medications Donepezil HCl (Aricept) 5 mg DAILY PO Last administered on 03/27/16 09:13; Admin Dose 5 MG; Start 03/18/16 at 09:00 Miscellaneous Medication (Bystolic) 5 mg DAILY PO Last administered on 09:13; Admin Dose 5 MG; Start 03/18/16 at 09:00 Tramadol HCl (Ultram) 50 mg BID PRN PO pain Last administered on 03/26/16 13:07 ; Admin Dose 50 MG; Start 03/17/16 at 23:30 Aspirin (Halfprin) 81 mg DAILY PO Last administered on 03/27/16 09:13; Admin Dose 81 MG; Start 03/18/16 at 09:00 Ondansetron HCl (Zofran Inj) 4 mg Q6H PRN IV NAUSEA AND/OR VOMITING; Start at 00:00 Enoxaparin Sodium (Lovenox) 40 mg DAILY SC Last administered on 03/27/16 09:18 ; Admin Dose 40 MG; Start 03/18/16 at 09:00 Acetaminophen (Tylenol Tab) 650 mg Q6H PRN PO PAIN AND OR ELEVATED TEMP Last administered on 03/25/16 08:47; Admin Dose 650 MG; Start 03/18/16 at 00:00 Morphine Sulfate (morphine) 2 mg Q4H PRN IV pain Last administered on 03/27/16 11:29; Admin Dose 2 MG; Start 03/18/16 at 00:00 Docusate Sodium (Colace) 100 mg BID PO Last administered on 03/27/16 09:13; Admin Dose 100 MG; Start 03/18/16 at 00:00 Hydralazine HCl (Apresoline) 10 mg Q6H PRN IV ELEVATED BLOOD PRESSURE Last administered on 03/26/16 06:34; Admin Dose 10 MG; Start 03/20/16 at 21:00 Levofloxacin (Levaquin) 500 mg DAILY@06 PO Last administered on 03/27/16 05:21 ; Admin Dose 500 MG; Start 03/23/16 at 06:00 Famotidine (Pepcid) 20 mg DAILY PO Last administered on 03/27/16 09:13; Admin Dose 20 MG; Start 03/23/16 at 09:00 Lactobacillus Acidoph/Bulgaricus (Floranex) 1 tab BID PO Last administered on 09:13; Admin Dose 1 TAB; Start 03/22/16 at 21:00 Potassium Chloride (Potassium Chloride Pwd/Soln) 40 meq DAILY PO Last administered on 03/27/16 09:13; Admin Dose 40 MEQ; Start 03/22/16 at 13:30 IV Flush (NS 10 ml) 10 ml PRN PRN IV IV PROTOCOL; Start 03/23/16 at 17:30 Hydralazine HCl (Apresoline) 10 mg Q8 PO Last administered on 03/27/16t 05:21; Admin Dose 10 MG; Start 03/26/16 at 17:15 Hydroxyzine HCl (Atarax) 25 mg Q6H PRN PO ITCHING; Start 03/26/16 at 17:00 Assessment/Plan Chief Complaint/Hosp Course MICROBIOLOGY: Her third AFB smear came back negative. ANTIMICROBIALS: Levaquin #10 PHYSICAL EXAMINATION: GENERAL: Well-developed, elderly woman who is awake, in no distress. HEENT: Head atraumatic, normocephalic. Sclerae anicteric. Buccal mucosa pink. NECK: Supple, trachea midline. CHEST: Rise symmetrical. Breath sounds clear, diminished to bases. HEART: S1, S2. ABDOMEN: Soft, bowel sounds present. EXTREMITIES: No cyanosis. ASSESSMENT: 1. Bronchiectasis, questionable inflammatory versus infectious. So far, 3 AFB smears have been negative. 2. Resolving abdominal pain and diarrhea. 3. Questionable mesenteric thrombophlebitis. PLAN: The patient remains stable. Continue present care, complete abx and follow pulmonary/GI rec-s DW staff/pt Problems: ULISSES SANDERS NP Mar 27, 2016 13:59
--- NOTE | 2016-04-18 06:37 | DS ---
Date/Time of Note Date/Time of Note DATE: 04/18/16 TIME: 06:36 Discharge Summary Admission/Discharge Info Admit Date/Time Mar 19, 2016 at 11:28 Discharge Date/Time Mar 27, 2016 at 16:12 Final Diagnosis 1. Abdominal pain and diarrhea. Suspect secondary to pancreatitis vs gastroenteritis vs abd pain possibly from ?raptured ovarian cyst. - symptom improved, pt already tolerating po. Will consider additional imaging as needed. pain meds PRN. Continue on PPI 2. Reported syncope. Suspect secondary to dehydration from reported diarrhea. Continue IV hydration. - 2D-echo with preserved EF and trops neg x 3 - Cont to monitor closely 3. Suspect mesenteric thrombophlebitis. CT scan of the abdomen with IV contrast is pending. Follow-up. 4. Suspect underlying ruptured hemorrhagic ovarian cyst. STAMPING OPERATOR consult based on clinical course. 5. 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 awaiting third AFB sputum result. Quantiferon test was positive. ID and pulmonary on board. 6. History of dementia. Continue Donepezil 7. Essential hypertension. Continue on antihypertensives and adjust as needed Patient Condition: Stable Hospital Course Ms. Meyers is a 75-year-old female who comes with a myriad of symptoms and it is unclear how everything is connected. Physically, she says that she has been having epigastric abdominal pain that has been worse over the last 3 days. She says she has been having this pain intermittently for the past 9 months and it tends to come on its own and tends to resolve on its own. This episode, however , for the first time is associated with intractable diarrhea that occurs about 4 or 5 times a day. Her reports that sometimes the patient is unable to control her bowel enough to get to the bathroom to where she has to wear a diaper. The patient also has been having some shortness of breath without chest discomfort, but today she had a near collapse episode, which her attributes to dehydration from the diarrhea. At that point, the decision was made to bring her to the emergency room for evaluation. Of note is that there was no fever. There was no chest pain. She denies any headaches. There is no weakness in any extremity or anything that is suggestive of focal deficit. There are no vision changes. There are no earaches. There is no joint pain. She has occasional blood in her stool, but she does not have nausea, she does not have vomiting. She cannot really ascertain if the blood is in the stool or was present after she wiped. However, she denies history of contacts with sick persons and her and herself are the only ones who live at home and her does not have similar symptoms. In the emergency room, CT scan of her abdomen and pelvis was read by radiology to show multiple findings, which include a probability of a ruptured hemorrhagic ovarian cyst, atypical probable pneumonia, and probable mesenteric thrombophlebitis. However, pain is located more in the epigastric region and radiates to her right upper quadrant; however , the patient is status post cholecystectomy and there is no evidence of gallstones on CT of the abdomen. Ultrasound of the upper abdomen was not done. She is being admitted for further workup and better control of her symptoms. Home Meds Active Scripts Beclomethasone Dip* (Qvar 40*) 7.3 Gm Inha, 1 PUFF INH BID, #1 INHALER 1 Refill Prov:TONY ALEJANDRO MD 03/27/16 Hydralazine Hcl* (Hydralazine Hcl*) 10 Mg Tablet, 10 MG PO Q8 for 30 Days, TAB 1 Refill Prov:TONY ALEJANDRO MD 03/27/16 Albuterol Sulfate* (Ventolin HFA*) 18 Gm Hfa.aer.ad, 2 PUFF INH Q4H RESP THERAPY Y for SHORTNESS OF BREATH, #1 1 Refill Prov:TONY ALEJANDRO MD 03/27/16 Aspirin* (Aspirin* EC) 81 Mg Tablet.dr, 81 MG PO DAILY for 30 Days Prov:TONY ALEJANDRO MD 03/27/16 Tramadol HCl (Tramadol HCl) 50 Mg Tablet, 50 MG PO BID, #30 TAB Prov:TONY ALEJANDRO MD 01/19/16 Reported Medications Nebivolol* (Bystolic*) 5 Mg Tab, 5 MG PO DAILY, #30 TAB 01/15/16 Donepezil* (Donepezil*) 5 Mg Tablet, 5 MG PO DAILY, #30 TAB 01/15/16 TONY ALEJANDRO MD Apr 18, 2016 06:37
== END 2016-03-27 16:12 | disposition home health service (06) | DRG 438 ==
LOC: E/R 12:24 → INTOOBSV 20:54 → TEL 20:54 → PP2 03-18 19:05 → OBSVTOIN 03-19 11:28
PROVIDERS: ADMIT Family Medicine; ATTEND Family Medicine
PROC: 02HV33Z Insertion of Infusion Device into Superior Vena Cava, Percutaneous Approach (ICD-10-PCS; principal; 2016-03-23)
DX: K85.90 Acute pancreatitis without necrosis or infection, unspecified (principal); J18.9 Pneumonia, unspecified organism; A04.8 Other specified bacterial intestinal infections; A31.0 Pulmonary mycobacterial infection; F03.90 Unspecified dementia, unspecified severity, without behavioral disturbance, psychotic disturbance, mood disturbance, and anxiety; R65.10 Systemic inflammatory response syndrome (SIRS) of non-infectious origin without acute organ dysfunction; J44.9 Chronic obstructive pulmonary disease, unspecified; E86.0 Dehydration; J21.9 Acute bronchiolitis, unspecified; I80.8 Phlebitis and thrombophlebitis of other sites; D64.9 Anemia, unspecified; K52.9 Noninfective gastroenteritis and colitis, unspecified; I10 Essential (primary) hypertension; Z72.0 Tobacco use; Z85.3 Personal history of malignant neoplasm of breast; N83.209 Unspecified ovarian cyst, unspecified side; Z16.21 Resistance to vancomycin; K74.69 Other cirrhosis of liver; B19.20 Unspecified viral hepatitis C without hepatic coma; R10.13 Epigastric pain
CPT/HCPCS: 36569; 71010; 71260; 74176; 74177; 75635; 76856; 76937; 80048; 80053; 80061; 80076; 81001; 81003; 82150; 82270; 82550; 82553; 83036; 83690; 83735; 84100; 84439; 84443; 84484; 85025; 85610; 85730; 86038; 86255; 86480; 86704; 86709; 86803; 87045; 87075; 87086; 87116; 87177; 87340; 87522; 93005; 93306; 96374; 96375; 96376; 99217; G0378; J0360; J0456; J1650; J1956; J2270; J2405; J2930; J3480; J7030; J7042; Q9967

== ENCOUNTER 2016-09-03 08:15 | Day surgery (SDC) | payer MEDICARE, OTHER ==
[2016-09-02 11:26] VITALS: BMI 31.3
[~2016-09-03] VITALS: Ht 157.5 cm; Wt 73.2 kg
[2016-09-03] VITALS (41 sets, daily range): BP systolic 116–169; BP diastolic 50–85; PULSE 55–74; RESP 16–24; Ht 157.5 cm; Wt 73.2 kg
[~2016-09-03 08:15] MED LIST changes: +ALBU18HF INH; +ASPI-664 PO; +BECL8.7A INH; +HYDR-3670 PO; -PRED20TA PO
[2016-09-03] MEDS ORDERED: CEFAZOLIN 2 GM/50 ML (PMX) 50 ML IVPB ONE (08:30)
[2016-09-03] MEDS ORDERED: SOD CHLORIDE 0.9% 1,000 ML IV SCH (08:30)
[2016-09-03] MEDS ORDERED: MIRA50TA PO (08:56)
[2016-09-03] MEDS ORDERED: NITR-58 PO (08:57)
--- NOTE | 2016-09-03 10:03 | RADRPT ---
PROCEDURE: XR Chest 1 View. CLINICAL INDICATION: Abnormal breath sounds, preop. TECHNIQUE: AP view of the chest was obtained. COMPARISON: March 23, [address] March 18, 2016 FINDINGS: The heart size is within normal limits. Calcified atherosclerosis is noted in the aorta. The lungs are hyperexpanded. Mild interstitial prominence in both lungs appears chronic. No consolidations ar e identified. No pneumothorax is seen. Nodular scarring at the right apex is stable. The osseous st ructures are osteopenic, but appear grossly intact. IMPRESSION: Calcified atherosclerosis in the aorta. Hyperexpanded lungs with chronic mild interstitial prominence in both lungs. Findings could reflect COPD. Stable nodular scarring at the right apex. RPTAT: AA .Ismael Wilson MD, Date Time Electronically viewed and signed by .Ismael Wilson MD, on 09/03/2016 10:02 .P/
[2016-09-03] MEDS ORDERED: FENTAnyl 50 MCG/ML VIAL ONE (10:52)
[2016-09-03] MEDS ORDERED: GLYCOPYRROLATE 0.4 MG INJ ONE (11:10)
[2016-09-03] MEDS ORDERED: ROCURONIUM 50 MG INJ ONE (11:10)
[2016-09-03] MEDS ORDERED: LIDOCAINE 2% (SDV) 5 ML INJ ONE (11:10)
[2016-09-03] MEDS ORDERED: NEOSTIGMINE 3 MG/3 ML SYRINGE ONE (11:10)
[2016-09-03] MEDS ORDERED: CEFAZOLIN 1 GM INJ ONE (11:10)
[2016-09-03] MEDS ORDERED: PROPOFOL 20 ML ONE (11:10)
[2016-09-03] MEDS ORDERED: SUCCINYLCHOLINE CHLORIDE 100 MG/5 ML SYG IV ONE (11:10)
[2016-09-03] MEDS ORDERED: DIPHENHYDRAMINE 50 MG INJ IV PRN (11:30)
[2016-09-03] MEDS ORDERED: MEPERIDINE 25 MG INJ IV PRN (11:30)
[2016-09-03] MEDS ORDERED: ONDANSETRON 4 MG INJ IV PRN ×2 (11:30→13:30)
[2016-09-03] MEDS: FENTAnyl 50 MCG/ML VIAL IV PRN ×4 (12:53→13:29)
[2016-09-03] MEDS: HYDROmorphONE (0.2 MG/ML) 10ML SYG IV PRN ×3 (12:53→13:23)
[2016-09-03] MEDS: D5W-0.45 NACL + KCL 20 MEQ 1,000 ML IV SCH ×2 (13:01→22:17)
[2016-09-03] MEDS ORDERED: ACETAMINOPHEN 1000MG/100ML IV 100 ML IVPB PRN (13:30)
--- NOTE | 2016-09-03 13:33 | OPR ---
DATE OF OPERATION: 09/03/2016 PREOPERATIVE DIAGNOSIS: Ductal carcinoma in situ, right breast. POSTOPERATIVE DIAGNOSES: Ductal carcinoma in situ, right breast. OPERATION PERFORMED: Right modified radical mastectomy with level 1 dissection. ANESTHESIA: General. ANESTHESIOLOGIST: Dr. Mcgee SURGEON: Shayne Victor MD SCHOOL PSYCHOLOGY PROFESSOR: Bernardo Howard MD INDICATIONS FOR PROCEDURE: The patient is a 76-year-old female who underwent mammographic screening and was found to have suspicious microcalcifications. Subsequent excisional biopsy revealed DCIS w ith inadequate margin. She then went for reexcision which revealed an additional 3.5 cm span of DCI S and still with inadequate margins. She was presented at tumor board and the recommendation was fo r mastectomy with a level 1 dissection and she had extensive DCIS and possibility of invasion was th ere. She consented and she was scheduled for surgery. DESCRIPTION OF PROCEDURE: The patient was brought to the operating theater, placed under general en dotracheal tube anesthesia. The right breast and axillary region was prepped and draped in usual st erile fashion. A planned elliptical incision around the nipple areolar complex which also included the previous surgical incisional scar was demarcated with marking pen and carried out with 15 blade scalpel. Subcutaneous tissue was dissected with cautery. [place] skin clamps were then used to elevate the skin edges and skin flaps were created utilizing cautery, first superiorly to the clavi beth, then medially to the sternal border, inferiorly to the inframammary fold and laterally until th e latissimus dorsi muscle was identified throughout its course. Mastectomy then took place from med ial to lateral using cautery. At the border of the pectoralis major muscle, the pectoralis minor mu scle was identified. The clavipectoral fascia was incised with gentle blunt dissection along the ch est wall. The long thoracic nerve was identified and kept out of harm's way. More superiorly, the axillary vein and thoracodorsal neurovascular bundles were identified and kept out of harm's way. A moderate amount of level 1 chau tissue was then resected, taking great care to ensure that at leas t some lymph nodes were removed. Final ____dissection took place with the LigaSure device. Final c onnective tissue attachments to the latissimus dorsi muscle were transected with cautery. Specimen was then oriented and removed and sent for permanent pathologic analysis. Wound was irrigated with warm water and minimal bleeding was controlled with cautery. Two #10 Chinese Amor-Bradshaw drains we re then brought through the right mid axillary line, one was cut to size and laid over the pectorali s major muscle, the other was cut to size and laid within the axilla. Both drains were secured in p lace with 2-0 nylon suture in the standard fashion. The skin was then reapproximated with skin stap les. The patient tolerated the procedure well. The estimated blood loss was 40 mL. There were no complications and the patient was transported in stable condition to the recovery room where circumf erential compression dressing was applied. Dictated By: SHAYNE VICTOR MD TL/MAYKEL Conf#: [id number] DID#: [id number] CC: BERNARDO HOWARD MD;*End*
--- NOTE | 2016-09-03 18:24 | HP ---
DATE OF ADMISSION: 09/03/2016 CHIEF COMPLAINT AND HISTORY OF PRESENT ILLNESS: The patient is a 76-year-old female with history of hypertension and memory impairment who was seen by Dr. Victor as an outpatient for ductal carcinoma in situ, right breast, and was brought in to hospital today. The patient underwent right modified r adical mastectomy. The patient underwent mammographic screening and was found to have a suspicious microcalcification. The patient subsequently underwent excisional biopsy which revealed ductal carc inoma in situ with inadequate margins. The patient underwent reexcision which revealed additional d uctal carcinoma in situ still with inadequate margins. The patient's case was presented at [facility] and was recommended to undergo right modified radical mastectomy. The patient does have postope rative pain and is being admitted for ____. Patient denied any headache. No reported fever or chil ls, no reported recent abdominal pain. No reported vomiting, no reported leg edema. No reported re sting leg pain. No reported focal weakness. No recent fever or chills. The patient denies any cou gh. REVIEW OF SYSTEMS: A total of 10 systems were reviewed and all pertinent positive and negative find ings have been described in the HPI. PAST MEDICAL HISTORY: The patient has history of suspected mesenteric thrombophlebitis and possible ruptured hemorrhagic ovarian cyst. PAST SURGICAL HISTORY: Patient is status post appendectomy and also status post cholecystectomy. ALLERGIES: NONE. FAMILY HISTORY: Positive for high blood pressure, diabetes, dementia and cardiac disease in both pa rents and grandparents. SOCIAL HISTORY: The patient is a chronic smoker, but has cut down now and a smokes half pack a day and has been smoking for approximately 35 years. No history of alcohol abuse. PHYSICAL EXAMINATION: GENERAL: The patient to be conscious, awake, alert, follows simple commands. VITAL SIGNS: Temperature 97.4, pulse 74, respirations 17, last blood pressure 148/67, O2 saturation 100% on 2 liters nasal cannula. HEENT: Atraumatic, normocephalic. Conjunctivae and lids normal. Oropharynx clear. NECK: Supple. No mass, no thyromegaly. CHEST: Fairly clear. CARDIOVASCULAR: S1, S2 normal. No murmur, gallop, or rub. ABDOMEN: Soft, nondistended, nontender. Bowel sounds heard. EXTREMITIES: No leg edema. Pedal pulses palpable. SKIN: Without acute rash. NEUROLOGIC: The patient is awake, alert, follows simple commands, moves all extremities. LABORATORY DATA: Prior to admission: Sodium 140, potassium 3.6, BUN 18, creatinine 0.6, glucose 10 2, AST 22, ALT 12, alkaline phosphatase 72. ____ normal. PTT 24. WBC 6.9, hemoglobin 12.5. PT 10 .4, platelets 255. EKG revealed normal sinus rhythm and no acute ST changes. Chest x-ray did not h ave any active cardiopulmonary disease. IMPRESSION: 1. Ductal carcinoma in situ, right breast, status post right modified radical mastectomy. 2. Hypertension. 3. 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 5. Chronic obstructive pulmonary disease. PLAN: The patient admitted on medical floor. Patient will be started on clear liquid diet, which w ill be advanced as tolerated. The patient will be continued on Aricept for dementia and Bystolic fo r blood pressure and will hold off on aspirin. The patient will continue Qvar inhaler for her COPD . The patient also is on Myrbetriq, possibly for psych condition. The patient will resume her home medication upon discharge. Meanwhile, we will continue Aricept. The patient will be started on IV fluids, IV Tylenol, and IV morphine for pain control, SCDs for DVT prophylaxis. Dictated By: JANELLE MCKINNEY/MAYKEL Conf#: [id number] DID#: [id number]
[2016-09-03] MEDS ORDERED: ALBUTEROL 18 GM INHALER INH PRN (18:30)
[2016-09-03] MEDS: morphine 2 MG INJ IV PRN ×2 (19:43→21:55)
[2016-09-03] MEDS: DONEPEZIL 5 MG TAB PO SCH (22:16)
[2016-09-03] MEDS: NEBIVOLOL 5 MG TAB PO SCH (22:16)
[2016-09-04 02:28] VITALS: BP 155/67; RESP 20
[2016-09-04] MEDS: morphine 2 MG INJ IV PRN ×3 (04:42→08:27)
[2016-09-04] MEDS: D5W-0.45 NACL + KCL 20 MEQ 1,000 ML IV SCH ×3 (05:01→21:01)
[2016-09-04] MEDS: MOMETASONE 0.24 GM INHALER INH SCH (08:26)
[2016-09-04] MEDS: NEBIVOLOL 5 MG TAB PO SCH (08:26)
[2016-09-04] MEDS: HYDROCODONE/APAP (5/325) TAB PO PRN ×2 (10:59→22:22)
[2016-09-04] MEDS ORDERED: HYDROCODONE/APAP (5/325) TAB PO PRN (11:00)
--- NOTE | 2016-09-04 12:16 | PN ---
DATE: 09/04/2016 Postop day #1 status post right modified radical mastectomy with level I axillary dissection SUBJECTIVE: Complains of pain, actually too much pain in the left side of the operation. Has been out bed. Has tolerated food, but no bowel movement. PHYSICAL EXAMINATION: GENERAL: Awake and alert, sitting in the chair. VITAL SIGNS: Temperature 97.6, heart rate 64, respirations 20, blood pressure 155/67, saturation 97% on 2 liters oxygen. CHEST: Amor-Bradshaw drain from since operation until 6 o'clock today morning, both of them have drained 172 mL of drainage, bloody. Since 6:00 a.m. until now , which is 12 o'clock, has drained 60 mL of bloody drainage. The [place] bandage along the chest wall, the patient claims that it is too tight, so the nurses were instructed to loosen it up and rewrap it again. PLAN: Considering that since the operation, she has lost about 240 mL of bloody drainage from the Amor-Bradshaw and the patient also has been hypertensive , her blood pressure medication and the age, I prefer to keep the patient overnight to make sure that it is not bleeding more, We will check a CBC in the morning and hopefully discharge the patient tomorrow. Dictated By: KARLA DU/MAYKEL Conf#: [id number] DID#: [id number] MTDD
--- NOTE | 2016-09-04 17:21 | PN ---
Date/Time of Note Date/Time of Note DATE: 09/04/16 TIME: 17:17 Assessment/Plan VTE Prophylaxis VTE Prophylaxis Intervention: SCD's Lines/Catheters IV Catheter Type (from Nrs): Saline Lock Assessment/Plan Chief Complaint/Hosp Course Patient denies any nausea vomiting pain is well controlled, has a large output from JPs 2, continue to monitor JOEL drainage and CBC and BMP tomorrow. Problems: Assessment/Plan 1. Ductal carcinoma in situ, right breast, status post right modified radical mastectomy. Tylenol and morphine as needed for pain and Zofran as needed for nausea. 2. Hypertension. Continue by Bystolic 3. 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 Continue Aricept 5. Chronic obstructive pulmonary disease. Continue breathing treatment as needed. Exam/Review of Systems Vital Signs Vitals Vital Signs Date Time Temp Pulse Resp B/P Pulse Ox O2 Delivery O2 Flow Rate FiO2 09/04/16 02:28 97.6 64 20 155/67 97 09/03/16 18:20 2.0 09/03/16 13:19 Nasal Cannula Intake and Output 09/03/16 09/03/16 09/04/16 15:00 23:00 07:00 Intake Total 800 ml 440 ml 900 ml Output Total 27 ml 75 ml 870 ml Balance 773 ml 365 ml 30 ml Exam Constitutional: alert Head: normocephalic Neck: supple Respiratory: normal air movement Cardiovascular: nl pulses Gastrointestinal: non-tender, soft Musculoskeletal: nl extremities to inspection Extremities: normal pulses Neurological: nl mental status Skin: other (Status post right mastectomy) Results Results 24 hrs Laboratory Tests Test 09/04/16 05:17 Lab Scanned Report REFERENCE LAB Medications Medications Current Medications Ondansetron HCl 4 mg 4 mg Q6H PRN IV NAUSEA AND/OR VOMITING; Start 09/03/16 at 13:30 Potassium Chloride/Dextrose/ Sod Cl (D5-1/2ns + KCl 20 Meq) 1,000 ml @ 125 mls/ hr Q8H IV Last administered on 09/03/16 22:17; Admin Dose 125 MLS/HR; Start at 13:01 Morphine Sulfate 2 mg 2 mg Q1H PRN IV PAIN Last administered on 09/04/16 08:27 ; Admin Dose 2 MG; Start 09/03/16 at 13:30 Acetaminophen (Ofirmev 1000mg/ 100ml Iv) 100 ml @ 400 mls/hr Q6H PRN IVPB PAIN Last administered on 09/03/16 15:51; Admin Dose 400 MLS/HR; Start at 13:30 Donepezil HCl (Aricept) 5 mg QHS PO Last administered on 09/03/16 22:16; Admin Dose 5 MG; Start 09/03/16 at 21:00 Miscellaneous Medication (Bystolic) 5 mg DAILY PO Last administered on 08:26; Admin Dose 5 MG; Start 09/03/16 at 20:00 Mometasone Furoate (Asmanex) 1 puff DAILY INH Last administered on 09/04/16 08 :26; Admin Dose 1 PUFF; Start 09/04/16 at 09:00 Acetaminophen/ Hydrocodone Bitart ([place] (5/325)) 1 tab Q4H PRN PO PAIN LEVEL 1 -5; Start 09/04/16 at 11:00 Acetaminophen/ Hydrocodone Bitart ([place] (5/325)) 2 tab Q4H PRN PO PAIN LEVEL 6 -10 Last administered on 09/04/16 10:59; Admin Dose 2 TAB; Start 09/04/16 at 11 :00 GRZEGORZ IBARRA Sep 04, 2016 17:21
[2016-09-04 19:53] VITALS: BP 128/58; RESP 18
[2016-09-04] MEDS: DONEPEZIL 5 MG TAB PO SCH (20:18)
[2016-09-05] VITALS: BP 123/62; RESP 18
[2016-09-05] MEDS: D5W-0.45 NACL + KCL 20 MEQ 1,000 ML IV SCH ×2 (04:39→13:01)
[2016-09-05 09:28] VITALS: BP 134/51; RESP 18
[2016-09-05] MEDS: MOMETASONE 0.24 GM INHALER INH SCH (10:01)
[2016-09-05] MEDS: NEBIVOLOL 5 MG TAB PO SCH (10:02)
[2016-09-05 10:43] LABS: ADD SCAN DIFF NO
[2016-09-05 10:57] LABS: BASOPHILS % 0.1 % (0.0-2.0); EOSINOPHILS # 0.2 10^3/ul (0.0-0.5); EOSINOPHILS % 2.6 % (0.0-7.0); HEMATOCRIT 33.9 % (37.0-47.0); HEMOGLOBIN 11.6 g/dl (12.0-16.0); LYMPHOCYTES # 1.2 10^3/ul (0.8-2.9); LYMPHOCYTES % 15.8 % (15.0-51.0); MEAN CORPUSCULAR HEMOGLOBIN 31.8 pg (29.0-33.0); MEAN CORPUSCULAR HGB CONC 34.2 g/dl (32.0-37.0); MEAN CORPUSCULAR VOLUME 92.9 fl (82.0-101.0); MEAN PLATELET VOLUME 8.7 fl (7.4-10.4); MONOCYTE # 0.8 10^3/ul (0.3-0.9); MONOCYTES % 10.2 % (0.0-11.0); NEUTROPHIL # 5.3 10^3/ul (1.6-7.5); PLATELET COUNT 200 10^3/UL (140-415); RED BLOOD COUNT 3.65 10^6/ul (4.20-5.40); WHITE BLOOD COUNT 7.5 10^3/ul (4.8-10.8)
--- NOTE | 2016-09-05 11:28 | PN ---
DATE: 09/05/2016 Postop day #2 status post right breast excision with axillary dissection. SUBJECTIVE: Feels better. OBJECTIVE: VITAL SIGNS: Temperature 98.7, heart rate 63, respirations 18, blood pressure 134/51, saturation 98 % on room air. Amor-Bradshaw drain ____ 195 mL. The fluid is serosanguineous now and today's CBC s hows WBC 7500, hemoglobin 11.6, hematocrit 33.9. ABDOMEN: Soft. Patient tolerated diet. Pain is under control. PLAN: The patient can be discharged home. Instruction was given and will be given by the nurses to patient how to drain the Amor-Bradshaw drains, how to record the drainage and patient to call Dr. Bela gardner' office on Wednesday and make an appointment for followup. Pain medication will be given upon dis charge. Dictated By: KARLA HOWARD MD PS/MAYKEL Conf#: [id number] DID#: [id number]
[2016-09-05 11:30] LABS: CALCIUM 9.1 mg/dl (8.4-10.2); CREATININE 0.73 mg/dl (0.44-1.00); POTASSIUM 4.2 mmol/L (3.5-5.1)
[2016-09-05] MEDS: HYDROCODONE/APAP (5/325) TAB PO PRN ×2 (12:26→19:18)
--- NOTE | 2016-09-05 20:44 | DS ---
Date/Time of Note Date/Time of Note DATE: 09/05/16 TIME: 17:13 Discharge Summary Admission/Discharge Info Admit Date/Time Discharge Date/Time Final Diagnosis 1. Ductal carcinoma in situ, right breast, status post right modified radical mastectomy. Tylenol and morphine as needed for pain and Zofran as needed for nausea. 2. Hypertension. Continue by Bystolic 3. 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 Continue Aricept 5. Chronic obstructive pulmonary disease. Continue breathing treatment as needed. Patient Condition: Stable Hospital Course Patient denies any nausea vomiting pain is well controlled, has a large output from JPs 2, continue to monitor JOEL drainage and CBC and BMP tomorrow. Home Meds Active Scripts Beclomethasone Dip* (Qvar 40*) 7.3 Gm Inha, 1 PUFF INH BID, #1 INHALER 1 Refill Prov:TONY ALEJANDRO MD 03/27/16 Albuterol Sulfate* (Ventolin HFA*) 18 Gm Hfa.aer.ad, 2 PUFF INH Q4H RESP THERAPY Y for SHORTNESS OF BREATH, #1 1 Refill Prov:TONY ALEJANDRO MD 03/27/16 Aspirin* (Aspirin* EC) 81 Mg Tablet.dr, 81 MG PO DAILY for 30 Days Prov:TONY ALEJANDRO MD 03/27/16 Reported Medications Nitrofurantoin Monohyd Macrocr* (Macrobid*) 100 Mg Capsr, 100 MG PO BID, CAP 09/03/16 Mirabegron (Myrbetriq) 50 Mg Tab.er.24h, 25 MG PO DAILY, TAB 09/03/16 Nebivolol* (Bystolic*) 5 Mg Tab, 5 MG PO DAILY, #30 TAB 01/15/16 Donepezil* (Donepezil*) 5 Mg Tablet, 5 MG PO DAILY, #30 TAB 01/15/16 Discontinued Scripts Hydralazine Hcl* (Hydralazine Hcl*) 10 Mg Tablet, 10 MG PO Q8 for 30 Days, TAB 1 Refill Prov:TONY ALEJANDRO MD 03/27/16 Tramadol HCl (Tramadol HCl) 50 Mg Tablet, 50 MG PO BID, #30 TAB Prov:TONY ALEJANDRO MD 01/19/16 Primary Care Provider Emmanuel Centeno Pending Labs Laboratory Tests Test 09/05/16 10:15 White Blood Count 7.510^3/ul (4.8-10.8) Red Blood Count 3.6510^6/ul (4.20-5.40) Hemoglobin 11.6g/dl (12.0-16.0) Hematocrit 33.9% (37.0-47.0) Mean Corpuscular Volume 92.9fl (82.0-101.0) Mean Corpuscular Hemoglobin 31.8pg (29.0-33.0) Mean Corpuscular Hemoglobin Concent 34.2g/dl (32.0-37.0) Red Cell Distribution Width 13.0% (11.5-14.5) Platelet Count 53016^3/UL (140-415) Mean Platelet Volume 8.7fl (7.4-10.4) Neutrophils % 71.0% (39.0-77.0) Lymphocytes % 15.8% (15.0-51.0) Monocytes % 10.2% (0.0-11.0) Eosinophils % 2.6% (0.0-7.0) Basophils % 0.1% (0.0-2.0) Nucleated Red Blood Cells % 0.0/100WBC (0.0-0.0) Neutrophils # 5.310^3/ul (1.6-7.5) Lymphocytes # 1.210^3/ul (0.8-2.9) Monocytes # 0.810^3/ul (0.3-0.9) Eosinophils # 0.210^3/ul (0.0-0.5) Basophils # 0.010^3/ul (0.0-0.1) Nucleated Red Blood Cells # 0.010^3/ul (0.0-0.0) Sodium Level 139mmol/L (135-144) Potassium Level 4.2mmol/L (3.5-5.1) Chloride Level 108mmol/L (97-110) Carbon Dioxide Level 27mmol/L (21-31) Anion Gap 8 (8-16) Blood Urea Nitrogen 17mg/dl (7-20) Creatinine 0.73mg/dl (0.44-1.00) Glucose Level 100mg/dl (70-220) Calcium Level 9.1mg/dl (8.4-10.2) FELISHA ROSALES 17, 2017 17:14
--- NOTE | 2016-09-05 20:44 | DS ---
Date/Time of Note Date/Time of Note DATE: 09/05/16 TIME: 17:20 Discharge Summary Admission/Discharge Info Admit Date/Time Discharge Date/Time Hospital Course Patient denies any nausea vomiting pain is well controlled, has a large output from JPs 2, continue to monitor JOEL drainage and CBC and BMP tomorrow. Home Meds Active Scripts Beclomethasone Dip* (Qvar 40*) 7.3 Gm Inha, 1 PUFF INH BID, #1 INHALER 1 Refill Prov:TONY ALEJANDRO MD 03/27/16 Albuterol Sulfate* (Ventolin HFA*) 18 Gm Hfa.aer.ad, 2 PUFF INH Q4H RESP THERAPY Y for SHORTNESS OF BREATH, #1 1 Refill Prov:TONY ALEJANDRO MD 03/27/16 Aspirin* (Aspirin* EC) 81 Mg Tablet.dr, 81 MG PO DAILY for 30 Days Prov:TONY ALEJANDRO MD 03/27/16 Reported Medications Mirabegron (Myrbetriq) 50 Mg Tab.er.24h, 25 MG PO DAILY, TAB 09/03/16 Nebivolol* (Bystolic*) 5 Mg Tab, 5 MG PO DAILY, #30 TAB 01/15/16 Donepezil* (Donepezil*) 5 Mg Tablet, 5 MG PO DAILY, #30 TAB 01/15/16 Discontinued Reported Medications Nitrofurantoin Monohyd Macrocr* (Macrobid*) 100 Mg Capsr, 100 MG PO BID, CAP 09/03/16 Discontinued Scripts Hydralazine Hcl* (Hydralazine Hcl*) 10 Mg Tablet, 10 MG PO Q8 for 30 Days, TAB 1 Refill Prov:TONY ALEJANDRO MD 03/27/16 Tramadol HCl (Tramadol HCl) 50 Mg Tablet, 50 MG PO BID, #30 TAB Prov:TONY ALEJANDRO MD 01/19/16 Primary Care Provider Emmanuel Centeno Pending Labs Laboratory Tests Test 09/05/16 10:15 White Blood Count 7.510^3/ul (4.8-10.8) Red Blood Count 3.6510^6/ul (4.20-5.40) Hemoglobin 11.6g/dl (12.0-16.0) Hematocrit 33.9% (37.0-47.0) Mean Corpuscular Volume 92.9fl (82.0-101.0) Mean Corpuscular Hemoglobin 31.8pg (29.0-33.0) Mean Corpuscular Hemoglobin Concent 34.2g/dl (32.0-37.0) Red Cell Distribution Width 13.0% (11.5-14.5) Platelet Count 75220^3/UL (140-415) Mean Platelet Volume 8.7fl (7.4-10.4) Neutrophils % 71.0% (39.0-77.0) Lymphocytes % 15.8% (15.0-51.0) Monocytes % 10.2% (0.0-11.0) Eosinophils % 2.6% (0.0-7.0) Basophils % 0.1% (0.0-2.0) Nucleated Red Blood Cells % 0.0/100WBC (0.0-0.0) Neutrophils # 5.310^3/ul (1.6-7.5) Lymphocytes # 1.210^3/ul (0.8-2.9) Monocytes # 0.810^3/ul (0.3-0.9) Eosinophils # 0.210^3/ul (0.0-0.5) Basophils # 0.010^3/ul (0.0-0.1) Nucleated Red Blood Cells # 0.010^3/ul (0.0-0.0) Sodium Level 139mmol/L (135-144) Potassium Level 4.2mmol/L (3.5-5.1) Chloride Level 108mmol/L (97-110) Carbon Dioxide Level 27mmol/L (21-31) Anion Gap 8 (8-16) Blood Urea Nitrogen 17mg/dl (7-20) Creatinine 0.73mg/dl (0.44-1.00) Glucose Level 100mg/dl (70-220) Calcium Level 9.1mg/dl (8.4-10.2) FELISHA ROSALES Sep 05, 2016 17:20
--- NOTE | 2016-09-05 20:44 | PDOCDIS ---
Discharge Instructions CONDITION Patient Condition: Stable HOME CARE INSTRUCTIONS: Diet Instructions: RegularSpecial Diet: REGULAR ACTIVITY: Activity Restrictions: Slowly Increase Activity Rest between Activity Avoid heavy lifting Do not operate Machinery Do not operate Power Tool Avoid Heavy Housework Bathing Restrictions: Sponge BathActivity Restrictions Comment: No Heavy lifting on left arm No BP NO Lab draw on Right arm FOLLOW UP/APPOINTMENTS Appointments FU with PMD X 1 week FU with Ortho as recommended. Call 911 or go to nearest hospital if symptoms worsen. Plan dw Dr Gonsalez/staff. FELISHA ROSALES Sep 05, 2016 17:17
[2016-09-05 21:16] VITALS: BP 121/58; RESP 20
== END 2016-09-05 20:45 | disposition home or self-care (01) ==
LOC: SDS 08:15 → MS1 15:45 → SDS 09-05 20:45
PROVIDERS: ATTEND Surgery Surgical Oncology
DX: C50.911 Malignant neoplasm of unspecified site of right female breast (principal); I10 Essential (primary) hypertension; J44.9 Chronic obstructive pulmonary disease, unspecified; E66.9 Obesity, unspecified; Z68.29 Body mass index [BMI] 29.0-29.9, adult
CPT/HCPCS: 19307; 71010; 80048; 85025; 88309; J0131; J0690; J1170; J2270; J2405; J2710; J3010; J3480; J7999

== ENCOUNTER 2017-01-29 10:52 | Day surgery (SDC) | payer MEDICARE, OTHER ==
[2017-01-29] VITALS (9 sets, daily range): BP systolic 128–164; BP diastolic 53–77; PULSE 20–69; RESP 11–20; Ht 157.5 cm; Wt 78.9 kg
[~2017-01-29] VITALS: Ht 157.5 cm; Wt 78.9 kg
[~2017-01-29 10:52] MED LIST changes: -HYDR-3670 PO; +MIRA50TA PO; -TRAM50TA2 PO
[2017-01-29] MEDS ORDERED: SOD CHLORIDE 0.9% 1,000 ML IV ONE (11:45)
--- NOTE | 2017-01-29 11:47 | RADRPT ---
PROCEDURE: XR Chest. CLINICAL INDICATION: Preop TECHNIQUE: An AP view of the chest was obtained. COMPARISON: Chest x-ray dated 09/03/2016 FINDINGS: There is prominence of the interstitial markings. No pleural effusion or pneumothorax is seen. Th e cardiomediastinal silhouette is mildly enlarged . Calcifications are seen within the aortic arch. The osseous structures demonstrate senescent changes. IMPRESSION: 1. Mild prominence of the interstitial markings, may reflect mild underlying interstitial edema or chronic lung changes. No significant interval change. 2. Mild cardiomegaly and aortic atherosclerosis. RPTAT: HH .Zahida Cox MD, MD Date Time Electronically viewed and signed by .Zahida Cox MD, on 01/29/2017 11:47 .G/
[2017-01-29] MEDS ORDERED: CEFAZOLIN 2 GM/50 ML (PMX) 50 ML IVPB ONE (12:00)
[2017-01-29] MEDS ORDERED: LIDOCAINE 1% (MDV) 20 ML INJ ONE (13:21)
[2017-01-29] MEDS ORDERED: PROPOFOL 0 ML ONE (13:21)
[2017-01-29] MEDS ORDERED: ESMOLOL 10 ML ONE ×2 (13:25→13:26)
[2017-01-29] MEDS ORDERED: LIDOCAINE 1% (MPF) 30 ML INJ ONE (13:29)
[2017-01-29] MEDS ORDERED: LIDOCAINE 2% (MDV) 20 ML INJ ONE (13:29)
[2017-01-29] MEDS ORDERED: BUPIVACAINE 0.5% (SDV) 30 ML INJ ONE (13:29)
[2017-01-29] MEDS ORDERED: BUPIVACAINE 0.5%/EPI (SDV) 30 ML INJ ONE (13:29)
[2017-01-29] MEDS ORDERED: MIDAZOLAM 1 MG/ML 2 ML INJ ONE (13:48)
[2017-01-29] MEDS ORDERED: PROPOFOL 20 ML ONE (13:55)
[2017-01-29] MEDS ORDERED: CEFAZOLIN 1 GM INJ ONE (13:55)
[2017-01-29] MEDS ORDERED: LABETALOL HCL 20MG INJ ONE (13:56)
[2017-01-29] MEDS ORDERED: ACETAMINOPHEN 1000MG/100ML IV 100 ML ONE (13:58)
--- NOTE | 2017-01-29 14:14 | SIPON ---
Date/Time of Note Date/Time of Note DATE: 01/29/17 TIME: 14:12 Operative Report Preoperative Diagnosis Right chest wall seroma/hematoma Postoperative Diagnosis Same Operation/Procedure Performed Incision and drainage of right chest wall seroma/hematoma Surgeon see signature line assistant finance director Dr Coleman Anesthesia: general Estimated blood loss: 0 - 10 ml's Transfusion Required none Specimen None Grafts/Implants none Complications none YUAN THRASHER MD Jan 29, 2017 14:14
[2017-01-29] MEDS ORDERED: HYDROmorphONE (0.2 MG/ML) 10ML SYG IV PRN ×2 (15:00)
[2017-01-29] MEDS ORDERED: FENTAnyl 50 MCG/ML VIAL IV PRN (15:00)
[2017-01-29] MEDS ORDERED: ONDANSETRON 4 MG INJ IV PRN (15:00)
--- NOTE | 2017-01-29 16:47 | OPR ---
DATE OF OPERATION: 01/29/2017 PREOPERATIVE DIAGNOSIS: History of right breast cancer, need for drainage of right chest wall serom a/hematoma. POSTOPERATIVE DIAGNOSIS: History of right breast cancer, need for drainage of right chest wall sero ma/hematoma. OPERATION PERFORMED: Incision and drainage of right chest wall seroma/hematoma. ANESTHESIA: IV sedation. ANESTHESIOLOGIST: Geo Alexander DO SURGEON: Shayne Victor MD WATCH AND CLOCK MAKER AND REPAIRER: Dr. Coleman. INDICATIONS FOR PROCEDURE: The patient is a pleasant 76-year-old female who previously underwent a right modified radical mastectomy for invasive cancer. However, after several weeks she had a large residual fluid collection consistent with either seroma or hematoma. She requested incision and dr blair. She consented and was scheduled for surgery. DESCRIPTION OF PROCEDURE: The patient was brought to the operating theater, placed under IV sedatio n. The right chest wall was prepped and draped in usual sterile fashion. The most lateral aspect o f the previous mastectomy scar was then infiltrated with 1% lidocaine local anesthetic and a small a pproximately 1 to 2 cm incision was made. This allowed entry into this cavity. At least 200 millil iters of straw-colored seroma fluid was then encountered and evacuated with suction. A #10 flat Izaiah kson-Bradshaw drain was then brought through the small incision and laid over the pectoralis major musc le. It was secured in place with 2-0 nylon suture. This concluded the procedure. The patient tole rated the procedure well. Estimated blood loss was 5 mL. There were no complications and the patie nt was transported in stable condition to the recovery room. Dictated By: SHAYNE VICTOR MD TL/NTS Conf#: [id number] DID#: [id number] CC: KHLOE COLEMAN MD;*EndCC*
--- NOTE | 2017-01-30 15:06 | RADRPT ---
Vent Rate: 70 bpm RR Interval: 0 msec TN Interval: 146 msec QRS Duration: 92 msec QT Interval: 400 msec QTC Interval: 432 msec P-R-T [place]: 56 - 47 - 63 degrees Normal sinus rhythm Normal ECG No previous tracing available for comparison Electronically Signed By: Avery Stout [id number]
== END 2017-01-29 16:32 | disposition home or self-care (01) ==
LOC: SDS 10:52
PROVIDERS: ATTEND Surgery Surgical Oncology
DX: L76.34 Postprocedural seroma of skin and subcutaneous tissue following other procedure (principal); L76.32 Postprocedural hematoma of skin and subcutaneous tissue following other procedure; I10 Essential (primary) hypertension; G30.9 Alzheimer's disease, unspecified; F02.80 Dementia in other diseases classified elsewhere, unspecified severity, without behavioral disturbance, psychotic disturbance, mood disturbance, and anxiety; J45.909 Unspecified asthma, uncomplicated; Z85.3 Personal history of malignant neoplasm of breast; Y83.8 Other surgical procedures as the cause of abnormal reaction of the patient, or of later complication, without mention of misadventure at the time of the procedure
CPT/HCPCS: 10140; 71010; 93005; J0131; J0690; J2250; J2405; J3010

== ENCOUNTER 2018-10-30 01:36 | Emergency (ER) | payer MEDICARE, OTHER ==
[~2018-10-30] VITALS: Ht 157.5 cm; Wt 72.7 kg
[~2018-10-30 01:36] MED LIST changes: +ADV25050 INHALATION; +AMLO-147 PO; -ASPI-664 PO; +ASPI-817 PO; +GABA100C14 PO; +HYDR-3980 PO; +IBUP-1542 PO; +ONDA4TAB14 PO; +PANT40TA4 PO; +TRAM50TA2 PO
[2018-10-30 01:37] VITALS: Ht 157.5 cm; Wt 72.7 kg
[2018-10-30] MEDS ORDERED: IBUPROFEN 800 MG TAB PO ONE (02:30)
--- NOTE | 2018-10-30 02:43 | ERD ---
ER Documentation Chief Complaint Chief Complaint Abdominal pain x 3 weeks getting worse,h/o right breast cancer,denies n/v/d ROS All systems reviewed and are negative except as per history of present illness. Medications Home Meds Active Scripts Ibuprofen* (Motrin*) 600 Mg Tab, 600 MG PO Q6H PRN for PAIN AND OR ELEVATED TEMP, #12 TAB Prov:KIM MARIN MD 10/30/18 Beclomethasone Dip* (Qvar 40*) 7.3 Gm Inha, 1 PUFF INH BID, #1 INHALER 1 Refill Prov:TONY ALEJANDRO MD 03/27/16 Albuterol Sulfate* (Ventolin HFA*) 18 Gm Hfa.aer.ad, 2 PUFF INH Q4H RESP THERAPY PRN for SHORTNESS OF BREATH, #1 1 Refill Prov:TONY ALEJANDRO MD 03/27/16 Aspirin* (Aspirin* EC) 81 Mg Tablet.dr, 81 MG PO DAILY for 30 Days Prov:TONY ALEJANDRO MD 03/27/16 Reported Medications Mirabegron (Myrbetriq) 50 Mg Tab.er.24h, 25 MG PO DAILY, TAB 09/03/16 Nebivolol* (Bystolic*) 5 Mg Tab, 5 MG PO DAILY, #30 TAB 01/15/16 Donepezil* (Donepezil*) 5 Mg Tablet, 5 MG PO DAILY, #30 TAB 01/15/16 Allergies Allergies: Coded Allergies: No Known Allergy (Unverified , 09/03/16) PMhx/Soc History of Surgery: Yes (ISRRAEL.KNEE,R MASTECTOMY,CHOLECYSTITIS) Anesthesia Reaction: No Hx Neurological Disorder: No Hx Respiratory Disorders: Yes (ASTHMA) Hx Cardiac Disorders: Yes (HTN,) Hx Psychiatric Problems: Yes (ALZHEIMERS) Hx Miscellaneous Medical Probl: Yes (BREAST CA) Hx Alcohol Use: No Hx Substance Use: No Hx Tobacco Use: No Physical Exam Vitals Vital Signs Date Temp Pulse Resp B/P (MAP) Pulse Ox O2 O2 Flow FiO2 Time Delivery Rate 10/30/18 99.8 92 20 120/68 99 01:37 (85) Physical Exam Const: No acute distress Head: Atraumatic Eyes: Normal Conjunctiva ENT: Normal External Ears, Nose and Mouth. Neck: Full range of motion. No meningismus. Resp: Clear to auscultation bilaterally Cardio: Regular rate and rhythm, no murmurs Abd: Soft, non tender, non distended. Normal bowel sounds Skin: No petechiae or rashes Back: No midline or flank tenderness Ext: No cyanosis, or edema Neur: Awake and alert Psych: Normal Mood and Affect Results 24 hrs Current Medications Medications Dose Sig/Balaji Start Time Status Last (Trade) Ordered Route PRN Stop Time Admin Dose Reason Admin Ibuprofen 800 mg ONCE ONCE 10/30/18 DC 10/30/18 (Motrin) PO 02:30 02:32 10/30/18 02:31 Procedures/MDM EKG read by me: Rate/Rhythm: Regular rate and rhythm at a rate of 84 Intervals: Normal Impression: No evidence of ischemia or arrhythmia Chest X-ray 1V Interpreted by me: Soft Tissue: No acute abnormalities Bones: No acute abnormalities Mediastinum/Cardiac Silhouette/Lungs: Chronic lung changes without signs of pneumonia or pneumothorax Departure Diagnosis: Primary Impression: Chest pain Chest pain type: unspecified Qualified Codes: R07.9 - Chest pain, unspecified Condition: Fair Patient Instructions: Chest Pain, Uncertain Cause Additional Instructions: Llame al doctor MAANA y miguel a lauryn DI PARA DENTRO DE 1-2 HAHN.Dgale a la secretaria que nosotros le instruimos hacer esta di.Avise o llame si vickers condicin se empeora antes de la di. Regresa aqui si peor o no mejor. KIM MARIN MD Oct 30, 2018 02:43
[2018-10-30 04:05] VITALS: BP 132/60; PULSE 79; RESP 17
== END 2018-10-30 04:15 | disposition home or self-care (01) ==
LOC: E/R 01:36
DX: I10 Essential (primary) hypertension (principal); J45.909 Unspecified asthma, uncomplicated; G30.9 Alzheimer's disease, unspecified; Z85.3 Personal history of malignant neoplasm of breast; Z79.82 Long term (current) use of aspirin
CPT/HCPCS: 71045; 93005

== ENCOUNTER 2018-10-31 23:48 | Emergency (ER) | payer MEDICARE, OTHER ==
[~2018-10-31] VITALS: Ht 162.6 cm; Wt 71.4 kg
[2018-10-31 23:50] VITALS: Ht 162.6 cm; Wt 71.4 kg
[2018-11-01] MEDS ORDERED: SOD CHLORIDE 0.9% 500 ML IV STA (00:57)
[2018-11-01] MEDS ORDERED: morphine 2 MG INJ IV STA (00:57)
[2018-11-01] MEDS ORDERED: ONDANSETRON 4 MG INJ IV STA (00:57)
[2018-11-01 09:24] VITALS: BP 126/72; PULSE 80; RESP 19
== END 2018-11-01 09:28 | disposition home or self-care (01) ==
LOC: E/R 23:48
DX: R10.11 Right upper quadrant pain (principal); I10 Essential (primary) hypertension; J45.909 Unspecified asthma, uncomplicated; G30.9 Alzheimer's disease, unspecified; R11.0 Nausea; Z79.82 Long term (current) use of aspirin; Z85.3 Personal history of malignant neoplasm of breast; Z96.653 Presence of artificial knee joint, bilateral
CPT/HCPCS: 71045; 74176; 80053; 83690; 84484; 85025; 93005; J2270; J2405; J7040; 36415; 96374; 96375